=== PATIENT | female | born 1955 | race Caucasian/White ===

== ENCOUNTER 2022-07-05 13:08 | Inpatient (IN) | payer OTHER ==
[~2022-07-05] VITALS: Ht 160 cm; Wt 82.2 kg
[2022-07-05 13:39] LABS: Basophils # (auto) 0.1 10 ^3/uL (0-0.2); Basophils % (auto) 0.8 % (0.0-2.0); Eosinophils # (auto) 0.2 10 ^3/uL (0-0.8); Eosinophils % (auto) 2.3 % (0.0-7.0); Hematocrit 31.7 % (36.0-46.0); Hemoglobin 10.6 g/dL (12.2-16.2); Lymphocytes # (auto) 1.1 10 ^3/uL (0.4-5.4); Lymphocytes % (auto) 14.7 % (10.0-50.0); Mean Corpuscular Hemoglobin 31.6 pg (28.0-32.0); Mean Corpuscular Hgb Conc. 33.5 g/dL (32.0-36.0); Mean Corpuscular Volume 94.3 fL (80.0-100.0); Monocytes # (auto) 0.4 10 ^3/uL (0-1.3); Monocytes % (auto) 5.7 % (0.0-12.0); Neutrophils # (auto) 5.7 10 ^3/uL (1.6-8.6); Neutrophils % (auto) 76.5 % (37.0-80.0); Nucleated Red Blood Cells % 0.1 %; Red Blood Cells 3.36 10^6/uL (4.0-5.20); Red Cell Distribution Width 13.4 % (11.8-14.3); White Blood Cell 7.5 10^3/uL (4.4-10.8)
[2022-07-05 14:04] LABS: Albumin 3.7 g/dL (3.4-5.0); Calcium 8.5 mg/dL (8.5-10.1); Potassium 4.4 mmol/L (3.5-5.1)
[2022-07-05 14:08] LABS: Bilirubin, Total 0.6 mg/dL (0.2-1.0); Total Protein 6.7 g/dL (6.4-8.2)
[2022-07-05 14:09] LABS: BUN/Creatinine Ratio 6.9
[2022-07-05] MEDS ORDERED: FUROSEMIDE 40 MG/4 ML VIAL IV ONE (15:45)
[2022-07-05] MEDS ORDERED: ENOXAPARIN SOD 80 MG/0.8ML SYRINGE SC ONE (15:45)
[2022-07-05 16:50] LABS: Urine Bacteria NONE SEEN /hpf (None Seen); Urine Blood TRACE /uL (Negative); Urine Specific Gravity 1.009 (1.001-1.035); Urine WBC 3 /hpf (0 - 5)
[2022-07-05] MEDS ORDERED: ATOR40TA52 PO (17:09)
[2022-07-05] MEDS ORDERED: SEVE800T10 PO (17:09)
[2022-07-05] MEDS ORDERED: ATEN50TA PO (17:09)
[2022-07-05] MEDS ORDERED: CALC667C PO (17:09)
[2022-07-05] MEDS ORDERED: ALBUTEROL SULF 2.5 MG/0.5ML(0.5%) NEB SOLN NEB PRN (17:15)
[2022-07-05] MEDS ORDERED: DEXTROSE (50%) 50ML SYRG IV PRN (17:15)
[2022-07-05 17:27] LABS: Cholesterol 116 mg/dL (< 200); Triglycerides 230 mg/dL (< 150)
[2022-07-05 17:29] LABS: HDL Cholesterol 39 mg/dL (40-59); LDL Cholesterol 57 mg/dL (< 100)
[2022-07-05] MEDS: IPRATROPIUM BROM 0.5 MG/2.5ML INH SOL NEB SCH (18:47)
[2022-07-05] MEDS: ALBUTEROL SULF 2.5 MG/0.5ML(0.5%) NEB SOLN NEB SCH (18:47)
[2022-07-05] MEDS: ACCU-CHEK COMFORT CURVE STRIP VI SCH (22:08)
[2022-07-05] MEDS: hydrALAZINE HCL 20 MG/ML VL IV PRN (22:09)
[2022-07-05] MEDS: InsuLIN REG 1unit/0.01ml Soln (100units/ml) SC SCH (22:11)
[2022-07-05] MEDS: SODIUM CHLOR 0.9% PF (SALINE LOCK) 10ML VIAL/SYR IV SCH (22:11)
[2022-07-06] MEDS: ALBUTEROL SULF 2.5 MG/0.5ML(0.5%) NEB SOLN NEB SCH ×4 (00:16→18:38)
[2022-07-06] MEDS: IPRATROPIUM BROM 0.5 MG/2.5ML INH SOL NEB SCH ×4 (00:16→18:39)
[2022-07-06 01:39] VITALS: BP 198/90
[2022-07-06] MEDS: ACETAMINOPHEN 325 MG TAB PO PRN ×2 (02:52→18:49)
[2022-07-06 05:00] VITALS: BP 178/75
[2022-07-06] MEDS: SODIUM CHLOR 0.9% PF (SALINE LOCK) 10ML VIAL/SYR IV SCH ×3 (06:30→22:27)
[2022-07-06] MEDS: ACCU-CHEK COMFORT CURVE STRIP VI SCH ×4 (06:30→22:27)
[2022-07-06] MEDS: hydrALAZINE HCL 20 MG/ML VL IV PRN ×4 (06:34→18:49)
[2022-07-06] MEDS: InsuLIN REG 1unit/0.01ml Soln (100units/ml) SC SCH ×4 (06:35→22:38)
[2022-07-06 07:36] LABS: Basophils # (auto) 0.1 10 ^3/uL (0-0.2); Eosinophils # (auto) 0.2 10 ^3/uL (0-0.8); Eosinophils % (auto) 2.1 % (0.0-7.0); Hematocrit 32.5 % (36.0-46.0); Hemoglobin 10.6 g/dL (12.2-16.2); Lymphocytes # (auto) 1.6 10 ^3/uL (0.4-5.4); Lymphocytes % (auto) 16.9 % (10.0-50.0); Mean Corpuscular Hemoglobin 30.7 pg (28.0-32.0); Mean Corpuscular Hgb Conc. 32.5 g/dL (32.0-36.0); Mean Corpuscular Volume 94.4 fL (80.0-100.0); Monocytes # (auto) 0.5 10 ^3/uL (0-1.3); Monocytes % (auto) 5.1 % (0.0-12.0); Neutrophils % (auto) 74.9 % (37.0-80.0); Nucleated Red Blood Cells % 0.1 %; Red Blood Cells 3.45 10^6/uL (4.0-5.20); Red Cell Distribution Width 13.5 % (11.8-14.3); White Blood Cell 9.3 10^3/uL (4.4-10.8)
[2022-07-06 07:55] LABS: Albumin 3.6 g/dL (3.4-5.0); BUN/Creatinine Ratio 7.4; Calcium 8.6 mg/dL (8.5-10.1); Potassium 4.3 mmol/L (3.5-5.1)
[2022-07-06 08:14] LABS: Bilirubin, Total 0.4 mg/dL (0.2-1.0); Total Protein 7.1 g/dL (6.4-8.2)
[2022-07-06 09:09] VITALS: BP 185/85
[2022-07-06] MEDS ORDERED: ENOXAPARIN SOD 40 MG/0.4 ML SYRINGE SC SCH (10:00)
[2022-07-06] MEDS ORDERED: SODIUM CHL 0.9% 1000 ML BAG XX ONE (10:30)
[2022-07-06] MEDS: HEPARIN SODIUM (PORCINE) 5000 UNITS/ML 1ML VIAL SC SCH ×2 (10:42→22:28)
[2022-07-06 12:11] VITALS: BP 191/83
[2022-07-06 18:15] VITALS: BP 182/78
[2022-07-06] MEDS ORDERED: EPOETIN ALFA-EPBX 4,000 UNIT/ML VIAL SC ONE (21:00)
[2022-07-06 22:00] VITALS: BP 125/80
[2022-07-07] MEDS: ALBUTEROL SULF 2.5 MG/0.5ML(0.5%) NEB SOLN NEB SCH ×4 (00:22→19:40)
[2022-07-07] MEDS: IPRATROPIUM BROM 0.5 MG/2.5ML INH SOL NEB SCH ×4 (00:22→19:40)
[2022-07-07 05:00] VITALS: BP 170/77
[2022-07-07] MEDS: SODIUM CHLOR 0.9% PF (SALINE LOCK) 10ML VIAL/SYR IV SCH ×3 (06:00→22:19)
[2022-07-07] MEDS: hydrALAZINE HCL 20 MG/ML VL IV PRN ×2 (06:36→12:29)
[2022-07-07] MEDS: ACCU-CHEK COMFORT CURVE STRIP VI SCH ×4 (06:37→22:11)
[2022-07-07] MEDS: InsuLIN REG 1unit/0.01ml Soln (100units/ml) SC SCH ×4 (06:46→22:12)
[2022-07-07 09:00] VITALS: BP 176/76
[2022-07-07] MEDS: HEPARIN SODIUM (PORCINE) 5000 UNITS/ML 1ML VIAL SC SCH ×2 (10:00→22:19)
[2022-07-07] MEDS: ACETAMINOPHEN 325 MG TAB PO PRN ×2 (10:39→13:23)
[2022-07-07] MEDS ORDERED: ATENOLOL 50 MG TAB PO ONE (12:30)
[2022-07-07 13:00] VITALS: BP 181/93
[2022-07-07] MEDS: ONDANSETRON HCL 4 MG/2 ML VIAL IV PRN (13:12)
[2022-07-07 17:00] VITALS: BP 130/51
[2022-07-07 22:00] VITALS: BP 134/63
[2022-07-08] MEDS: IPRATROPIUM BROM 0.5 MG/2.5ML INH SOL NEB SCH ×4 (00:13→18:50)
[2022-07-08] MEDS: ALBUTEROL SULF 2.5 MG/0.5ML(0.5%) NEB SOLN NEB SCH ×4 (00:14→18:50)
[2022-07-08 05:00] VITALS: BP 140/57
[2022-07-08] MEDS: ACCU-CHEK COMFORT CURVE STRIP VI SCH ×4 (06:24→21:38)
[2022-07-08] MEDS: InsuLIN REG 1unit/0.01ml Soln (100units/ml) SC SCH ×4 (06:24→21:39)
[2022-07-08] MEDS: SODIUM CHLOR 0.9% PF (SALINE LOCK) 10ML VIAL/SYR IV SCH ×3 (06:28→21:39)
[2022-07-08 09:00] VITALS: BP 140/63
[2022-07-08] MEDS: ATENOLOL 50 MG TAB PO SCH (09:42)
[2022-07-08] MEDS: HEPARIN SODIUM (PORCINE) 5000 UNITS/ML 1ML VIAL SC SCH ×2 (09:43→21:38)
[2022-07-08 13:00] VITALS: BP 113/62
[2022-07-08] MEDS ORDERED: LACTULOSE 20Gm/30ML SOLN PO STA (16:56)
[2022-07-08 17:00] VITALS: BP 121/49
[2022-07-08] MEDS: ONDANSETRON HCL 4 MG/2 ML VIAL IV PRN ×2 (18:32→23:47)
[2022-07-08] MEDS: ACETAMINOPHEN 325 MG TAB PO PRN (19:30)
[2022-07-08 20:49] VITALS: BP 121/49
[2022-07-08] MEDS: hydrALAZINE HCL 20 MG/ML VL IV PRN (21:32)
[2022-07-08] MEDS: LACTULOSE 20Gm/30ML SOLN PO PRN (21:38)
[2022-07-08 22:00] VITALS: BP 164/56
[2022-07-09] MEDS: IPRATROPIUM BROM 0.5 MG/2.5ML INH SOL NEB SCH ×5 (00:10→23:53)
[2022-07-09] MEDS: ALBUTEROL SULF 2.5 MG/0.5ML(0.5%) NEB SOLN NEB SCH ×5 (00:10→23:53)
[2022-07-09] MEDS: ACETAMINOPHEN 325 MG TAB PO PRN (02:11)
[2022-07-09 05:00] VITALS: BP 137/74
[2022-07-09 05:41] LABS: Basophils # (auto) 0.1 10 ^3/uL (0-0.2); Basophils % (auto) 0.5 % (0.0-2.0); Eosinophils # (auto) 0 10 ^3/uL (0-0.8); Eosinophils % (auto) 0.1 % (0.0-7.0); Hematocrit 31.9 % (36.0-46.0); Lymphocytes # (auto) 0.5 10 ^3/uL (0.4-5.4); Lymphocytes % (auto) 3.4 % (10.0-50.0); Mean Corpuscular Hgb Conc. 31.4 g/dL (32.0-36.0); Mean Corpuscular Volume 95.5 fL (80.0-100.0); Monocytes % (auto) 6.2 % (0.0-12.0); Neutrophils # (auto) 14.3 10 ^3/uL (1.6-8.6); Neutrophils % (auto) 89.8 % (37.0-80.0); Red Blood Cells 3.34 10^6/uL (4.0-5.20); White Blood Cell 15.9 10^3/uL (4.4-10.8)
[2022-07-09 05:51] LABS: Albumin 3.4 g/dL (3.4-5.0); BUN/Creatinine Ratio 6.5; Potassium 4.4 mmol/L (3.5-5.1)
[2022-07-09 05:54] LABS: Bilirubin, Total 4.1 mg/dL (0.2-1.0); Total Protein 7.7 g/dL (6.4-8.2)
[2022-07-09] MEDS: SODIUM CHLOR 0.9% PF (SALINE LOCK) 10ML VIAL/SYR IV SCH ×3 (06:11→22:08)
[2022-07-09] MEDS: ACCU-CHEK COMFORT CURVE STRIP VI SCH ×4 (06:11→22:08)
[2022-07-09] MEDS: InsuLIN REG 1unit/0.01ml Soln (100units/ml) SC SCH ×4 (06:29→22:11)
[2022-07-09] MEDS ORDERED: SODIUM CHL 0.9% 1000 ML BAG XX ONE (07:00)
[2022-07-09 07:50] VITALS: BP 146/81
[2022-07-09] MEDS ORDERED: IOHEXOL 350 MG/ML 100ML IJ ONE (08:11)
[2022-07-09 09:00] VITALS: BP 146/81
[2022-07-09] MEDS: PANTOPRAZOLE 40 MG TAB PO SCH (10:43)
[2022-07-09] MEDS: HEPARIN SODIUM (PORCINE) 5000 UNITS/ML 1ML VIAL SC SCH ×2 (10:44→22:08)
[2022-07-09] MEDS: ATENOLOL 50 MG TAB PO SCH ×2 (10:49→14:47)
[2022-07-09 13:00] VITALS: BP 137/60
[2022-07-09] MEDS ORDERED: AZITHROMYCIN 500MG/ 250ML 250 ML IV ONE (13:30)
[2022-07-09] MEDS ORDERED: cefTRIAXone 1GM/50ML D5W 50 ML IV ONE (13:30)
[2022-07-09] MEDS ORDERED: DOCUSATE SOD 100 MG CAP PO ONE (13:30)
[2022-07-09 17:00] VITALS: BP 126/61
[2022-07-09 22:00] VITALS: BP 111/49
[2022-07-09] MEDS: DOCUSATE SOD 100 MG CAP PO SCH (22:08)
[2022-07-10] VITALS (7 sets, daily range): BP systolic 120–132; BP diastolic 53–69
[2022-07-10 05:32] LABS: Basophils # (auto) 0 10 ^3/uL (0-0.2); Basophils % (auto) 0.6 % (0.0-2.0); Eosinophils # (auto) 0.2 10 ^3/uL (0-0.8); Eosinophils % (auto) 2.8 % (0.0-7.0); Hematocrit 28.6 % (36.0-46.0); Hemoglobin 9.5 g/dL (12.2-16.2); Lymphocytes # (auto) 0.7 10 ^3/uL (0.4-5.4); Lymphocytes % (auto) 8.7 % (10.0-50.0); Mean Corpuscular Hemoglobin 31.5 pg (28.0-32.0); Mean Corpuscular Hgb Conc. 33.3 g/dL (32.0-36.0); Mean Corpuscular Volume 94.5 fL (80.0-100.0); Monocytes # (auto) 0.5 10 ^3/uL (0-1.3); Monocytes % (auto) 6.3 % (0.0-12.0); Neutrophils # (auto) 6.1 10 ^3/uL (1.6-8.6); Neutrophils % (auto) 81.6 % (37.0-80.0); Nucleated Red Blood Cells % 0.1 %; Red Blood Cells 3.03 10^6/uL (4.0-5.20); Red Cell Distribution Width 13.9 % (11.8-14.3); White Blood Cell 7.5 10^3/uL (4.4-10.8)
[2022-07-10] MEDS: IPRATROPIUM BROM 0.5 MG/2.5ML INH SOL NEB SCH ×4 (06:00→23:35)
[2022-07-10] MEDS: ALBUTEROL SULF 2.5 MG/0.5ML(0.5%) NEB SOLN NEB SCH ×4 (06:00→23:35)
[2022-07-10 06:05] LABS: Calcium 8.2 mg/dL (8.5-10.1)
[2022-07-10] MEDS: SODIUM CHLOR 0.9% PF (SALINE LOCK) 10ML VIAL/SYR IV SCH ×3 (06:15→22:36)
[2022-07-10] MEDS: ACCU-CHEK COMFORT CURVE STRIP VI SCH ×4 (06:15→22:41)
[2022-07-10] MEDS: InsuLIN REG 1unit/0.01ml Soln (100units/ml) SC SCH ×4 (06:15→22:49)
[2022-07-10 06:31] LABS: BUN/Creatinine Ratio 6.8; Potassium 4.2 mmol/L (3.5-5.1)
[2022-07-10] MEDS: cefTRIAXone 1GM/50ML D5W 50 ML IV SCH (08:37)
[2022-07-10] MEDS: PANTOPRAZOLE 40 MG TAB PO SCH (10:31)
[2022-07-10] MEDS: DOCUSATE SOD 100 MG CAP PO SCH ×2 (10:31→22:36)
[2022-07-10] MEDS: ATENOLOL 50 MG TAB PO SCH (10:32)
[2022-07-10] MEDS: AZITHROMYCIN 500MG/ 250ML 250 ML IV SCH (10:33)
[2022-07-10] MEDS: HEPARIN SODIUM (PORCINE) 5000 UNITS/ML 1ML VIAL SC SCH ×2 (10:37→22:36)
[2022-07-10] MEDS ORDERED: ALUM & MAG HYDROX-SIMETH LIQ(MAALOX) 30 ML PO PRN (11:15)
[2022-07-10] MEDS ORDERED: diphenhdrAMINE HCL 25 MG CAP PO PRN (11:15)
[2022-07-11 05:00] VITALS: BP 133/51
[2022-07-11] MEDS: IPRATROPIUM BROM 0.5 MG/2.5ML INH SOL NEB SCH ×2 (05:55→11:22)
[2022-07-11] MEDS: ALBUTEROL SULF 2.5 MG/0.5ML(0.5%) NEB SOLN NEB SCH ×2 (05:56→11:22)
[2022-07-11] MEDS: SODIUM CHLOR 0.9% PF (SALINE LOCK) 10ML VIAL/SYR IV SCH ×2 (06:24→14:23)
[2022-07-11] MEDS: ACCU-CHEK COMFORT CURVE STRIP VI SCH ×3 (06:24→16:27)
[2022-07-11] MEDS: InsuLIN REG 1unit/0.01ml Soln (100units/ml) SC SCH ×3 (06:26→17:45)
[2022-07-11 06:30] LABS: % Iron Saturation 49.8 % (15-50)
[2022-07-11 06:32] LABS: Hematocrit 29.4 % (36.0-46.0); Hemoglobin 9.5 g/dL (12.2-16.2)
[2022-07-11] MEDS ORDERED: SODIUM CHL 0.9% 1000 ML BAG XX ONE (07:00)
[2022-07-11 08:30] VITALS: BP 99/56
[2022-07-11 09:00] VITALS: BP 99/56
[2022-07-11] MEDS: PANTOPRAZOLE 40 MG TAB PO SCH (09:46)
[2022-07-11] MEDS: DOCUSATE SOD 100 MG CAP PO SCH (09:46)
[2022-07-11] MEDS: ATENOLOL 50 MG TAB PO SCH (09:47)
[2022-07-11] MEDS: cefTRIAXone 1GM/50ML D5W 50 ML IV SCH (09:48)
[2022-07-11] MEDS: HEPARIN SODIUM (PORCINE) 5000 UNITS/ML 1ML VIAL SC SCH (09:49)
[2022-07-11] MEDS ORDERED: PANT40TA2 PO (10:38)
[2022-07-11] MEDS ORDERED: DIPH25CA66 PO (10:38)
[2022-07-11] MEDS: AZITHROMYCIN 500MG/ 250ML 250 ML IV SCH (12:24)
[2022-07-11 13:00] VITALS: BP 105/51
[2022-07-11 14:00] VITALS: BP 119/58
[2022-07-11] MEDS: LACTULOSE 20Gm/30ML SOLN PO PRN (14:53)
[2022-07-11 16:35] VITALS: BP 151/72
== END 2022-07-11 17:55 | disposition home or self-care (01) | DRG 291 ==
LOC: ER 13:08 → OVERFLOW 17:05 → CENTRAL 07-06 02:04
PROVIDERS: ADMIT Nurse Practitioner Family; ATTEND Internal Medicine Geriatric Medicine
PROC: 5A1D70Z Performance of Urinary Filtration, Intermittent, Less than 6 Hours Per Day (ICD-10-PCS; principal; 2022-07-07)
PROC: 5A1D70Z Performance of Urinary Filtration, Intermittent, Less than 6 Hours Per Day (ICD-10-PCS; 2022-07-09)
PROC: 5A1D70Z Performance of Urinary Filtration, Intermittent, Less than 6 Hours Per Day (ICD-10-PCS; 2022-07-11)
DX: I13.2 Hypertensive heart and chronic kidney disease with heart failure and with stage 5 chronic kidney disease, or end stage renal disease (principal); I50.43 Acute on chronic combined systolic (congestive) and diastolic (congestive) heart failure; J96.01 Acute respiratory failure with hypoxia; N18.6 End stage renal disease; E87.1 Hypo-osmolality and hyponatremia; J91.8 Pleural effusion in other conditions classified elsewhere; Z20.822 Contact with and (suspected) exposure to COVID-19; D63.1 Anemia in chronic kidney disease; E11.22 Type 2 diabetes mellitus with diabetic chronic kidney disease; D72.829 Elevated white blood cell count, unspecified; E66.9 Obesity, unspecified; E78.5 Hyperlipidemia, unspecified; K59.00 Constipation, unspecified; M89.8X9 Other specified disorders of bone, unspecified site; Z68.31 Body mass index [BMI] 31.0-31.9, adult; Z83.3 Family history of diabetes mellitus; Z79.4 Long term (current) use of insulin; Z99.2 Dependence on renal dialysis; Z90.49 Acquired absence of other specified parts of digestive tract
CPT/HCPCS: 36415; 71045; 71275; 80048; 80053; 80061; 81001; 82728; 82962; 83036; 83540; 83550; 83880; 84443; 84484; 85014; 85018; 85025; 85379; 87081; 87426; 87804; 90935; 93005; 93306; 94640; 96372; 96374; 97163; G0378; J0696; J1642; J1815; J2405

== ENCOUNTER 2022-07-15 13:08 | Emergency (ER) | payer MEDICARE, OTHER ==
[~2022-07-15] VITALS: Ht 152.4 cm; Wt 75.9 kg
[~2022-07-15 13:08] MED LIST: ATEN50TA PO; ATOR40TA52 PO; CALC667C PO; DIPH25CA66 PO; PANT40TA2 PO; SEVE800T10 PO
[2022-07-15 15:20] VITALS: BP 137/73
[2022-07-15] MEDS ORDERED: FLEET ENEMA(ADULT) 135 ML PR ONE (15:45)
[2022-07-15] MEDS ORDERED: LACTULOSE 20Gm/30ML SOLN PO ONE (15:45)
[2022-07-15] MEDS ORDERED: LACT10SO70 PO (17:18)
== END 2022-07-15 18:11 | disposition home or self-care (01) ==
LOC: ER 13:08
DX: K56.41 Fecal impaction (principal); I12.9 Hypertensive chronic kidney disease with stage 1 through stage 4 chronic kidney disease, or unspecified chronic kidney disease; E11.22 Type 2 diabetes mellitus with diabetic chronic kidney disease; N18.9 Chronic kidney disease, unspecified; Z79.899 Other long term (current) drug therapy; Z79.84 Long term (current) use of oral hypoglycemic drugs
CPT/HCPCS: 74018

== ENCOUNTER 2023-07-22 23:10 | Inpatient (IN) | payer MEDICARE, OTHER ==
[~2023-07-22] VITALS: Ht 160 cm; Wt 78.0 kg
[~2023-07-22 23:10] MED LIST changes: +LACT10SO70 PO
[2023-07-22] MEDS ORDERED: FUROSEMIDE 40 MG/4 ML VIAL IV ONE (23:30)
[2023-07-22 23:45] VITALS: PULSE 89; RESP 17; O2SAT 100
[2023-07-22] MEDS ORDERED: ONDANSETRON HCL 4 MG/2 ML VIAL IV ONE (23:45)
[2023-07-23] VITALS (14 sets, daily range): BP systolic 112–186; BP diastolic 43–129; PULSE 70–113; RESP 18–29; TEMP 97.6; O2SAT 93–100
[2023-07-23 00:30] LABS: Basophils # (auto) 0.1 10 ^3/uL (0-0.2); Basophils % (auto) 0.6 % (0.0-2.0); Eosinophils # (auto) 0.2 10 ^3/uL (0-0.8); Eosinophils % (auto) 1.6 % (0.0-7.0); Hematocrit 34.2 % (36.0-46.0); Hemoglobin 10.6 g/dL (12.2-16.2); Lymphocytes # (auto) 2.6 10 ^3/uL (0.4-5.4); Lymphocytes % (auto) 20.4 % (10.0-50.0); Mean Corpuscular Hemoglobin 29.1 pg (28.0-32.0); Mean Corpuscular Hgb Conc. 31.2 g/dL (32.0-36.0); Mean Corpuscular Volume 93.3 fL (80.0-100.0); Monocytes # (auto) 0.5 10 ^3/uL (0-1.3); Monocytes % (auto) 4.2 % (0.0-12.0); Neutrophils # (auto) 9.2 10 ^3/uL (1.6-8.6); Neutrophils % (auto) 73.2 % (37.0-80.0); Red Blood Cells 3.66 10^6/uL (4.0-5.20); Red Cell Distribution Width 14.5 % (11.8-14.3); White Blood Cell 12.5 10^3/uL (4.4-10.8)
[2023-07-23 00:42] LABS: Alanine Aminotransferase 116 U/L (7-40); Albumin 4.9 g/dL (3.2-4.8); Alkaline Phosphatase 160 U/L (46-116); Anion Gap 13 (5-15); Aspartate Aminotransferase 111 U/L (13-40); BUN/Creatinine Ratio 8.4 (10.0-20.0); Blood Urea Nitrogen 71 mg/dL (9-23); Calcium 8.6 mg/dL (8.7-10.4); Carbon Dioxide 24 mmol/L (20-30); Chloride 104 mmol/L (98-107); Glucose 210 mg/dL (74-106); Magnesium 2.7 mg/dL (1.6-2.6); Potassium 4.1 mmol/L (3.5-5.1); Sodium 141 mmol/L (136-145)
[2023-07-23 00:43] LABS: Bilirubin, Total 0.2 mg/dL (0.2-1.0); Total Protein 7.9 g/dL (5.7-8.2)
[2023-07-23 01:33] LABS: COVID19 ANTIGEN SOFIA FIA NEGATIVE (NEGATIVE); Rapid Influenza A Negative (Negative); Rapid Influenza B Negative (Negative)
[2023-07-23 01:54] LABS: Base Excess -2.6 mmol/L (-2.0-2.0)
[2023-07-23] MEDS ORDERED: DEXTROSE (50%) 50ML SYRG IV PRN (05:45)
[2023-07-23] MEDS ORDERED: ENOXAPARIN SOD 100 MG/1 ML SYRINGE SC ONE (05:45)
[2023-07-23] MEDS ORDERED: ONDANSETRON HCL 4 MG/2 ML VIAL IV PRN (05:45)
[2023-07-23] MEDS ORDERED: MORPHINE SULFATE INJ 2 MG/ml SYRG IV PRN (05:45)
[2023-07-23] MEDS ORDERED: NITROGLYCERIN 0.4 MG SL TAB SL PRN (05:45)
[2023-07-23] MEDS: GABAPENTIN 100 MG CAP PO SCH ×3 (06:24→22:00)
[2023-07-23] MEDS: ACCU-CHEK COMFORT CURVE STRIP VI SCH ×4 (06:32→22:15)
[2023-07-23] MEDS: InsuLIN REG 1unit/0.01ml Soln (100units/ml) SC SCH ×4 (06:42→22:16)
[2023-07-23] MEDS: MIDAZOLAM DRIP 50 mg/50mL 50 ML IV SCH ×3 (07:30→14:25)
[2023-07-23] MEDS: SEVELAMER 800 MG TAB PO SCH ×3 (08:00→17:59)
[2023-07-23] MEDS: CALCIUM ACETATE 667 MG CAP PO SCH ×3 (08:00→17:59)
[2023-07-23] MEDS: PROPOFOL 100 ML IV SCH (09:00)
[2023-07-23 09:25] LABS: Base Excess -2.6 mmol/L (-2.0-2.0)
[2023-07-23 09:34] LABS: Prothrombin Time 10.9 sec (9.3-11.8)
[2023-07-23 09:35] LABS: INR 1.02 (0.9-1.15)
[2023-07-23] MEDS: NOREPINEPHRINE 8 MG/250ML KIT 250 ML IV SCH (09:45)
[2023-07-23] MEDS ORDERED: CARVEDILOL 3.125 MG TAB PO SCH (10:00)
[2023-07-23] MEDS ORDERED: FUROSEMIDE 40 MG TAB PO SCH ×3 (10:00→22:00)
[2023-07-23 12:42] LABS: Basophils # (auto) 0.1 10 ^3/uL (0-0.2); Basophils % (auto) 0.3 % (0.0-2.0); Eosinophils # (auto) 0.1 10 ^3/uL (0-0.8); Eosinophils % (auto) 0.2 % (0.0-7.0); Hemoglobin 9.9 g/dL (12.2-16.2); Lymphocytes # (auto) 0.9 10 ^3/uL (0.4-5.4); Lymphocytes % (auto) 3.7 % (10.0-50.0); Mean Corpuscular Volume 93.6 fL (80.0-100.0); Monocytes # (auto) 0.5 10 ^3/uL (0-1.3); Monocytes % (auto) 1.8 % (0.0-12.0); Neutrophils # (auto) 23.4 10 ^3/uL (1.6-8.6); Red Blood Cells 3.41 10^6/uL (4.0-5.20); Red Cell Distribution Width 14.9 % (11.8-14.3)
[2023-07-23 12:51] LABS: Alanine Aminotransferase 139 U/L (7-40); Albumin 4.1 g/dL (3.2-4.8); Alkaline Phosphatase 122 U/L (46-116); Anion Gap 12 (5-15); Aspartate Aminotransferase 110 U/L (13-40); BUN/Creatinine Ratio 9.4 (10.0-20.0); Calcium 9.3 mg/dL (8.7-10.4); Carbon Dioxide 25 mmol/L (20-30); Chloride 105 mmol/L (98-107); Glucose 245 mg/dL (74-106); Magnesium 2.7 mg/dL (1.6-2.6); Potassium 4.9 mmol/L (3.5-5.1); Sodium 142 mmol/L (136-145)
[2023-07-23 12:52] LABS: Bilirubin, Total 0.2 mg/dL (0.2-1.0); Total Protein 6.7 g/dL (5.7-8.2)
[2023-07-23 13:07] LABS: Blood Urea Nitrogen 82 mg/dL (9-23)
[2023-07-23] MEDS: FUROSEMIDE 40 MG/4 ML VIAL IV SCH (17:59)
[2023-07-23] MEDS ORDERED: ATORVASTATIN 20 MG TAB PO SCH (22:00)
[2023-07-23] MEDS ORDERED: CALCIUM CHLOR(10%) 100MG/ML 10ML SYRINGE IV ONE (22:38)
[2023-07-23] MEDS ORDERED: EPINEPHrine HCL 1 MG/10 ML SYRG IV ONE (22:40)
[2023-07-23 23:59] LABS: Urine Epithelial Cast None Seen /hpf (<5)
[2023-07-24] VITALS (13 sets, daily range): BP systolic 119–164; BP diastolic 50–81; PULSE 74–99; RESP 20–23; O2SAT 95–100
[2023-07-24 00:31] LABS: Urine Bacteria NONE SEEN /hpf (None Seen); Urine Blood 3+ /uL (Negative); Urine Clarity Clear (Clear); Urine Color Yellow (Yellow); Urine Protein, UAD 2+ (Negative); Urine Specific Gravity 1.014 (1.001-1.035); Urine Urobilinogen Normal (Negative); Urine WBC 1 /hpf (0 - 5)
[2023-07-24] MEDS: GABAPENTIN 100 MG CAP PO SCH ×3 (06:00→23:06)
[2023-07-24 06:52] LABS: Base Excess -1.9 mmol/L (-2.0-2.0)
[2023-07-24] MEDS ORDERED: SODIUM CHL 0.9% 1000 ML BAG XX ONE (07:00)
[2023-07-24] MEDS: InsuLIN REG 1unit/0.01ml Soln (100units/ml) SC SCH ×4 (07:00→23:06)
[2023-07-24] MEDS: ACCU-CHEK COMFORT CURVE STRIP VI SCH ×4 (07:06→22:31)
[2023-07-24] MEDS: FUROSEMIDE 40 MG/4 ML VIAL IV SCH ×2 (07:07→18:48)
[2023-07-24 07:11] LABS: Basophils # (auto) 0 10 ^3/uL (0-0.2); Basophils % (auto) 0.3 % (0.0-2.0); Eosinophils # (auto) 0 10 ^3/uL (0-0.8); Eosinophils % (auto) 0.3 % (0.0-7.0); Hematocrit 28.3 % (36.0-46.0); Hemoglobin 8.9 g/dL (12.2-16.2); Lymphocytes % (auto) 8.2 % (10.0-50.0); Mean Corpuscular Hemoglobin 29.1 pg (28.0-32.0); Mean Corpuscular Hgb Conc. 31.5 g/dL (32.0-36.0); Mean Corpuscular Volume 92.3 fL (80.0-100.0); Monocytes # (auto) 0.4 10 ^3/uL (0-1.3); Monocytes % (auto) 3.3 % (0.0-12.0); Neutrophils # (auto) 10.3 10 ^3/uL (1.6-8.6); Neutrophils % (auto) 87.9 % (37.0-80.0); Nucleated Red Blood Cells % 0.1 %; Red Blood Cells 3.06 10^6/uL (4.0-5.20); Red Cell Distribution Width 14.8 % (11.8-14.3); White Blood Cell 11.7 10^3/uL (4.4-10.8)
[2023-07-24 07:29] LABS: Alanine Aminotransferase 93 U/L (7-40); Alkaline Phosphatase 87 U/L (46-116); Anion Gap 14 (5-15); Aspartate Aminotransferase 58 U/L (13-40); BUN/Creatinine Ratio 10.1 (10.0-20.0); Carbon Dioxide 23 mmol/L (20-30); Chloride 103 mmol/L (98-107); Glucose 137 mg/dL (74-106); Sodium 140 mmol/L (136-145)
[2023-07-24 07:30] LABS: Bilirubin, Total 0.3 mg/dL (0.2-1.0); Total Protein 6.6 g/dL (5.7-8.2)
[2023-07-24] MEDS: PROPOFOL 100 ML IV SCH (07:30)
[2023-07-24] MEDS: NOREPINEPHRINE 8 MG/250ML KIT 250 ML IV SCH (07:30)
[2023-07-24 07:36] LABS: Blood Urea Nitrogen 97 mg/dL (9-23); Potassium 5.6 mmol/L (3.5-5.1)
[2023-07-24] MEDS: SEVELAMER 800 MG TAB PO SCH ×3 (07:41→18:00)
[2023-07-24] MEDS: CALCIUM ACETATE 667 MG CAP PO SCH ×3 (08:00→18:00)
[2023-07-24] MEDS: PANTOPRAZOLE 40 MG/10 ML VIAL INJ IV SCH (08:05)
[2023-07-24] MEDS: ASPirin 81 mg TAB PO SCH (08:05)
[2023-07-24] MEDS ORDERED: ENOXAPARIN SOD 40 MG/0.4 ML SYRINGE SC SCH (10:00)
[2023-07-24] MEDS ORDERED: ENOXAPARIN SOD 30 MG/0.3 ML SYRINGE SC SCH (10:00)
[2023-07-24] MEDS ORDERED: HEPARIN DRIP/D5W 100UNITS/ML 250 ML IV SCH (10:45)
[2023-07-24] MEDS ORDERED: ALBUMIN 25% 100 ML IV ONE ×2 (12:15)
[2023-07-24] MEDS ORDERED: ALBUMIN 25% 200 ML IV ONE (12:23)
[2023-07-24 13:01] LABS: INR 1.02 (0.9-1.15); Partial Thromboplastin Time 27.1 SEC (24.5-34.5); Prothrombin Time 10.9 sec (9.3-11.8)
[2023-07-24 19:36] LABS: INR 1.06 (0.9-1.15); Partial Thromboplastin Time 40.2 SEC (24.5-34.5); Prothrombin Time 11.3 sec (9.3-11.8)
[2023-07-24] MEDS ORDERED: EPOETIN ALFA-EPBX 4,000 UNIT/ML VIAL SC ONE (21:00)
[2023-07-24] MEDS: HEPARIN DRIP/D5W 100UNITS/ML 250 ML IV SCH (21:21)
[2023-07-24] MEDS: ACETAMINOPHEN 650 MG RECT SUPP PR PRN (23:58)
[2023-07-25] VITALS (74 sets, daily range): BP systolic 114–166; BP diastolic 43–91; PULSE 76–94; RESP 20; TEMP 99.7–101.3; O2SAT 96–100
[2023-07-25] MEDS: PROPOFOL 100 ML IV SCH ×2 (00:08→21:30)
[2023-07-25] MEDS: MIDAZOLAM DRIP 50 mg/50mL 50 ML IV SCH (00:09)
[2023-07-25 03:03] LABS: Basophils # (auto) 0.1 10 ^3/uL (0-0.2); Eosinophils # (auto) 0 10 ^3/uL (0-0.8); Eosinophils % (auto) 0.2 % (0.0-7.0); Hemoglobin 8.2 g/dL (12.2-16.2); Monocytes # (auto) 0.5 10 ^3/uL (0-1.3); Red Blood Cells 2.72 10^6/uL (4.0-5.20)
[2023-07-25 03:04] LABS: Basophils % (auto) 0.6 % (0.0-2.0); Lymphocytes % (auto) 9.6 % (10.0-50.0); Mean Corpuscular Hemoglobin 30.1 pg (28.0-32.0); Mean Corpuscular Hgb Conc. 32.8 g/dL (32.0-36.0); Mean Corpuscular Volume 91.8 fL (80.0-100.0); Neutrophils % (auto) 84.6 % (37.0-80.0); Red Cell Distribution Width 15.3 % (11.8-14.3); White Blood Cell 10.7 10^3/uL (4.4-10.8)
[2023-07-25 03:27] LABS: Alanine Aminotransferase 65 U/L (7-40); Albumin 4.2 g/dL (3.2-4.8); Alkaline Phosphatase 76 U/L (46-116); Anion Gap 10 (5-15); Aspartate Aminotransferase 46 U/L (13-40); BUN/Creatinine Ratio 8.4 (10.0-20.0); Calcium 8.8 mg/dL (8.7-10.4); Carbon Dioxide 29 mmol/L (20-30); Chloride 98 mmol/L (98-107); Glucose 180 mg/dL (74-106); Magnesium 2.3 mg/dL (1.6-2.6); Potassium 4.3 mmol/L (3.5-5.1); Sodium 137 mmol/L (136-145)
[2023-07-25 03:28] LABS: Bilirubin, Total 0.5 mg/dL (0.2-1.0); Total Protein 6.5 g/dL (5.7-8.2)
[2023-07-25 03:36] LABS: INR 1.1 (0.9-1.15); Partial Thromboplastin Time 54.2 SEC (24.5-34.5); Prothrombin Time 11.7 sec (9.3-11.8)
[2023-07-25 03:46] LABS: Blood Urea Nitrogen 59 mg/dL (9-23)
[2023-07-25] MEDS: FUROSEMIDE 40 MG/4 ML VIAL IV SCH ×2 (05:46→19:30)
[2023-07-25] MEDS: GABAPENTIN 100 MG CAP PO SCH ×3 (05:46→22:15)
[2023-07-25 06:40] LABS: Base Excess 4.1 mmol/L (-2.0-2.0)
[2023-07-25] MEDS: ACCU-CHEK COMFORT CURVE STRIP VI SCH ×4 (06:46→22:14)
[2023-07-25] MEDS: InsuLIN REG 1unit/0.01ml Soln (100units/ml) SC SCH ×4 (06:52→22:18)
[2023-07-25] MEDS: NOREPINEPHRINE 8 MG/250ML KIT 250 ML IV SCH (07:30)
[2023-07-25] MEDS: SEVELAMER 800 MG TAB PO SCH ×3 (08:00→18:00)
[2023-07-25] MEDS: CALCIUM ACETATE 667 MG CAP PO SCH ×3 (08:00→18:00)
[2023-07-25 09:23] LABS: INR 1.07 (0.9-1.15); Partial Thromboplastin Time 54.6 SEC (24.5-34.5); Prothrombin Time 11.2 sec (9.3-11.8)
[2023-07-25 09:42] LABS: Triglycerides 174 mg/dL (< 150)
[2023-07-25 09:43] LABS: LDL Cholesterol 47 mg/dL (< 100)
[2023-07-25 09:44] LABS: Cholesterol 105 mg/dL (< 200); HDL Cholesterol 32 mg/dL (40-59)
[2023-07-25] MEDS: ASPirin 81 mg TAB PO SCH (10:38)
[2023-07-25] MEDS: PANTOPRAZOLE 40 MG/10 ML VIAL INJ IV SCH (10:38)
[2023-07-25] MEDS: HEPARIN DRIP/D5W 100UNITS/ML 250 ML IV SCH ×2 (10:38→17:00)
[2023-07-25] MEDS: METOPROLOL TARTRATE 25 MG TAB PO SCH ×2 (10:39→22:16)
[2023-07-25] MEDS: ACETAMINOPHEN 650 MG RECT SUPP PR PRN (15:07)
[2023-07-25 16:32] LABS: INR 1.09 (0.9-1.15); Partial Thromboplastin Time 45.2 SEC (24.5-34.5); Prothrombin Time 11.4 sec (9.3-11.8)
[2023-07-25] MEDS ORDERED: IODIXANOL 320MG/ML 100ML BTL IV ONE (16:35)
[2023-07-25] MEDS ORDERED: LIDOCAINE 2%HCL (LOCAL ANESTH.) INJ 20ML MDV ONE (16:35)
[2023-07-25] MEDS ORDERED: SODIUM CHL 0.9% 50 ML ONE (17:14)
[2023-07-25] MEDS ORDERED: ANGIOMAX 250 MG VIAL IV ONE (17:14)
[2023-07-25 23:18] LABS: INR 1.08 (0.9-1.15); Partial Thromboplastin Time 44.1 SEC (24.5-34.5); Prothrombin Time 11.3 sec (9.3-11.8)
[2023-07-26] VITALS (93 sets, daily range): BP systolic 100–149; BP diastolic 48–74; PULSE 80–94; RESP 12–21; TEMP 99.4–100.8; O2SAT 96–100
[2023-07-26] MEDS: MIDAZOLAM DRIP 50 mg/50mL 50 ML IV SCH ×2 (02:02→18:31)
[2023-07-26 06:06] LABS: Base Excess -0.1 mmol/L (-2.0-2.0)
[2023-07-26] MEDS: FUROSEMIDE 40 MG/4 ML VIAL IV SCH ×2 (06:22→18:14)
[2023-07-26] MEDS: GABAPENTIN 100 MG CAP PO SCH ×3 (06:26→21:55)
[2023-07-26 06:43] LABS: Basophils # (auto) 0 10 ^3/uL (0-0.2); Basophils % (auto) 0.3 % (0.0-2.0); Eosinophils # (auto) 0 10 ^3/uL (0-0.8); Red Cell Distribution Width 15.2 % (11.8-14.3); White Blood Cell 14.3 10^3/uL (4.4-10.8)
[2023-07-26 06:46] LABS: Eosinophils % (auto) 0.2 % (0.0-7.0); Hematocrit 24.5 % (36.0-46.0); Hemoglobin 7.8 g/dL (12.2-16.2); Lymphocytes % (auto) 6.7 % (10.0-50.0); Mean Corpuscular Volume 90.6 fL (80.0-100.0); Monocytes # (auto) 0.6 10 ^3/uL (0-1.3); Monocytes % (auto) 4.5 % (0.0-12.0); Neutrophils # (auto) 12.6 10 ^3/uL (1.6-8.6); Neutrophils % (auto) 88.3 % (37.0-80.0)
[2023-07-26 06:49] LABS: INR 1.08 (0.9-1.15); Partial Thromboplastin Time 57.6 SEC (24.5-34.5); Prothrombin Time 11.3 sec (9.3-11.8)
[2023-07-26 06:55] LABS: Alanine Aminotransferase 51 U/L (7-40); Albumin 4.2 g/dL (3.2-4.8); Alkaline Phosphatase 108 U/L (46-116); Anion Gap 15 (5-15); Aspartate Aminotransferase 27 U/L (13-40); BUN/Creatinine Ratio 9.6 (10.0-20.0); Calcium 8.6 mg/dL (8.7-10.4); Carbon Dioxide 26 mmol/L (20-30); Chloride 95 mmol/L (98-107); Glucose 198 mg/dL (74-106); Magnesium 2.4 mg/dL (1.6-2.6); Potassium 4.4 mmol/L (3.5-5.1); Sodium 136 mmol/L (136-145)
[2023-07-26 06:56] LABS: Bilirubin, Total 0.5 mg/dL (0.2-1.0); Total Protein 6.8 g/dL (5.7-8.2)
[2023-07-26] MEDS ORDERED: SODIUM CHL 0.9% 1000 ML BAG XX ONE (07:00)
[2023-07-26] MEDS: HEPARIN DRIP/D5W 100UNITS/ML 250 ML IV SCH (07:23)
[2023-07-26] MEDS: NOREPINEPHRINE 8 MG/250ML KIT 250 ML IV SCH (07:30)
[2023-07-26 07:47] LABS: Blood Urea Nitrogen 82 mg/dL (9-23)
[2023-07-26] MEDS: SEVELAMER 800 MG TAB PO SCH ×3 (08:00→18:00)
[2023-07-26] MEDS: CALCIUM ACETATE 667 MG CAP PO SCH ×3 (08:00→18:00)
[2023-07-26] MEDS: ACCU-CHEK COMFORT CURVE STRIP VI SCH ×4 (09:08→21:44)
[2023-07-26] MEDS: InsuLIN REG 1unit/0.01ml Soln (100units/ml) SC SCH ×4 (09:09→21:54)
[2023-07-26] MEDS: PANTOPRAZOLE 40 MG/10 ML VIAL INJ IV SCH (09:10)
[2023-07-26] MEDS: ASPirin 81 mg TAB PO SCH (09:10)
[2023-07-26] MEDS: METOPROLOL TARTRATE 25 MG TAB PO SCH ×2 (09:11→21:55)
[2023-07-26 14:14] LABS: INR 1.09 (0.9-1.15); Partial Thromboplastin Time 41.2 SEC (24.5-34.5); Prothrombin Time 11.4 sec (9.3-11.8)
[2023-07-26] MEDS ORDERED: cefTRIAXone 1GM/50ML D5W 50 ML IV ONE (14:15)
[2023-07-26] MEDS: LACTULOSE 20Gm/30ML SOLN PO SCH (18:14)
[2023-07-26] MEDS ORDERED: EPOETIN ALFA-EPBX 10,000 UNIT/1ML VIAL SC ONE (21:00)
[2023-07-26] MEDS ORDERED: EPOETIN ALFA-EPBX 4,000 UNIT/ML VIAL SC ONE (21:00)
[2023-07-26] MEDS ORDERED: HEPARIN SODIUM (PORCINE) 5000 UNITS/ML 1ML VIAL ONE (21:38)
[2023-07-26] MEDS: HEPARIN SODIUM (PORCINE) 5000 UNITS/ML 1ML VIAL SC SCH (21:54)
[2023-07-26] MEDS: ACETAMINOPHEN 650 MG RECT SUPP PR PRN (21:55)
[2023-07-27] VITALS (108 sets, daily range): BP systolic 74–162; BP diastolic 40–80; PULSE 69–89; RESP 17–22; TEMP 98.2–99.9; O2SAT 89–100
[2023-07-27] MEDS: LACTULOSE 20Gm/30ML SOLN PO SCH ×4 (00:21→17:41)
[2023-07-27] MEDS: PROPOFOL 100 ML IV SCH ×5 (01:23→22:00)
[2023-07-27] MEDS: NOREPINEPHRINE 8 MG/250ML KIT 250 ML IV SCH (03:09)
[2023-07-27] MEDS: FUROSEMIDE 40 MG/4 ML VIAL IV SCH ×2 (05:34→17:41)
[2023-07-27] MEDS: GABAPENTIN 100 MG CAP PO SCH ×2 (05:34→16:19)
[2023-07-27] MEDS: ACCU-CHEK COMFORT CURVE STRIP VI SCH ×4 (05:34→22:00)
[2023-07-27] MEDS: MIDAZOLAM DRIP 50 mg/50mL 50 ML IV SCH (05:34)
[2023-07-27] MEDS: InsuLIN REG 1unit/0.01ml Soln (100units/ml) SC SCH ×3 (05:46→16:59)
[2023-07-27 06:28] LABS: Basophils # (auto) 0 10 ^3/uL (0-0.2); Basophils % (auto) 0.2 % (0.0-2.0); Eosinophils # (auto) 0 10 ^3/uL (0-0.8); Eosinophils % (auto) 0.2 % (0.0-7.0); Hematocrit 26.8 % (36.0-46.0); Hemoglobin 8.5 g/dL (12.2-16.2); Lymphocytes # (auto) 0.7 10 ^3/uL (0.4-5.4); Lymphocytes % (auto) 4.1 % (10.0-50.0); Mean Corpuscular Hemoglobin 29.3 pg (28.0-32.0); Mean Corpuscular Hgb Conc. 31.8 g/dL (32.0-36.0); Mean Corpuscular Volume 92.2 fL (80.0-100.0); Monocytes % (auto) 5.4 % (0.0-12.0); Neutrophils # (auto) 15.9 10 ^3/uL (1.6-8.6); Neutrophils % (auto) 90.1 % (37.0-80.0); Red Cell Distribution Width 15.6 % (11.8-14.3); White Blood Cell 17.7 10^3/uL (4.4-10.8)
[2023-07-27 06:43] LABS: Alanine Aminotransferase 68 U/L (7-40); Albumin 4.6 g/dL (3.2-4.8); Alkaline Phosphatase 185 U/L (46-116); Anion Gap 17 (5-15); Aspartate Aminotransferase 73 U/L (13-40); BUN/Creatinine Ratio 9.3 (10.0-20.0); Bilirubin, Total 0.6 mg/dL (0.2-1.0); Blood Urea Nitrogen 42 mg/dL (9-23); Calcium 9.4 mg/dL (8.7-10.4); Carbon Dioxide 26 mmol/L (20-30); Chloride 95 mmol/L (98-107); Glucose 200 mg/dL (74-106); Potassium 3.6 mmol/L (3.5-5.1); Sodium 138 mmol/L (136-145)
[2023-07-27 06:44] LABS: Total Protein 7.8 g/dL (5.7-8.2)
[2023-07-27 07:19] LABS: Base Excess -2.1 mmol/L (-2.0-2.0)
[2023-07-27] MEDS: CALCIUM ACETATE 667 MG CAP PO SCH ×3 (08:00→18:00)
[2023-07-27] MEDS: SEVELAMER 800 MG TAB PO SCH ×3 (08:00→18:00)
[2023-07-27] MEDS: cefTRIAXone 1GM/50ML D5W 50 ML IV SCH (08:31)
[2023-07-27] MEDS: PANTOPRAZOLE 40 MG/10 ML VIAL INJ IV SCH (09:49)
[2023-07-27] MEDS: METOPROLOL TARTRATE 25 MG TAB PO SCH ×2 (09:49→22:00)
[2023-07-27] MEDS: ASPirin 81 mg TAB PO SCH (09:51)
[2023-07-27] MEDS: HEPARIN SODIUM (PORCINE) 5000 UNITS/ML 1ML VIAL SC SCH (09:51)
[2023-07-27] MEDS ORDERED: metroNIDAZOLE 500MG/100ML 100 ML IV ONE (18:15)
[2023-07-27] MEDS: metroNIDAZOLE 500MG/100ML 100 ML IV SCH (18:42)
[2023-07-27 19:07] LABS: % Iron Saturation 25.1 % (15-50)
[2023-07-28] VITALS (95 sets, daily range): BP systolic 99–155; BP diastolic 50–78; PULSE 76–114; RESP 9–29; TEMP 99.1–99.9; O2SAT 96–100
[2023-07-28] MEDS: LACTULOSE 20Gm/30ML SOLN PO SCH ×4 (00:13→17:48)
[2023-07-28] MEDS: GABAPENTIN 100 MG CAP PO SCH ×4 (00:13→22:14)
[2023-07-28] MEDS: HEPARIN SODIUM (PORCINE) 5000 UNITS/ML 1ML VIAL SC SCH ×3 (00:14→22:13)
[2023-07-28] MEDS: InsuLIN REG 1unit/0.01ml Soln (100units/ml) SC SCH ×5 (00:14→22:14)
[2023-07-28] MEDS: PROPOFOL 100 ML IV SCH (04:33)
[2023-07-28] MEDS: metroNIDAZOLE 500MG/100ML 100 ML IV SCH ×3 (04:43→17:48)
[2023-07-28 06:13] LABS: Eosinophils # (auto) 0.2 10 ^3/uL (0-0.8); Hemoglobin 7.3 g/dL (12.2-16.2); Lymphocytes # (auto) 0.8 10 ^3/uL (0.4-5.4); Monocytes # (auto) 0.6 10 ^3/uL (0-1.3); Monocytes % (auto) 5.2 % (0.0-12.0); Neutrophils # (auto) 9.1 10 ^3/uL (1.6-8.6)
[2023-07-28 06:16] LABS: Basophils # (auto) 0 10 ^3/uL (0-0.2); Basophils % (auto) 0.4 % (0.0-2.0); Eosinophils % (auto) 2.3 % (0.0-7.0); Hematocrit 22.4 % (36.0-46.0); Lymphocytes % (auto) 7.7 % (10.0-50.0); Mean Corpuscular Hemoglobin 29.5 pg (28.0-32.0); Mean Corpuscular Hgb Conc. 32.6 g/dL (32.0-36.0); Mean Corpuscular Volume 90.6 fL (80.0-100.0); Neutrophils % (auto) 84.4 % (37.0-80.0); Red Blood Cells 2.48 10^6/uL (4.0-5.20); Red Cell Distribution Width 15.1 % (11.8-14.3); White Blood Cell 10.8 10^3/uL (4.4-10.8)
[2023-07-28 06:25] LABS: Anion Gap 22 (5-15); Carbon Dioxide 22 mmol/L (20-30); Chloride 93 mmol/L (98-107); Potassium 3.6 mmol/L (3.5-5.1); Sodium 137 mmol/L (136-145)
[2023-07-28 06:26] LABS: Calcium 9.1 mg/dL (8.7-10.4)
[2023-07-28 06:31] LABS: BUN/Creatinine Ratio 10.8 (10.0-20.0); Glucose 173 mg/dL (74-106)
[2023-07-28] MEDS: FUROSEMIDE 40 MG/4 ML VIAL IV SCH ×2 (06:46→17:49)
[2023-07-28] MEDS: ACCU-CHEK COMFORT CURVE STRIP VI SCH ×4 (06:47→22:15)
[2023-07-28 06:58] LABS: Blood Urea Nitrogen 72 mg/dL (9-23)
[2023-07-28] MEDS: MIDAZOLAM DRIP 50 mg/50mL 50 ML IV SCH (07:30)
[2023-07-28] MEDS: NOREPINEPHRINE 8 MG/250ML KIT 250 ML IV SCH (07:30)
[2023-07-28] MEDS: CALCIUM ACETATE 667 MG CAP PO SCH ×3 (07:47→16:50)
[2023-07-28] MEDS: SEVELAMER 800 MG TAB PO SCH ×3 (07:48→16:52)
[2023-07-28] MEDS: METOPROLOL TARTRATE 25 MG TAB PO SCH ×2 (07:49→22:14)
[2023-07-28] MEDS: PANTOPRAZOLE 40 MG/10 ML VIAL INJ IV SCH (07:59)
[2023-07-28] MEDS: ASPirin 81 mg TAB PO SCH (07:59)
[2023-07-28] MEDS: cefTRIAXone 1GM/50ML D5W 50 ML IV SCH (08:00)
[2023-07-28 09:34] LABS: Base Excess -0.8 mmol/L (-2.0-2.0)
[2023-07-28] MEDS: FERROUS SULFATE 300 MG/5 ML ORAL LIQ GT SCH (22:14)
[2023-07-29] VITALS (109 sets, daily range): BP systolic 95–172; BP diastolic 2–85; PULSE 66–117; RESP 14–29; TEMP 97.4–100; O2SAT 93–100
[2023-07-29] MEDS: metroNIDAZOLE 500MG/100ML 100 ML IV SCH ×3 (02:44→18:44)
[2023-07-29] MEDS: LACTULOSE 20Gm/30ML SOLN PO SCH ×4 (05:56→18:08)
[2023-07-29] MEDS: FUROSEMIDE 40 MG/4 ML VIAL IV SCH ×2 (06:00→18:19)
[2023-07-29] MEDS: GABAPENTIN 100 MG CAP PO SCH ×3 (06:00→21:54)
[2023-07-29] MEDS: ACCU-CHEK COMFORT CURVE STRIP VI SCH ×4 (06:00→22:16)
[2023-07-29] MEDS: InsuLIN REG 1unit/0.01ml Soln (100units/ml) SC SCH ×4 (06:08→22:15)
[2023-07-29 06:53] LABS: Base Excess -4.3 mmol/L (-2.0-2.0)
[2023-07-29] MEDS ORDERED: SODIUM CHL 0.9% 1000 ML BAG XX ONE (07:00)
[2023-07-29] MEDS: NOREPINEPHRINE 8 MG/250ML KIT 250 ML IV SCH (07:30)
[2023-07-29] MEDS: MIDAZOLAM DRIP 50 mg/50mL 50 ML IV SCH (07:30)
[2023-07-29] MEDS: PROPOFOL 100 ML IV SCH (07:30)
[2023-07-29] MEDS: CALCIUM ACETATE 667 MG CAP PO SCH ×3 (08:00→18:00)
[2023-07-29] MEDS: SEVELAMER 800 MG TAB PO SCH ×3 (08:00→18:00)
[2023-07-29] MEDS: HEPARIN SODIUM (PORCINE) 5000 UNITS/ML 1ML VIAL SC SCH ×2 (10:00→21:56)
[2023-07-29] MEDS: FERROUS SULFATE 300 MG/5 ML ORAL LIQ GT SCH ×2 (10:00→21:53)
[2023-07-29] MEDS: METOPROLOL TARTRATE 25 MG TAB PO SCH ×2 (10:00→21:54)
[2023-07-29 11:19] LABS: Folate (Folic Acid) > 24.00 ng/mL (>5.38)
[2023-07-29] MEDS ORDERED: ALBUMIN 25% 100 ML IV ONE ×4 (11:45→12:45)
[2023-07-29 12:34] LABS: INR 1.05 (0.9-1.15); Partial Thromboplastin Time 27.5 SEC (24.5-34.5)
[2023-07-29] MEDS: cefTRIAXone 1GM/50ML D5W 50 ML IV SCH (17:46)
[2023-07-29] MEDS: ASPirin 81 mg TAB PO SCH (17:51)
[2023-07-29] MEDS: PANTOPRAZOLE 40 MG/10 ML VIAL INJ IV SCH (17:51)
[2023-07-29] MEDS ORDERED: EPOETIN ALFA-EPBX 10,000 UNIT/1ML VIAL SC ONE (21:00)
[2023-07-30] VITALS (104 sets, daily range): BP systolic 75–170; BP diastolic 27–85; PULSE 84–106; RESP 13–25; TEMP 98.4–100.2; O2SAT 85–100
[2023-07-30] MEDS: LACTULOSE 20Gm/30ML SOLN PO SCH ×5 (00:05→23:51)
[2023-07-30] MEDS: metroNIDAZOLE 500MG/100ML 100 ML IV SCH ×3 (02:00→17:43)
[2023-07-30] MEDS: GABAPENTIN 100 MG CAP PO SCH ×3 (05:33→21:32)
[2023-07-30] MEDS: FUROSEMIDE 40 MG/4 ML VIAL IV SCH ×2 (05:33→17:43)
[2023-07-30 05:59] LABS: Hematocrit 21.3 % (36.0-46.0); Hemoglobin 7.1 g/dL (12.2-16.2); Mean Corpuscular Hemoglobin 30.3 pg (28.0-32.0); Mean Corpuscular Hgb Conc. 33.1 g/dL (32.0-36.0); Mean Corpuscular Volume 91.5 fL (80.0-100.0); Red Blood Cells 2.33 10^6/uL (4.0-5.20); Red Cell Distribution Width 14.9 % (11.8-14.3)
[2023-07-30 06:02] LABS: Basophils % (manual) 0 (0.0-2.0); Blast Cells 0; Promyelocytes % 0; Reactive Lymphocytes 0
[2023-07-30 06:15] LABS: Alanine Aminotransferase 41 U/L (7-40); Albumin 4.9 g/dL (3.2-4.8); Alkaline Phosphatase 153 U/L (46-116); Anion Gap 22 (5-15); Aspartate Aminotransferase 42 U/L (13-40); BUN/Creatinine Ratio 10.7 (10.0-20.0); Bilirubin, Total 0.4 mg/dL (0.2-1.0); Calcium 9.7 mg/dL (8.7-10.4); Carbon Dioxide 24 mmol/L (20-30); Chloride 94 mmol/L (98-107); Glucose 147 mg/dL (74-106); Magnesium 2.6 mg/dL (1.6-2.6); Potassium 3.5 mmol/L (3.5-5.1); Sodium 140 mmol/L (136-145); Total Protein 7.8 g/dL (5.7-8.2)
[2023-07-30 06:32] LABS: Blood Urea Nitrogen 53 mg/dL (9-23)
[2023-07-30] MEDS: InsuLIN REG 1unit/0.01ml Soln (100units/ml) SC SCH ×4 (06:34→21:44)
[2023-07-30] MEDS: ACCU-CHEK COMFORT CURVE STRIP VI SCH ×4 (06:34→22:00)
[2023-07-30] MEDS: NOREPINEPHRINE 8 MG/250ML KIT 250 ML IV SCH (07:30)
[2023-07-30] MEDS: MIDAZOLAM DRIP 50 mg/50mL 50 ML IV SCH (07:30)
[2023-07-30] MEDS: CALCIUM ACETATE 667 MG CAP PO SCH ×3 (08:00→17:55)
[2023-07-30] MEDS: SEVELAMER 800 MG TAB PO SCH ×3 (08:00→17:55)
[2023-07-30 08:10] LABS: Band Neutrophils % (manual) 6; Eosinophils % (manual) 3 (0-7); Lymphocytes % (manual) 8 (10.0-50.0); Metamyelocytes % 3; Monocytes % (manual) 6 (0-12); Myelocytes % 2; Platelet Estimate Adequate
[2023-07-30 08:34] LABS: Base Excess 0.7 mmol/L (-2.0-2.0)
[2023-07-30] MEDS: FERROUS SULFATE 300 MG/5 ML ORAL LIQ GT SCH ×2 (09:42→21:32)
[2023-07-30] MEDS: PANTOPRAZOLE 40 MG/10 ML VIAL INJ IV SCH (09:42)
[2023-07-30] MEDS: ASPirin 81 mg TAB PO SCH (09:43)
[2023-07-30] MEDS: cefTRIAXone 1GM/50ML D5W 50 ML IV SCH (09:43)
[2023-07-30] MEDS: METOPROLOL TARTRATE 25 MG TAB PO SCH ×2 (09:44→21:32)
[2023-07-30] MEDS: HEPARIN SODIUM (PORCINE) 5000 UNITS/ML 1ML VIAL SC SCH ×2 (09:50→21:34)
[2023-07-30] MEDS ORDERED: SODIUM CHL 0.9% 1000 ML BAG XX ONE (11:15)
[2023-07-30] MEDS ORDERED: ALBUMIN 25% 50 ML IV ONE (13:15)
[2023-07-30] MEDS ORDERED: ALBUMIN 25% 100 ML IV ONE (15:15)
[2023-07-30] MEDS: ACETAMINOPHEN 650 MG RECT SUPP PR PRN (20:57)
[2023-07-30] MEDS ORDERED: EPOETIN ALFA-EPBX 10,000 UNIT/1ML VIAL SC ONE (21:00)
[2023-07-31] VITALS (106 sets, daily range): BP systolic 69–174; BP diastolic 40–90; PULSE 75–101; RESP 10–26; TEMP 98.2–99.9; O2SAT 97–100
[2023-07-31] MEDS: metroNIDAZOLE 500MG/100ML 100 ML IV SCH ×3 (02:00→17:32)
[2023-07-31 04:03] LABS: Hematocrit 23.3 % (36.0-46.0)
[2023-07-31 04:06] LABS: Hemoglobin 7.5 g/dL (12.2-16.2); Mean Corpuscular Hemoglobin 29.8 pg (28.0-32.0); Mean Corpuscular Hgb Conc. 32.2 g/dL (32.0-36.0); Mean Corpuscular Volume 92.6 fL (80.0-100.0); Red Blood Cells 2.51 10^6/uL (4.0-5.20); Red Cell Distribution Width 14.8 % (11.8-14.3); White Blood Cell 8.9 10^3/uL (4.4-10.8)
[2023-07-31 04:13] LABS: Band Neutrophils % (manual) 0; Basophils % (manual) 0 (0.0-2.0); Blast Cells 0; Metamyelocytes % 0; Promyelocytes % 0; Reactive Lymphocytes 0
[2023-07-31 04:14] LABS: Chloride 97 mmol/L (98-107); Potassium 3.5 mmol/L (3.5-5.1); Sodium 143 mmol/L (136-145)
[2023-07-31 04:15] LABS: Anion Gap 21 (5-15); Carbon Dioxide 25 mmol/L (20-30)
[2023-07-31 04:16] LABS: Calcium 10.8 mg/dL (8.5-10.1)
[2023-07-31 04:20] LABS: Glucose 157 mg/dL (74-106)
[2023-07-31 04:21] LABS: BUN/Creatinine Ratio 10.5 (10.0-20.0); Blood Urea Nitrogen 51 mg/dL (9-23)
[2023-07-31] MEDS: GABAPENTIN 100 MG CAP PO SCH ×3 (05:45→21:38)
[2023-07-31] MEDS: FUROSEMIDE 40 MG/4 ML VIAL IV SCH ×2 (05:46→17:31)
[2023-07-31] MEDS: LACTULOSE 20Gm/30ML SOLN PO SCH ×3 (05:46→17:31)
[2023-07-31] MEDS: InsuLIN REG 1unit/0.01ml Soln (100units/ml) SC SCH ×4 (06:31→21:46)
[2023-07-31] MEDS: ACCU-CHEK COMFORT CURVE STRIP VI SCH ×4 (06:32→21:46)
[2023-07-31] MEDS: NOREPINEPHRINE 8 MG/250ML KIT 250 ML IV SCH (07:30)
[2023-07-31] MEDS: MIDAZOLAM DRIP 50 mg/50mL 50 ML IV SCH (07:30)
[2023-07-31 07:41] LABS: Eosinophils % (manual) 4 (0-7); Lymphocytes % (manual) 10 (10.0-50.0); Monocytes % (manual) 10 (0-12); Myelocytes % 1; Platelet Estimate Adequate
[2023-07-31] MEDS: CALCIUM ACETATE 667 MG CAP PO SCH ×3 (08:00→17:31)
[2023-07-31] MEDS: SEVELAMER 800 MG TAB PO SCH ×3 (08:00→17:31)
[2023-07-31 08:13] LABS: Base Excess -0.3 mmol/L (-2.0-2.0)
[2023-07-31] MEDS: METOPROLOL TARTRATE 25 MG TAB PO SCH ×2 (09:11→21:40)
[2023-07-31] MEDS: cefTRIAXone 1GM/50ML D5W 50 ML IV SCH (09:12)
[2023-07-31] MEDS: PANTOPRAZOLE 40 MG/10 ML VIAL INJ IV SCH (09:18)
[2023-07-31] MEDS: FERROUS SULFATE 300 MG/5 ML ORAL LIQ GT SCH ×2 (09:18→21:38)
[2023-07-31] MEDS: HEPARIN SODIUM (PORCINE) 5000 UNITS/ML 1ML VIAL SC SCH ×2 (09:19→21:39)
[2023-07-31] MEDS: ASPirin 81 mg TAB PO SCH (09:19)
[2023-07-31 12:01] LABS: Magnesium 2.7 mg/dL (1.6-2.6)
[2023-07-31] MEDS ORDERED: DexAMETHasone SOD PHOS 4 MG/1ML SDV INJ IV ONE (13:00)
[2023-08-01] VITALS (92 sets, daily range): BP systolic 71–167; BP diastolic 41–79; PULSE 74–110; RESP 10–25; TEMP 97.7–99; O2SAT 96–100
[2023-08-01] MEDS: ACETAMINOPHEN 650 MG RECT SUPP PR PRN (01:54)
[2023-08-01] MEDS: metroNIDAZOLE 500MG/100ML 100 ML IV SCH ×3 (01:56→17:56)
[2023-08-01] MEDS: FUROSEMIDE 40 MG/4 ML VIAL IV SCH ×2 (05:57→17:55)
[2023-08-01] MEDS: GABAPENTIN 100 MG CAP PO SCH ×3 (05:57→21:24)
[2023-08-01] MEDS: LACTULOSE 20Gm/30ML SOLN PO SCH ×5 (05:58→23:31)
[2023-08-01 06:40] LABS: Alanine Aminotransferase 38 U/L (7-40); Albumin 5.3 g/dL (3.2-4.8); Alkaline Phosphatase 146 U/L (46-116); Anion Gap 23 (5-15); Aspartate Aminotransferase 25 U/L (13-40); BUN/Creatinine Ratio 13.1 (10.0-20.0); Calcium 10.7 mg/dL (8.7-10.4); Carbon Dioxide 22 mmol/L (20-30); Chloride 99 mmol/L (98-107); Glucose 161 mg/dL (74-106); Magnesium 2.9 mg/dL (1.6-2.6); Potassium 3.8 mmol/L (3.5-5.1); Sodium 144 mmol/L (136-145)
[2023-08-01 06:41] LABS: Bilirubin, Total 0.3 mg/dL (0.2-1.0); Total Protein 8.5 g/dL (5.7-8.2)
[2023-08-01] MEDS: ACCU-CHEK COMFORT CURVE STRIP VI SCH ×4 (06:42→21:33)
[2023-08-01] MEDS: InsuLIN REG 1unit/0.01ml Soln (100units/ml) SC SCH ×4 (06:42→21:35)
[2023-08-01 06:47] LABS: Blood Urea Nitrogen 87 mg/dL (9-23)
[2023-08-01] MEDS ORDERED: SODIUM CHL 0.9% 1000 ML BAG XX ONE (07:00)
[2023-08-01 07:05] LABS: Hemoglobin 7.9 g/dL (12.2-16.2); Mean Corpuscular Volume 92.2 fL (80.0-100.0)
[2023-08-01 07:07] LABS: Mean Corpuscular Hemoglobin 29.3 pg (28.0-32.0); Mean Corpuscular Hgb Conc. 31.8 g/dL (32.0-36.0); Red Blood Cells 2.71 10^6/uL (4.0-5.20); Red Cell Distribution Width 15.2 % (11.8-14.3); White Blood Cell 10.7 10^3/uL (4.4-10.8)
[2023-08-01 07:10] LABS: Basophils % (manual) 0 (0.0-2.0); Blast Cells 0; Eosinophils % (manual) 0 (0-7); Metamyelocytes % 0; Myelocytes % 0; Promyelocytes % 0; Reactive Lymphocytes 0
[2023-08-01] MEDS: NOREPINEPHRINE 8 MG/250ML KIT 250 ML IV SCH ×2 (07:30→10:50)
[2023-08-01] MEDS: MIDAZOLAM DRIP 50 mg/50mL 50 ML IV SCH (07:30)
[2023-08-01 07:34] LABS: Band Neutrophils % (manual) 2; Lymphocytes % (manual) 4 (10.0-50.0); Monocytes % (manual) 8 (0-12); Platelet Estimate Adequate; RBC Morphology Normal
[2023-08-01 07:59] LABS: Base Excess -2.7 mmol/L (-2.0-2.0)
[2023-08-01] MEDS: SEVELAMER 800 MG TAB PO SCH ×3 (08:00→17:48)
[2023-08-01] MEDS: CALCIUM ACETATE 667 MG CAP PO SCH ×3 (08:00→17:48)
[2023-08-01] MEDS: METOPROLOL TARTRATE 25 MG TAB PO SCH ×2 (10:00→21:23)
[2023-08-01] MEDS: PANTOPRAZOLE 40 MG/10 ML VIAL INJ IV SCH (11:31)
[2023-08-01] MEDS: ASPirin 81 mg TAB PO SCH (11:31)
[2023-08-01] MEDS: FERROUS SULFATE 300 MG/5 ML ORAL LIQ GT SCH ×2 (11:31→21:22)
[2023-08-01] MEDS: cefTRIAXone 1GM/50ML D5W 50 ML IV SCH (11:32)
[2023-08-01] MEDS: HEPARIN SODIUM (PORCINE) 5000 UNITS/ML 1ML VIAL SC SCH ×2 (11:42→21:21)
[2023-08-01 12:53] LABS: Base Excess -3.1 mmol/L (-2.0-2.0)
[2023-08-01] MEDS ORDERED: EPINEPHrine HCL 0.5 ML NEB NEB ONE (15:15)
[2023-08-01] MEDS ORDERED: EPINEPHrine HCL 0.5 ML NEB ONE (15:22)
[2023-08-01] MEDS ORDERED: DexAMETHasone SOD PHOS 10MG/1ML VIAL INJ IV ONE (16:00)
[2023-08-01] MEDS: MORPHINE SULFATE INJ 2 MG/ml SYRG IV PRN (18:36)
[2023-08-01 18:58] LABS: Base Excess -4.4 mmol/L (-2.0-2.0)
[2023-08-01] MEDS: ALBUTEROL SULF 2.5 MG/0.5ML(0.5%) NEB SOLN NEB SCH ×2 (19:34→22:18)
[2023-08-01] MEDS: IPRATROPIUM BROM 0.5 MG/2.5ML INH SOL NEB SCH ×2 (19:35→22:18)
[2023-08-01] MEDS ORDERED: EPOETIN ALFA-EPBX 10,000 UNIT/1ML VIAL SC ONE (21:00)
[2023-08-02] VITALS (37 sets, daily range): BP systolic 95–185; BP diastolic 43–88; PULSE 78–106; RESP 10–20; TEMP 97.6–98.8; O2SAT 91–100
[2023-08-02] MEDS: IPRATROPIUM BROM 0.5 MG/2.5ML INH SOL NEB SCH ×6 (02:27→22:06)
[2023-08-02] MEDS: ALBUTEROL SULF 2.5 MG/0.5ML(0.5%) NEB SOLN NEB SCH ×6 (02:27→22:06)
[2023-08-02 05:21] LABS: Hemoglobin 7.7 g/dL (12.2-16.2); Mean Corpuscular Hemoglobin 29.7 pg (28.0-32.0); Mean Corpuscular Hgb Conc. 31.9 g/dL (32.0-36.0); Mean Corpuscular Volume 93.1 fL (80.0-100.0); Red Blood Cells 2.58 10^6/uL (4.0-5.20); White Blood Cell 12.4 10^3/uL (4.4-10.8)
[2023-08-02 05:27] LABS: Alanine Aminotransferase 35 U/L (7-40); Alkaline Phosphatase 148 U/L (46-116); Anion Gap 23 (5-15); BUN/Creatinine Ratio 11.2 (10.0-20.0); Carbon Dioxide 21 mmol/L (20-30); Chloride 96 mmol/L (98-107); Glucose 270 mg/dL (74-106); Magnesium 2.5 mg/dL (1.6-2.6); Sodium 140 mmol/L (136-145)
[2023-08-02 05:28] LABS: Aspartate Aminotransferase 21 U/L (13-40); Band Neutrophils % (manual) 0; Basophils % (manual) 0 (0.0-2.0); Bilirubin, Total 0.3 mg/dL (0.2-1.0); Blast Cells 0; Eosinophils % (manual) 0 (0-7); Metamyelocytes % 0; Promyelocytes % 0; Reactive Lymphocytes 0; Total Protein 8.2 g/dL (5.7-8.2)
[2023-08-02 05:33] LABS: Blood Urea Nitrogen 59 mg/dL (9-23)
[2023-08-02] MEDS: metroNIDAZOLE 500MG/100ML 100 ML IV SCH ×3 (05:48→18:13)
[2023-08-02] MEDS: FUROSEMIDE 40 MG/4 ML VIAL IV SCH ×2 (05:48→18:13)
[2023-08-02] MEDS: LACTULOSE 20Gm/30ML SOLN PO SCH ×3 (05:49→18:00)
[2023-08-02] MEDS: GABAPENTIN 100 MG CAP PO SCH ×3 (05:49→21:50)
[2023-08-02 06:19] LABS: Lymphocytes % (manual) 9 (10.0-50.0); Monocytes % (manual) 5 (0-12); Myelocytes % 2; Platelet Estimate Adequate
[2023-08-02] MEDS: ACCU-CHEK COMFORT CURVE STRIP VI SCH ×4 (06:33→21:50)
[2023-08-02] MEDS: InsuLIN REG 1unit/0.01ml Soln (100units/ml) SC SCH ×4 (06:34→21:57)
[2023-08-02] MEDS: MIDAZOLAM DRIP 50 mg/50mL 50 ML IV SCH (07:30)
[2023-08-02] MEDS: CALCIUM ACETATE 667 MG CAP PO SCH ×3 (08:00→18:00)
[2023-08-02] MEDS: SEVELAMER 800 MG TAB PO SCH ×3 (08:00→18:00)
[2023-08-02] MEDS: MORPHINE SULFATE INJ 2 MG/ml SYRG IV PRN (08:28)
[2023-08-02] MEDS ORDERED: MORPHINE SULFATE INJ 2 MG/ml SYRG IV PRN (09:00)
[2023-08-02] MEDS ORDERED: NITROGLYCERIN 0.4 MG SL TAB SL PRN (09:00)
[2023-08-02] MEDS: ASPirin 81 mg TAB PO SCH (09:29)
[2023-08-02] MEDS: FERROUS SULFATE 300 MG/5 ML ORAL LIQ GT SCH ×2 (09:29→21:49)
[2023-08-02] MEDS: METOPROLOL TARTRATE 25 MG TAB PO SCH ×2 (09:30→21:49)
[2023-08-02] MEDS: PANTOPRAZOLE 40 MG/10 ML VIAL INJ IV SCH (09:42)
[2023-08-02] MEDS: cefTRIAXone 1GM/50ML D5W 50 ML IV SCH (09:43)
[2023-08-02] MEDS: DexAMETHasone SOD PHOS 10MG/1ML VIAL INJ IV SCH (09:43)
[2023-08-02] MEDS: HEPARIN SODIUM (PORCINE) 5000 UNITS/ML 1ML VIAL SC SCH ×2 (09:46→21:48)
[2023-08-02] MEDS: ACETAMINOPHEN 650 MG RECT SUPP PR PRN (11:46)
[2023-08-03] VITALS (48 sets, daily range): BP systolic 79–182; BP diastolic 40–95; PULSE 63–113; RESP 9–24; TEMP 97.5–98.8; O2SAT 87–100
[2023-08-03] MEDS: IPRATROPIUM BROM 0.5 MG/2.5ML INH SOL NEB SCH ×6 (01:39→22:07)
[2023-08-03] MEDS: ALBUTEROL SULF 2.5 MG/0.5ML(0.5%) NEB SOLN NEB SCH ×6 (01:39→22:07)
[2023-08-03] MEDS: metroNIDAZOLE 500MG/100ML 100 ML IV SCH ×2 (01:56→10:31)
[2023-08-03] MEDS: LACTULOSE 20Gm/30ML SOLN PO SCH ×5 (05:49→23:21)
[2023-08-03] MEDS: GABAPENTIN 100 MG CAP PO SCH ×3 (05:49→21:54)
[2023-08-03] MEDS: FUROSEMIDE 40 MG/4 ML VIAL IV SCH ×2 (05:49→18:07)
[2023-08-03] MEDS: ACCU-CHEK COMFORT CURVE STRIP VI SCH ×4 (06:13→21:56)
[2023-08-03] MEDS: InsuLIN REG 1unit/0.01ml Soln (100units/ml) SC SCH ×4 (06:22→22:00)
[2023-08-03] MEDS ORDERED: SODIUM CHL 0.9% 1000 ML BAG XX ONE (07:00)
[2023-08-03] MEDS: NOREPINEPHRINE 8 MG/250ML KIT 250 ML IV SCH (07:30)
[2023-08-03] MEDS: MIDAZOLAM DRIP 50 mg/50mL 50 ML IV SCH (07:30)
[2023-08-03] MEDS: SEVELAMER 800 MG TAB PO SCH ×3 (08:00→18:00)
[2023-08-03] MEDS: CALCIUM ACETATE 667 MG CAP PO SCH ×3 (08:00→18:00)
[2023-08-03] MEDS: ASPirin 81 mg TAB PO SCH (10:00)
[2023-08-03] MEDS: METOPROLOL TARTRATE 25 MG TAB PO SCH ×2 (10:00→21:54)
[2023-08-03] MEDS: FERROUS SULFATE 300 MG/5 ML ORAL LIQ GT SCH ×2 (10:00→21:53)
[2023-08-03] MEDS: cefTRIAXone 1GM/50ML D5W 50 ML IV SCH (10:31)
[2023-08-03] MEDS: DexAMETHasone SOD PHOS 10MG/1ML VIAL INJ IV SCH (10:32)
[2023-08-03] MEDS: PANTOPRAZOLE 40 MG/10 ML VIAL INJ IV SCH (10:32)
[2023-08-03] MEDS: HEPARIN SODIUM (PORCINE) 5000 UNITS/ML 1ML VIAL SC SCH ×2 (10:32→21:56)
[2023-08-03] MEDS ORDERED: AZITHROMYCIN 500MG/ 250ML 250 ML IV ONE (12:00)
[2023-08-03] MEDS ORDERED: EPOETIN ALFA-EPBX 10,000 UNIT/1ML VIAL SC ONE (21:00)
[2023-08-04] VITALS (116 sets, daily range): BP systolic 75–150; BP diastolic 39–75; PULSE 78–105; RESP 10–22; TEMP 97.9–98.2; O2SAT 86–100
[2023-08-04] MEDS: IPRATROPIUM BROM 0.5 MG/2.5ML INH SOL NEB SCH ×6 (02:03→22:17)
[2023-08-04] MEDS: ALBUTEROL SULF 2.5 MG/0.5ML(0.5%) NEB SOLN NEB SCH ×6 (02:03→22:17)
[2023-08-04 04:24] LABS: Hemoglobin 9.2 g/dL (12.2-16.2); White Blood Cell 19.9 10^3/uL (4.4-10.8)
[2023-08-04 04:26] LABS: Hematocrit 28.9 % (36.0-46.0); Mean Corpuscular Hemoglobin 29.4 pg (28.0-32.0); Mean Corpuscular Hgb Conc. 31.9 g/dL (32.0-36.0); Mean Corpuscular Volume 91.9 fL (80.0-100.0); Red Blood Cells 3.14 10^6/uL (4.0-5.20); Red Cell Distribution Width 15.2 % (11.8-14.3)
[2023-08-04 04:36] LABS: Band Neutrophils % (manual) 0; Basophils % (manual) 0 (0.0-2.0); Blast Cells 0; Eosinophils % (manual) 0 (0-7); Promyelocytes % 0; Reactive Lymphocytes 0
[2023-08-04 04:44] LABS: Alanine Aminotransferase 27 U/L (7-40); Albumin 5.2 g/dL (3.2-4.8); Alkaline Phosphatase 151 U/L (46-116); Anion Gap 22 (5-15); Aspartate Aminotransferase 16 U/L (13-40); BUN/Creatinine Ratio 11.9 (10.0-20.0); Carbon Dioxide 21 mmol/L (20-30); Chloride 95 mmol/L (98-107); Glucose 242 mg/dL (74-106); Magnesium 2.5 mg/dL (1.6-2.6); Sodium 138 mmol/L (136-145)
[2023-08-04 04:45] LABS: Bilirubin, Total 0.3 mg/dL (0.2-1.0); Total Protein 8.8 g/dL (5.7-8.2)
[2023-08-04 04:58] LABS: Lymphocytes % (manual) 12 (10.0-50.0); Metamyelocytes % 1; Monocytes % (manual) 5 (0-12); Myelocytes % 10; Platelet Estimate Increased
[2023-08-04 05:09] LABS: Blood Urea Nitrogen 70 mg/dL (9-23)
[2023-08-04] MEDS: LACTULOSE 20Gm/30ML SOLN PO SCH ×3 (05:59→10:37)
[2023-08-04] MEDS: GABAPENTIN 100 MG CAP PO SCH ×3 (05:59→22:06)
[2023-08-04] MEDS: FUROSEMIDE 40 MG/4 ML VIAL IV SCH ×2 (06:00→17:11)
[2023-08-04] MEDS: InsuLIN REG 1unit/0.01ml Soln (100units/ml) SC SCH ×5 (06:02→22:08)
[2023-08-04] MEDS: ACCU-CHEK COMFORT CURVE STRIP VI SCH ×5 (06:03→22:07)
[2023-08-04] MEDS: SEVELAMER 800 MG TAB PO SCH ×3 (07:02→10:37)
[2023-08-04] MEDS: FERROUS SULFATE 300 MG/5 ML ORAL LIQ GT SCH ×2 (07:02→22:05)
[2023-08-04] MEDS: CALCIUM ACETATE 667 MG CAP PO SCH ×3 (07:02→10:37)
[2023-08-04] MEDS: ASPirin 81 mg TAB PO SCH (07:03)
[2023-08-04] MEDS: METOPROLOL TARTRATE 25 MG TAB PO SCH ×2 (07:08→22:00)
[2023-08-04] MEDS: NOREPINEPHRINE 8 MG/250ML KIT 250 ML IV SCH ×2 (07:30→14:30)
[2023-08-04] MEDS: PANTOPRAZOLE 40 MG/10 ML VIAL INJ IV SCH (07:32)
[2023-08-04] MEDS: DexAMETHasone SOD PHOS 10MG/1ML VIAL INJ IV SCH (07:34)
[2023-08-04] MEDS: cefTRIAXone 1GM/50ML D5W 50 ML IV SCH (07:34)
[2023-08-04] MEDS: HEPARIN SODIUM (PORCINE) 5000 UNITS/ML 1ML VIAL SC SCH ×2 (07:34→22:06)
[2023-08-04] MEDS ORDERED: AZITHROMYCIN 500MG/ 250ML 250 ML IV SCH (10:00)
[2023-08-04] MEDS ORDERED: NOREPINEPHRINE 8 MG/250ML KIT 250 ML IV SCH (14:30)
[2023-08-04] MEDS ORDERED: INSULIN LANTUS (GLARGINE) 1 /0.01ml (100units/ml) SC ONE (16:45)
[2023-08-04] MEDS ORDERED: DEXTROSE (50%) 50ML SYRG IV PRN (16:45)
[2023-08-05] VITALS (58 sets, daily range): BP systolic 81–146; BP diastolic 36–71; PULSE 71–95; RESP 8–19; TEMP 97.5–98.2; O2SAT 93–100
[2023-08-05] MEDS: ALBUTEROL SULF 2.5 MG/0.5ML(0.5%) NEB SOLN NEB SCH ×6 (02:14→22:25)
[2023-08-05] MEDS: IPRATROPIUM BROM 0.5 MG/2.5ML INH SOL NEB SCH ×6 (02:14→22:25)
[2023-08-05] MEDS: FUROSEMIDE 40 MG/4 ML VIAL IV SCH ×2 (06:09→18:07)
[2023-08-05] MEDS: GABAPENTIN 100 MG CAP PO SCH ×3 (06:09→22:18)
[2023-08-05] MEDS: LACTULOSE 20Gm/30ML SOLN PO SCH ×4 (06:09→18:08)
[2023-08-05] MEDS: ACCU-CHEK COMFORT CURVE STRIP VI SCH ×4 (06:09→22:17)
[2023-08-05] MEDS: InsuLIN REG 1unit/0.01ml Soln (100units/ml) SC SCH ×4 (06:11→22:19)
[2023-08-05 06:13] LABS: Hematocrit 27.8 % (36.0-46.0); Hemoglobin 8.8 g/dL (12.2-16.2); Mean Corpuscular Hemoglobin 29.2 pg (28.0-32.0); Mean Corpuscular Hgb Conc. 31.7 g/dL (32.0-36.0); Mean Corpuscular Volume 92.1 fL (80.0-100.0); Red Blood Cells 3.01 10^6/uL (4.0-5.20); Red Cell Distribution Width 15.6 % (11.8-14.3); White Blood Cell 15.7 10^3/uL (4.4-10.8)
[2023-08-05 06:23] LABS: Basophils % (manual) 0 (0.0-2.0); Blast Cells 0; Chloride 93 mmol/L (98-107); Eosinophils % (manual) 0 (0-7); Metamyelocytes % 0; Myelocytes % 0; Potassium 4.5 mmol/L (3.5-5.1); Promyelocytes % 0; Reactive Lymphocytes 0; Sodium 136 mmol/L (136-145)
[2023-08-05 06:24] LABS: Anion Gap 20 (5-15); Carbon Dioxide 23 mmol/L (20-30)
[2023-08-05 06:25] LABS: Calcium 9.6 mg/dL (8.7-10.4)
[2023-08-05 06:29] LABS: Glucose 317 mg/dL (74-106)
[2023-08-05 06:37] LABS: Blood Urea Nitrogen 106 mg/dL (9-23)
[2023-08-05 07:55] LABS: Band Neutrophils % (manual) 1; Lymphocytes % (manual) 11 (10.0-50.0); Monocytes % (manual) 8 (0-12)
[2023-08-05 07:56] LABS: Anisocytosis Slight; Hypochromia Slight; Platelet Estimate Adequate; Polychromasia Slight
[2023-08-05] MEDS: SEVELAMER 800 MG TAB PO SCH ×3 (08:00→18:00)
[2023-08-05] MEDS: CALCIUM ACETATE 667 MG CAP PO SCH ×3 (08:00→18:06)
[2023-08-05] MEDS: cefTRIAXone 1GM/50ML D5W 50 ML IV SCH (09:00)
[2023-08-05] MEDS ORDERED: HEPARIN SODIUM (PORCINE) 5000 UNITS/ML 1ML VIAL ONE ×2 (10:44→10:45)
[2023-08-05] MEDS: PANTOPRAZOLE 40 MG/10 ML VIAL INJ IV SCH (10:55)
[2023-08-05] MEDS: FERROUS SULFATE 300 MG/5 ML ORAL LIQ GT SCH ×2 (10:55→22:27)
[2023-08-05] MEDS: ASPirin 81 mg TAB PO SCH (10:56)
[2023-08-05] MEDS: HEPARIN SODIUM (PORCINE) 5000 UNITS/ML 1ML VIAL SC SCH ×2 (10:57→22:27)
[2023-08-05] MEDS: METOPROLOL TARTRATE 25 MG TAB PO SCH ×2 (10:58→22:00)
[2023-08-05] MEDS ORDERED: EPINEPHrine HCL 0.5 ML NEB ONE (11:11)
[2023-08-05] MEDS ORDERED: EPINEPHrine HCL 0.5 ML NEB NEB ONE (11:15)
[2023-08-05] MEDS: NOREPINEPHRINE 8 MG/250ML KIT 250 ML IV SCH (14:19)
[2023-08-06] VITALS (54 sets, daily range): BP systolic 86–151; BP diastolic 46–71; PULSE 81–105; RESP 9–20; TEMP 97.7–99.1; O2SAT 93–100
[2023-08-06] MEDS: IPRATROPIUM BROM 0.5 MG/2.5ML INH SOL NEB SCH ×6 (02:22→22:09)
[2023-08-06] MEDS: ALBUTEROL SULF 2.5 MG/0.5ML(0.5%) NEB SOLN NEB SCH ×6 (02:22→22:08)
[2023-08-06 05:12] LABS: Basophils # (auto) 0.1 10 ^3/uL (0-0.2); Basophils % (auto) 0.4 % (0.0-2.0); Eosinophils # (auto) 0.1 10 ^3/uL (0-0.8); Eosinophils % (auto) 0.6 % (0.0-7.0); Hematocrit 28.3 % (36.0-46.0); Hemoglobin 8.8 g/dL (12.2-16.2); Lymphocytes # (auto) 1.5 10 ^3/uL (0.4-5.4); Lymphocytes % (auto) 9.3 % (10.0-50.0); Mean Corpuscular Hgb Conc. 31.1 g/dL (32.0-36.0); Mean Corpuscular Volume 93.2 fL (80.0-100.0); Monocytes # (auto) 0.6 10 ^3/uL (0-1.3); Monocytes % (auto) 3.8 % (0.0-12.0); Neutrophils # (auto) 13.6 10 ^3/uL (1.6-8.6); Neutrophils % (auto) 85.9 % (37.0-80.0); Nucleated Red Blood Cells % 0.1 %; Red Blood Cells 3.04 10^6/uL (4.0-5.20); Red Cell Distribution Width 15.7 % (11.8-14.3); White Blood Cell 15.8 10^3/uL (4.4-10.8)
[2023-08-06 05:28] LABS: Anion Gap 22 (5-15); Carbon Dioxide 22 mmol/L (20-30); Chloride 94 mmol/L (98-107); Potassium 4.9 mmol/L (3.5-5.1); Sodium 138 mmol/L (136-145)
[2023-08-06 05:29] LABS: Calcium 9.1 mg/dL (8.5-10.1)
[2023-08-06 05:34] LABS: BUN/Creatinine Ratio 12.8 (10.0-20.0); Glucose 281 mg/dL (74-106)
[2023-08-06 05:38] LABS: Blood Urea Nitrogen 118 mg/dL (9-23)
[2023-08-06] MEDS: GABAPENTIN 100 MG CAP PO SCH ×3 (06:00→21:18)
[2023-08-06] MEDS: ACCU-CHEK COMFORT CURVE STRIP VI SCH ×4 (06:57→21:41)
[2023-08-06] MEDS: FUROSEMIDE 40 MG/4 ML VIAL IV SCH ×2 (06:57→17:46)
[2023-08-06] MEDS ORDERED: SODIUM CHL 0.9% 1000 ML BAG XX ONE (07:00)
[2023-08-06] MEDS: InsuLIN REG 1unit/0.01ml Soln (100units/ml) SC SCH ×4 (07:00→22:09)
[2023-08-06] MEDS: SEVELAMER 800 MG TAB PO SCH ×3 (08:00→17:56)
[2023-08-06] MEDS: CALCIUM ACETATE 667 MG CAP PO SCH ×3 (08:29→17:39)
[2023-08-06] MEDS: METOPROLOL TARTRATE 25 MG TAB PO SCH ×2 (10:00→21:18)
[2023-08-06] MEDS ORDERED: HEPARIN SODIUM (PORCINE) 5000 UNITS/ML 1ML VIAL ONE (11:21)
[2023-08-06] MEDS: NOREPINEPHRINE 8 MG/250ML KIT 250 ML IV SCH (11:50)
[2023-08-06] MEDS: PANTOPRAZOLE 40 MG/10 ML VIAL INJ IV SCH (11:55)
[2023-08-06] MEDS: HEPARIN SODIUM (PORCINE) 5000 UNITS/ML 1ML VIAL SC SCH ×2 (11:56→21:19)
[2023-08-06] MEDS: ASPirin 81 mg TAB PO SCH (11:57)
[2023-08-06] MEDS: LACTULOSE 20Gm/30ML SOLN PO SCH ×3 (12:00→18:00)
[2023-08-06] MEDS: FERROUS SULFATE 300 MG/5 ML ORAL LIQ GT SCH ×2 (12:02→21:18)
[2023-08-07] VITALS (42 sets, daily range): BP systolic 84–128; BP diastolic 41–68; PULSE 86–105; RESP 9–19; TEMP 98.2–98.6; O2SAT 94–100
[2023-08-07] MEDS: ALBUTEROL SULF 2.5 MG/0.5ML(0.5%) NEB SOLN NEB SCH ×7 (02:19→23:35)
[2023-08-07] MEDS: IPRATROPIUM BROM 0.5 MG/2.5ML INH SOL NEB SCH ×6 (02:20→23:35)
[2023-08-07] MEDS: LACTULOSE 20Gm/30ML SOLN PO SCH ×5 (05:57→23:51)
[2023-08-07] MEDS: FUROSEMIDE 40 MG/4 ML VIAL IV SCH ×2 (05:57→16:28)
[2023-08-07] MEDS: GABAPENTIN 100 MG CAP PO SCH ×3 (05:57→21:52)
[2023-08-07] MEDS: ACCU-CHEK COMFORT CURVE STRIP VI SCH ×4 (05:58→21:54)
[2023-08-07] MEDS: InsuLIN REG 1unit/0.01ml Soln (100units/ml) SC SCH ×4 (05:59→22:04)
[2023-08-07] MEDS: METOPROLOL TARTRATE 25 MG TAB PO SCH ×2 (07:54→21:53)
[2023-08-07] MEDS: CALCIUM ACETATE 667 MG CAP PO SCH ×3 (08:51→16:27)
[2023-08-07] MEDS: SEVELAMER 800 MG TAB PO SCH ×3 (08:51→16:28)
[2023-08-07] MEDS: ASPirin 81 mg TAB PO SCH (08:52)
[2023-08-07] MEDS: PANTOPRAZOLE 40 MG/10 ML VIAL INJ IV SCH (08:52)
[2023-08-07] MEDS: FERROUS SULFATE 300 MG/5 ML ORAL LIQ GT SCH ×2 (08:53→21:54)
[2023-08-07] MEDS: MORPHINE SULFATE INJ 2 MG/ml SYRG IV PRN (08:59)
[2023-08-07] MEDS: HEPARIN SODIUM (PORCINE) 5000 UNITS/ML 1ML VIAL SC SCH ×2 (09:14→21:53)
[2023-08-07 12:37] LABS: Alanine Aminotransferase 15 U/L (7-40); Albumin 4.1 g/dL (3.2-4.8); Alkaline Phosphatase 114 U/L (46-116); Anion Gap 15 (5-15); Aspartate Aminotransferase 16 U/L (13-40); BUN/Creatinine Ratio 9.6 (10.0-20.0); Bilirubin, Total 0.3 mg/dL (0.2-1.0); Carbon Dioxide 23 mmol/L (20-30); Chloride 94 mmol/L (98-107); Potassium 4.5 mmol/L (3.5-5.1)
[2023-08-07 12:38] LABS: Total Protein 6.8 g/dL (5.7-8.2)
[2023-08-07 12:40] LABS: Blood Urea Nitrogen 71 mg/dL (9-23); Sodium 132 mmol/L (136-145)
[2023-08-07 12:42] LABS: Glucose 448 mg/dL (74-106)
[2023-08-07] MEDS: NOREPINEPHRINE 8 MG/250ML KIT 250 ML IV SCH (14:30)
[2023-08-07] MEDS: NYSTATIN (MOUTH-THROAT) 500,000 UNITS/5 ML SUSP MT SCH ×2 (14:38→20:17)
[2023-08-07] MEDS: ATORVASTATIN 20 MG TAB PO SCH (21:53)
[2023-08-08] VITALS (38 sets, daily range): BP systolic 84–138; BP diastolic 39–62; PULSE 84–119; RESP 8–20; TEMP 98.1–101; O2SAT 90–100
[2023-08-08] MEDS: NYSTATIN (MOUTH-THROAT) 500,000 UNITS/5 ML SUSP MT SCH ×4 (01:56→21:26)
[2023-08-08] MEDS: IPRATROPIUM BROM 0.5 MG/2.5ML INH SOL NEB SCH ×6 (03:24→22:04)
[2023-08-08] MEDS: ALBUTEROL SULF 2.5 MG/0.5ML(0.5%) NEB SOLN NEB SCH ×6 (03:24→22:04)
[2023-08-08 05:00] LABS: Hematocrit 26.4 % (36.0-46.0); Hemoglobin 8.6 g/dL (12.2-16.2)
[2023-08-08] MEDS: FUROSEMIDE 40 MG/4 ML VIAL IV SCH (06:00)
[2023-08-08] MEDS: ACCU-CHEK COMFORT CURVE STRIP VI SCH ×4 (06:35→22:00)
[2023-08-08] MEDS: LACTULOSE 20Gm/30ML SOLN PO SCH ×4 (06:38→23:18)
[2023-08-08] MEDS: GABAPENTIN 100 MG CAP PO SCH ×3 (06:38→21:28)
[2023-08-08] MEDS: InsuLIN REG 1unit/0.01ml Soln (100units/ml) SC SCH ×4 (06:42→21:37)
[2023-08-08] MEDS ORDERED: SODIUM CHL 0.9% 1000 ML BAG XX ONE (07:00)
[2023-08-08] MEDS: CALCIUM ACETATE 667 MG CAP PO SCH ×3 (08:52→17:42)
[2023-08-08] MEDS: SEVELAMER 800 MG TAB PO SCH ×3 (08:52→17:42)
[2023-08-08] MEDS: METOPROLOL TARTRATE 25 MG TAB PO SCH ×2 (10:00→21:29)
[2023-08-08] MEDS: FERROUS SULFATE 300 MG/5 ML ORAL LIQ GT SCH ×2 (10:04→21:27)
[2023-08-08] MEDS: PANTOPRAZOLE 40 MG/10 ML VIAL INJ IV SCH (10:04)
[2023-08-08] MEDS: ASPirin 81 mg TAB PO SCH (10:04)
[2023-08-08] MEDS: HEPARIN SODIUM (PORCINE) 5000 UNITS/ML 1ML VIAL SC SCH ×2 (10:26→21:38)
[2023-08-08] MEDS ORDERED: DIGOXIN 0.125 MG TAB PO ONE (13:30)
[2023-08-08] MEDS ORDERED: FLUDROCORTISONE ACETATE 0.1 MG TAB PO ONE (13:45)
[2023-08-08] MEDS ORDERED: INSULIN LANTUS (GLARGINE) 1 /0.01ml (100units/ml) SC ONE (13:45)
[2023-08-08] MEDS: NOREPINEPHRINE 8 MG/250ML KIT 250 ML IV SCH (14:30)
[2023-08-08] MEDS: ACETAMINOPHEN 650 MG RECT SUPP PR PRN (16:56)
[2023-08-08 20:03] LABS: Lactic Acid w/Reflex 2.8 mmol/L (0.4-2.0)
[2023-08-08] MEDS ORDERED: EPOETIN ALFA-EPBX 10,000 UNIT/1ML VIAL SC ONE (21:00)
[2023-08-08] MEDS ORDERED: cefTRIAXone 1GM/50ML D5W 50 ML IV ONE (21:15)
[2023-08-08] MEDS ORDERED: VANCOMYCIN PER PHARMACY 0 MG IV SCH (21:15)
[2023-08-08] MEDS ORDERED: VANCOMYCIN 1GM/200ML 200 ML IV ONE (21:15)
[2023-08-08] MEDS: ATORVASTATIN 20 MG TAB PO SCH (21:28)
[2023-08-08] MEDS: INSULIN LANTUS (GLARGINE) 1 /0.01ml (100units/ml) SC SCH (21:38)
[2023-08-09] VITALS (30 sets, daily range): BP systolic 96–136; BP diastolic 37–63; PULSE 82–100; RESP 9–20; TEMP 97.9–98.9; O2SAT 94–100
[2023-08-09] MEDS: IPRATROPIUM BROM 0.5 MG/2.5ML INH SOL NEB SCH ×6 (02:06→21:07)
[2023-08-09] MEDS: ALBUTEROL SULF 2.5 MG/0.5ML(0.5%) NEB SOLN NEB SCH ×6 (02:06→21:07)
[2023-08-09] MEDS: NYSTATIN (MOUTH-THROAT) 500,000 UNITS/5 ML SUSP MT SCH ×4 (03:16→21:54)
[2023-08-09] MEDS: GABAPENTIN 100 MG CAP PO SCH ×3 (06:11→21:55)
[2023-08-09] MEDS: LACTULOSE 20Gm/30ML SOLN PO SCH ×3 (06:11→18:24)
[2023-08-09] MEDS: ACCU-CHEK COMFORT CURVE STRIP VI SCH ×4 (06:14→22:11)
[2023-08-09] MEDS: INSULIN LANTUS (GLARGINE) 1 /0.01ml (100units/ml) SC SCH ×2 (06:15→22:19)
[2023-08-09] MEDS: InsuLIN REG 1unit/0.01ml Soln (100units/ml) SC SCH ×4 (06:16→22:23)
[2023-08-09 06:59] LABS: Basophils # (auto) 0 10 ^3/uL (0-0.2); Monocytes # (auto) 0.5 10 ^3/uL (0-1.3); Red Cell Distribution Width 16.2 % (11.8-14.3)
[2023-08-09 07:03] LABS: Basophils % (auto) 0.5 % (0.0-2.0); Eosinophils # (auto) 0.3 10 ^3/uL (0-0.8); Eosinophils % (auto) 2.7 % (0.0-7.0); Mean Corpuscular Hemoglobin 29.7 pg (28.0-32.0); Mean Corpuscular Hgb Conc. 31.9 g/dL (32.0-36.0); Mean Corpuscular Volume 93.1 fL (80.0-100.0); Monocytes % (auto) 5.6 % (0.0-12.0); Neutrophils # (auto) 7.9 10 ^3/uL (1.6-8.6); Neutrophils % (auto) 81.2 % (37.0-80.0); Nucleated Red Blood Cells % 0.1 %; Red Blood Cells 2.68 10^6/uL (4.0-5.20); White Blood Cell 9.8 10^3/uL (4.4-10.8)
[2023-08-09 07:10] LABS: Alanine Aminotransferase 18 U/L (7-40); Albumin 3.6 g/dL (3.2-4.8); Alkaline Phosphatase 118 U/L (46-116); Anion Gap 10 (5-15); Aspartate Aminotransferase 20 U/L (13-40); BUN/Creatinine Ratio 8.3 (10.0-20.0); Calcium 8.7 mg/dL (8.7-10.4); Carbon Dioxide 25 mmol/L (20-30); Chloride 98 mmol/L (98-107); Glucose 225 mg/dL (74-106); Magnesium 2.1 mg/dL (1.6-2.6); Potassium 4.5 mmol/L (3.5-5.1); Sodium 133 mmol/L (136-145)
[2023-08-09 07:11] LABS: Bilirubin, Total 0.3 mg/dL (0.2-1.0); Total Protein 6.1 g/dL (5.7-8.2)
[2023-08-09 07:14] LABS: Blood Urea Nitrogen 43 mg/dL (9-23)
[2023-08-09] MEDS: SEVELAMER 800 MG TAB PO SCH ×3 (09:29→18:24)
[2023-08-09] MEDS: CALCIUM ACETATE 667 MG CAP PO SCH ×3 (09:29→18:24)
[2023-08-09] MEDS: DIGOXIN 0.125 MG TAB PO SCH (09:29)
[2023-08-09] MEDS: ASPirin 81 mg TAB PO SCH (09:29)
[2023-08-09] MEDS: PANTOPRAZOLE 40 MG/10 ML VIAL INJ IV SCH (09:29)
[2023-08-09] MEDS: cefTRIAXone 1GM/50ML D5W 50 ML IV SCH (09:30)
[2023-08-09] MEDS: FLUDROCORTISONE ACETATE 0.1 MG TAB PO SCH (09:30)
[2023-08-09] MEDS: METOPROLOL TARTRATE 25 MG TAB PO SCH ×2 (09:30→21:57)
[2023-08-09] MEDS: FERROUS SULFATE 300 MG/5 ML ORAL LIQ GT SCH ×2 (09:31→21:54)
[2023-08-09] MEDS: HEPARIN SODIUM (PORCINE) 5000 UNITS/ML 1ML VIAL SC SCH ×2 (09:49→21:56)
[2023-08-09] MEDS ORDERED: VANCOMYCIN 500 MG in D5W 5% 100 ML IV ONE (16:00)
[2023-08-09] MEDS: ATORVASTATIN 20 MG TAB PO SCH (21:55)
[2023-08-10] VITALS (19 sets, daily range): BP systolic 117–135; BP diastolic 54–74; PULSE 81–107; RESP 9–20; TEMP 98.1–98.6; O2SAT 95–100
[2023-08-10] MEDS: LACTULOSE 20Gm/30ML SOLN PO SCH ×4 (00:39→17:01)
[2023-08-10] MEDS: NYSTATIN (MOUTH-THROAT) 500,000 UNITS/5 ML SUSP MT SCH ×4 (00:39→19:45)
[2023-08-10] MEDS: ALBUTEROL SULF 2.5 MG/0.5ML(0.5%) NEB SOLN NEB SCH ×6 (01:12→21:51)
[2023-08-10] MEDS: IPRATROPIUM BROM 0.5 MG/2.5ML INH SOL NEB SCH ×6 (01:12→21:51)
[2023-08-10 05:35] LABS: Basophils # (auto) 0 10 ^3/uL (0-0.2); Basophils % (auto) 0.4 % (0.0-2.0); Eosinophils # (auto) 0.2 10 ^3/uL (0-0.8); Hemoglobin 7.7 g/dL (12.2-16.2); Lymphocytes # (auto) 0.8 10 ^3/uL (0.4-5.4); Monocytes # (auto) 0.5 10 ^3/uL (0-1.3); Neutrophils % (auto) 82.6 % (37.0-80.0); Red Cell Distribution Width 16.1 % (11.8-14.3)
[2023-08-10 05:42] LABS: Eosinophils % (auto) 2.1 % (0.0-7.0); Hematocrit 23.5 % (36.0-46.0); Lymphocytes % (auto) 9.5 % (10.0-50.0); Mean Corpuscular Hemoglobin 30.7 pg (28.0-32.0); Mean Corpuscular Hgb Conc. 32.8 g/dL (32.0-36.0); Mean Corpuscular Volume 93.5 fL (80.0-100.0); Monocytes % (auto) 5.4 % (0.0-12.0); Red Blood Cells 2.52 10^6/uL (4.0-5.20); White Blood Cell 8.5 10^3/uL (4.4-10.8)
[2023-08-10 05:46] LABS: Anion Gap 11 (5-15); Carbon Dioxide 24 mmol/L (20-30); Chloride 97 mmol/L (98-107); Sodium 132 mmol/L (136-145)
[2023-08-10 05:47] LABS: Calcium 8.5 mg/dL (8.7-10.4)
[2023-08-10 05:52] LABS: BUN/Creatinine Ratio 8.3 (10.0-20.0); Blood Urea Nitrogen 52 mg/dL (9-23); Glucose 179 mg/dL (74-106)
[2023-08-10] MEDS: GABAPENTIN 100 MG CAP PO SCH ×3 (06:00→21:58)
[2023-08-10] MEDS: ACCU-CHEK COMFORT CURVE STRIP VI SCH ×4 (06:06→23:48)
[2023-08-10] MEDS: INSULIN LANTUS (GLARGINE) 1 /0.01ml (100units/ml) SC SCH ×2 (06:09→22:00)
[2023-08-10] MEDS: InsuLIN REG 1unit/0.01ml Soln (100units/ml) SC SCH ×4 (06:09→22:00)
[2023-08-10] MEDS ORDERED: SODIUM CHL 0.9% 1000 ML BAG XX ONE (07:00)
[2023-08-10] MEDS: FLUDROCORTISONE ACETATE 0.1 MG TAB PO SCH (10:01)
[2023-08-10] MEDS: CALCIUM ACETATE 667 MG CAP PO SCH ×3 (10:01→17:01)
[2023-08-10] MEDS: SEVELAMER 800 MG TAB PO SCH ×3 (10:01→17:00)
[2023-08-10] MEDS: FERROUS SULFATE 300 MG/5 ML ORAL LIQ GT SCH ×2 (10:01→21:48)
[2023-08-10] MEDS: PANTOPRAZOLE 40 MG/10 ML VIAL INJ IV SCH (10:02)
[2023-08-10] MEDS: ASPirin 81 mg TAB PO SCH (10:02)
[2023-08-10] MEDS: DIGOXIN 0.125 MG TAB PO SCH (10:02)
[2023-08-10] MEDS: cefTRIAXone 1GM/50ML D5W 50 ML IV SCH (10:03)
[2023-08-10] MEDS: METOPROLOL TARTRATE 25 MG TAB PO SCH ×2 (10:06→21:54)
[2023-08-10] MEDS: HEPARIN SODIUM (PORCINE) 5000 UNITS/ML 1ML VIAL SC SCH ×2 (10:09→22:07)
[2023-08-10] MEDS: ATORVASTATIN 20 MG TAB PO SCH (21:48)
[2023-08-11] VITALS (19 sets, daily range): BP systolic 107–121; BP diastolic 42–65; PULSE 95–111; RESP 16–21; TEMP 98–99.4; O2SAT 93–100
[2023-08-11] MEDS: LACTULOSE 20Gm/30ML SOLN PO SCH ×4 (01:02→17:45)
[2023-08-11] MEDS: ALBUTEROL SULF 2.5 MG/0.5ML(0.5%) NEB SOLN NEB SCH ×6 (02:18→23:03)
[2023-08-11] MEDS: IPRATROPIUM BROM 0.5 MG/2.5ML INH SOL NEB SCH ×6 (02:18→23:03)
[2023-08-11] MEDS: GABAPENTIN 100 MG CAP PO SCH ×3 (05:59→21:56)
[2023-08-11] MEDS: InsuLIN REG 1unit/0.01ml Soln (100units/ml) SC SCH ×4 (06:14→22:19)
[2023-08-11] MEDS: INSULIN LANTUS (GLARGINE) 1 /0.01ml (100units/ml) SC SCH ×2 (06:15→22:18)
[2023-08-11] MEDS: ACCU-CHEK COMFORT CURVE STRIP VI SCH ×4 (06:19→22:20)
[2023-08-11] MEDS: SEVELAMER 800 MG TAB PO SCH ×3 (08:24→17:40)
[2023-08-11] MEDS: CALCIUM ACETATE 667 MG CAP PO SCH ×3 (08:24→17:40)
[2023-08-11] MEDS: cefTRIAXone 1GM/50ML D5W 50 ML IV SCH (09:03)
[2023-08-11] MEDS: FERROUS SULFATE 300 MG/5 ML ORAL LIQ GT SCH ×2 (09:20→21:56)
[2023-08-11] MEDS: FLUDROCORTISONE ACETATE 0.1 MG TAB PO SCH (09:34)
[2023-08-11] MEDS: DIGOXIN 0.125 MG TAB PO SCH (09:34)
[2023-08-11] MEDS: ASPirin 81 mg TAB PO SCH (09:35)
[2023-08-11] MEDS: METOPROLOL TARTRATE 25 MG TAB PO SCH ×2 (09:36→22:20)
[2023-08-11] MEDS: HEPARIN SODIUM (PORCINE) 5000 UNITS/ML 1ML VIAL SC SCH ×2 (09:40→22:01)
[2023-08-11] MEDS: PANTOPRAZOLE 40 MG/10 ML VIAL INJ IV SCH (14:13)
[2023-08-11] MEDS ORDERED: VANCOMYCIN 500 MG in D5W 5% 100 ML IV ONE (16:00)
[2023-08-11] MEDS: ATORVASTATIN 20 MG TAB PO SCH (21:56)
[2023-08-12] VITALS (18 sets, daily range): BP systolic 113–157; BP diastolic 49–72; PULSE 71–103; RESP 16–20; TEMP 97.9–99.5; O2SAT 92–100
[2023-08-12] MEDS: LACTULOSE 20Gm/30ML SOLN PO SCH ×3 (00:51→11:30)
[2023-08-12] MEDS: IPRATROPIUM BROM 0.5 MG/2.5ML INH SOL NEB SCH ×6 (03:09→22:08)
[2023-08-12] MEDS: ALBUTEROL SULF 2.5 MG/0.5ML(0.5%) NEB SOLN NEB SCH ×6 (03:09→22:08)
[2023-08-12] MEDS: GABAPENTIN 100 MG CAP PO SCH ×3 (05:50→21:44)
[2023-08-12] MEDS: InsuLIN REG 1unit/0.01ml Soln (100units/ml) SC SCH ×4 (06:17→22:14)
[2023-08-12] MEDS: INSULIN LANTUS (GLARGINE) 1 /0.01ml (100units/ml) SC SCH ×2 (06:18→22:14)
[2023-08-12] MEDS: CALCIUM ACETATE 667 MG CAP PO SCH ×3 (08:18→17:28)
[2023-08-12] MEDS: SEVELAMER 800 MG TAB PO SCH ×3 (08:18→17:28)
[2023-08-12] MEDS: FLUDROCORTISONE ACETATE 0.1 MG TAB PO SCH (10:16)
[2023-08-12] MEDS: ASPirin 81 mg TAB PO SCH (10:17)
[2023-08-12] MEDS: DIGOXIN 0.125 MG TAB PO SCH (10:18)
[2023-08-12] MEDS: METOPROLOL TARTRATE 25 MG TAB PO SCH ×2 (10:18→22:16)
[2023-08-12] MEDS: PANTOPRAZOLE 40 MG/10 ML VIAL INJ IV SCH (10:22)
[2023-08-12] MEDS: FERROUS SULFATE 300 MG/5 ML ORAL LIQ GT SCH ×2 (10:22→21:43)
[2023-08-12] MEDS: cefTRIAXone 1GM/50ML D5W 50 ML IV SCH (10:23)
[2023-08-12] MEDS: HEPARIN SODIUM (PORCINE) 5000 UNITS/ML 1ML VIAL SC SCH ×2 (10:58→21:46)
[2023-08-12] MEDS: guaiFENesin-DM 100/10mg/5ml SYR PO PRN ×3 (11:30→21:57)
[2023-08-12] MEDS: ACCU-CHEK COMFORT CURVE STRIP VI SCH ×3 (11:31→22:00)
[2023-08-12] MEDS: ATORVASTATIN 20 MG TAB PO SCH (21:44)
[2023-08-13] VITALS (18 sets, daily range): BP systolic 98–150; BP diastolic 48–67; PULSE 88–111; RESP 16–20; TEMP 97.8–98.4; O2SAT 93–100
[2023-08-13] MEDS: LACTULOSE 20Gm/30ML SOLN PO SCH ×4 (00:26→18:05)
[2023-08-13] MEDS: IPRATROPIUM BROM 0.5 MG/2.5ML INH SOL NEB SCH ×6 (02:10→22:07)
[2023-08-13] MEDS: ALBUTEROL SULF 2.5 MG/0.5ML(0.5%) NEB SOLN NEB SCH ×6 (02:10→22:07)
[2023-08-13] MEDS: ACCU-CHEK COMFORT CURVE STRIP VI SCH ×4 (05:34→22:00)
[2023-08-13] MEDS: GABAPENTIN 100 MG CAP PO SCH ×3 (05:35→21:52)
[2023-08-13] MEDS: InsuLIN REG 1unit/0.01ml Soln (100units/ml) SC SCH ×4 (06:22→22:08)
[2023-08-13] MEDS: INSULIN LANTUS (GLARGINE) 1 /0.01ml (100units/ml) SC SCH ×2 (06:22→22:08)
[2023-08-13 06:49] LABS: Basophils # (auto) 0.1 10 ^3/uL (0-0.2); Eosinophils # (auto) 0.1 10 ^3/uL (0-0.8); Lymphocytes # (auto) 0.5 10 ^3/uL (0.4-5.4); Monocytes # (auto) 0.3 10 ^3/uL (0-1.3)
[2023-08-13 06:52] LABS: Anion Gap 8 (5-15); Carbon Dioxide 27 mmol/L (20-30); Chloride 95 mmol/L (98-107); Eosinophils % (auto) 2.6 % (0.0-7.0); Hematocrit 20.2 % (36.0-46.0); Lymphocytes % (auto) 10.2 % (10.0-50.0); Mean Corpuscular Hemoglobin 30.1 pg (28.0-32.0); Mean Corpuscular Hgb Conc. 33.1 g/dL (32.0-36.0); Mean Corpuscular Volume 90.9 fL (80.0-100.0); Monocytes % (auto) 6.1 % (0.0-12.0); Neutrophils % (auto) 80.1 % (37.0-80.0); Potassium 4.9 mmol/L (3.5-5.1); Red Blood Cells 2.22 10^6/uL (4.0-5.20); Red Cell Distribution Width 15.6 % (11.8-14.3); Sodium 130 mmol/L (136-145)
[2023-08-13 06:53] LABS: Calcium 8.5 mg/dL (8.5-10.1)
[2023-08-13 06:58] LABS: Blood Urea Nitrogen 42 mg/dL (9-23); Glucose 188 mg/dL (74-106)
[2023-08-13] MEDS ORDERED: SODIUM CHL 0.9% 1000 ML BAG XX ONE (07:00)
[2023-08-13 07:20] LABS: Hemoglobin 6.7 g/dL (12.2-16.2)
[2023-08-13] MEDS: SEVELAMER 800 MG TAB PO SCH ×3 (08:00→18:05)
[2023-08-13] MEDS: CALCIUM ACETATE 667 MG CAP PO SCH ×3 (08:00→18:05)
[2023-08-13] MEDS: PANTOPRAZOLE 40 MG/10 ML VIAL INJ IV SCH (09:43)
[2023-08-13] MEDS: FLUDROCORTISONE ACETATE 0.1 MG TAB PO SCH (09:43)
[2023-08-13] MEDS: ASPirin 81 mg TAB PO SCH (09:43)
[2023-08-13] MEDS: HEPARIN SODIUM (PORCINE) 5000 UNITS/ML 1ML VIAL SC SCH ×2 (09:44→22:00)
[2023-08-13] MEDS: FERROUS SULFATE 300 MG/5 ML ORAL LIQ GT SCH ×2 (09:50→21:52)
[2023-08-13] MEDS: cefTRIAXone 1GM/50ML D5W 50 ML IV SCH (09:50)
[2023-08-13] MEDS: METOPROLOL TARTRATE 25 MG TAB PO SCH ×2 (10:00→22:00)
[2023-08-13] MEDS: DIGOXIN 0.125 MG TAB PO SCH (10:00)
[2023-08-13] MEDS: HYDROcodone-ACET 5/325MG TAB PO PRN (10:54)
[2023-08-13] MEDS ORDERED: EPOETIN ALFA-EPBX 10,000 UNIT/1ML VIAL SC ONE (21:00)
[2023-08-13] MEDS: ATORVASTATIN 20 MG TAB PO SCH (21:52)
[2023-08-14] VITALS (16 sets, daily range): BP systolic 125–145; BP diastolic 54–69; PULSE 90–102; RESP 16–20; TEMP 98–98.7; O2SAT 92–100
[2023-08-14] MEDS: IPRATROPIUM BROM 0.5 MG/2.5ML INH SOL NEB SCH ×6 (02:00→22:35)
[2023-08-14] MEDS: ALBUTEROL SULF 2.5 MG/0.5ML(0.5%) NEB SOLN NEB SCH ×6 (02:00→22:35)
[2023-08-14] MEDS: GABAPENTIN 100 MG CAP PO SCH ×3 (05:32→22:37)
[2023-08-14] MEDS: LACTULOSE 20Gm/30ML SOLN PO SCH ×4 (05:33→18:00)
[2023-08-14] MEDS: InsuLIN REG 1unit/0.01ml Soln (100units/ml) SC SCH ×4 (06:16→22:51)
[2023-08-14] MEDS: INSULIN LANTUS (GLARGINE) 1 /0.01ml (100units/ml) SC SCH ×2 (06:16→22:52)
[2023-08-14] MEDS: ACCU-CHEK COMFORT CURVE STRIP VI SCH ×4 (06:17→22:44)
[2023-08-14 06:18] LABS: Basophils # (auto) 0.1 10 ^3/uL (0-0.2); Eosinophils # (auto) 0.1 10 ^3/uL (0-0.8); Eosinophils % (auto) 2.8 % (0.0-7.0); Lymphocytes # (auto) 0.5 10 ^3/uL (0.4-5.4)
[2023-08-14 06:21] LABS: Basophils % (auto) 1.4 % (0.0-2.0); Hematocrit 21.4 % (36.0-46.0); Lymphocytes % (auto) 10.8 % (10.0-50.0); Mean Corpuscular Hemoglobin 29.1 pg (28.0-32.0); Mean Corpuscular Volume 90.9 fL (80.0-100.0); Monocytes # (auto) 0.4 10 ^3/uL (0-1.3); Monocytes % (auto) 8.9 % (0.0-12.0); Neutrophils # (auto) 3.7 10 ^3/uL (1.6-8.6); Neutrophils % (auto) 76.1 % (37.0-80.0); Red Blood Cells 2.36 10^6/uL (4.0-5.20); Red Cell Distribution Width 15.8 % (11.8-14.3); White Blood Cell 4.9 10^3/uL (4.4-10.8)
[2023-08-14 06:28] LABS: Vancomycin,Random 15.4 ug/mL (10-20)
[2023-08-14 06:39] LABS: Hemoglobin 6.9 g/dL (12.2-16.2)
[2023-08-14] MEDS: CALCIUM ACETATE 667 MG CAP PO SCH ×3 (09:42→18:44)
[2023-08-14] MEDS: SEVELAMER 800 MG TAB PO SCH ×3 (09:42→18:44)
[2023-08-14] MEDS: PANTOPRAZOLE 40 MG/10 ML VIAL INJ IV SCH (09:51)
[2023-08-14] MEDS: FLUDROCORTISONE ACETATE 0.1 MG TAB PO SCH (09:53)
[2023-08-14] MEDS: cefTRIAXone 1GM/50ML D5W 50 ML IV SCH (09:53)
[2023-08-14] MEDS: ASPirin 81 mg TAB PO SCH (09:53)
[2023-08-14] MEDS: DIGOXIN 0.125 MG TAB PO SCH (09:54)
[2023-08-14] MEDS: METOPROLOL TARTRATE 25 MG TAB PO SCH ×2 (09:56→22:40)
[2023-08-14] MEDS: HEPARIN SODIUM (PORCINE) 5000 UNITS/ML 1ML VIAL SC SCH (09:59)
[2023-08-14] MEDS: FERROUS SULFATE 300 MG/5 ML ORAL LIQ PO SCH ×2 (11:29→22:40)
[2023-08-14] MEDS: HYDROcodone-ACET 5/325MG TAB PO PRN (11:57)
[2023-08-14] MEDS ORDERED: VANCOMYCIN 500 MG in D5W 5% 100 ML IV ONE (16:00)
[2023-08-14] MEDS: ATORVASTATIN 20 MG TAB PO SCH (22:35)
[2023-08-15] VITALS (19 sets, daily range): BP systolic 103–157; BP diastolic 45–63; PULSE 83–108; RESP 14–19; TEMP 97.9–98.6; O2SAT 94–100
[2023-08-15] MEDS: ALBUTEROL SULF 2.5 MG/0.5ML(0.5%) NEB SOLN NEB SCH ×6 (02:24→22:11)
[2023-08-15] MEDS: IPRATROPIUM BROM 0.5 MG/2.5ML INH SOL NEB SCH ×6 (02:25→22:11)
[2023-08-15] MEDS: guaiFENesin-DM 100/10mg/5ml SYR PO PRN (02:40)
[2023-08-15] MEDS: HYDROcodone-ACET 5/325MG TAB PO PRN ×3 (03:15→21:38)
[2023-08-15 05:30] LABS: Hematocrit 18.8 % (36.0-46.0)
[2023-08-15 05:37] LABS: Hemoglobin 6.2 g/dL (12.2-16.2)
[2023-08-15] MEDS: LACTULOSE 20Gm/30ML SOLN PO SCH ×3 (06:00→12:00)
[2023-08-15] MEDS: GABAPENTIN 100 MG CAP PO SCH ×3 (06:00→21:37)
[2023-08-15] MEDS: ACCU-CHEK COMFORT CURVE STRIP VI SCH ×4 (06:42→21:40)
[2023-08-15] MEDS: InsuLIN REG 1unit/0.01ml Soln (100units/ml) SC SCH ×4 (06:49→21:43)
[2023-08-15] MEDS: INSULIN LANTUS (GLARGINE) 1 /0.01ml (100units/ml) SC SCH ×2 (06:50→21:43)
[2023-08-15] MEDS ORDERED: SODIUM CHL 0.9% 1000 ML BAG XX ONE (07:00)
[2023-08-15] MEDS: SEVELAMER 800 MG TAB PO SCH ×3 (08:37→17:45)
[2023-08-15] MEDS: cefTRIAXone 1GM/50ML D5W 50 ML IV SCH (08:37)
[2023-08-15] MEDS: CALCIUM ACETATE 667 MG CAP PO SCH ×3 (08:37→17:45)
[2023-08-15] MEDS: PANTOPRAZOLE 40 MG/10 ML VIAL INJ IV SCH (10:21)
[2023-08-15] MEDS: FERROUS SULFATE 300 MG/5 ML ORAL LIQ PO SCH ×2 (10:26→21:39)
[2023-08-15] MEDS: ASPirin 81 mg TAB PO SCH (10:26)
[2023-08-15] MEDS: FLUDROCORTISONE ACETATE 0.1 MG TAB PO SCH (10:26)
[2023-08-15] MEDS: METOPROLOL TARTRATE 25 MG TAB PO SCH ×2 (10:27→21:36)
[2023-08-15] MEDS: DIGOXIN 0.125 MG TAB PO SCH (10:27)
[2023-08-15] MEDS ORDERED: LACTULOSE 20Gm/30ML SOLN PO PRN (14:00)
[2023-08-15] MEDS ORDERED: VANCOMYCIN 1GM/200ML 200 ML IV ONE (16:00)
[2023-08-15] MEDS ORDERED: EPOETIN ALFA-EPBX 10,000 UNIT/1ML VIAL SC ONE ×2 (16:00→21:00)
[2023-08-15] MEDS: SUCRALFATE 1 GM/10 ML ORAL SUSP PO SCH (17:46)
[2023-08-15] MEDS: ATORVASTATIN 20 MG TAB PO SCH (21:35)
[2023-08-15] MEDS: RANOLAZINE ER 500 MG TAB PO SCH (21:38)
[2023-08-16] VITALS (18 sets, daily range): BP systolic 105–142; BP diastolic 37–65; PULSE 59–104; RESP 16–20; TEMP 97.9–98.9; O2SAT 91–100
[2023-08-16] MEDS: guaiFENesin-DM 100/10mg/5ml SYR PO PRN (00:23)
[2023-08-16] MEDS: IPRATROPIUM BROM 0.5 MG/2.5ML INH SOL NEB SCH ×6 (02:03→21:46)
[2023-08-16] MEDS: ALBUTEROL SULF 2.5 MG/0.5ML(0.5%) NEB SOLN NEB SCH ×6 (02:03→21:46)
[2023-08-16 05:58] LABS: Eosinophils # (auto) 0.1 10 ^3/uL (0-0.8); Lymphocytes # (auto) 0.5 10 ^3/uL (0.4-5.4); Monocytes # (auto) 0.4 10 ^3/uL (0-1.3)
[2023-08-16 06:00] LABS: Basophils # (auto) 0 10 ^3/uL (0-0.2); Basophils % (auto) 0.8 % (0.0-2.0); Eosinophils % (auto) 2.5 % (0.0-7.0); Lymphocytes % (auto) 8.5 % (10.0-50.0); Mean Corpuscular Hemoglobin 30.2 pg (28.0-32.0); Mean Corpuscular Hgb Conc. 33.1 g/dL (32.0-36.0); Mean Corpuscular Volume 91.1 fL (80.0-100.0); Monocytes % (auto) 7.2 % (0.0-12.0); Neutrophils # (auto) 4.6 10 ^3/uL (1.6-8.6); Red Cell Distribution Width 15.8 % (11.8-14.3); White Blood Cell 5.7 10^3/uL (4.4-10.8)
[2023-08-16 06:03] LABS: Anion Gap 8 (5-15); Carbon Dioxide 29 mmol/L (20-30); Chloride 99 mmol/L (98-107); Potassium 3.9 mmol/L (3.5-5.1)
[2023-08-16 06:04] LABS: Calcium 8.9 mg/dL (8.5-10.1)
[2023-08-16 06:09] LABS: BUN/Creatinine Ratio 3.9 (10.0-20.0); Blood Urea Nitrogen 17 mg/dL (9-23); Glucose 132 mg/dL (74-106); Hemoglobin 6.6 g/dL (12.2-16.2)
[2023-08-16 06:17] LABS: % Iron Saturation 14.3 % (15-50)
[2023-08-16 06:19] LABS: Sodium 136 mmol/L (136-145)
[2023-08-16] MEDS: SUCRALFATE 1 GM/10 ML ORAL SUSP PO SCH ×2 (06:26→17:40)
[2023-08-16] MEDS: ACCU-CHEK COMFORT CURVE STRIP VI SCH ×4 (06:26→23:09)
[2023-08-16] MEDS: GABAPENTIN 100 MG CAP PO SCH ×3 (06:26→23:08)
[2023-08-16] MEDS: INSULIN LANTUS (GLARGINE) 1 /0.01ml (100units/ml) SC SCH ×2 (06:30→23:20)
[2023-08-16] MEDS: InsuLIN REG 1unit/0.01ml Soln (100units/ml) SC SCH ×4 (06:31→23:17)
[2023-08-16] MEDS: PANTOPRAZOLE 40 MG/10 ML VIAL INJ IV SCH (08:57)
[2023-08-16] MEDS: cefTRIAXone 1GM/50ML D5W 50 ML IV SCH (08:57)
[2023-08-16] MEDS: RANOLAZINE ER 500 MG TAB PO SCH ×2 (08:57→23:08)
[2023-08-16] MEDS: SEVELAMER 800 MG TAB PO SCH ×3 (08:57→17:40)
[2023-08-16] MEDS: FERROUS SULFATE 300 MG/5 ML ORAL LIQ PO SCH (08:57)
[2023-08-16] MEDS: CALCIUM ACETATE 667 MG CAP PO SCH ×3 (08:58→17:40)
[2023-08-16] MEDS: FLUDROCORTISONE ACETATE 0.1 MG TAB PO SCH (08:58)
[2023-08-16] MEDS: ASCORBIC ACID 500 MG TAB PO SCH (08:58)
[2023-08-16] MEDS: DIGOXIN 0.125 MG TAB PO SCH (08:58)
[2023-08-16] MEDS: METOPROLOL TARTRATE 25 MG TAB PO SCH ×2 (08:59→23:09)
[2023-08-16] MEDS ORDERED: IRON SUCROSE COMPLEX 100 ML IV SCH (13:00)
[2023-08-16] MEDS ORDERED: EPOETIN ALFA-EPBX 4,000 UNIT/ML VIAL SC ONE (14:45)
[2023-08-16] MEDS: ACETAMINOPHEN 325 MG TAB PO PRN (23:03)
[2023-08-16] MEDS: ATORVASTATIN 20 MG TAB PO SCH (23:08)
[2023-08-17] VITALS (36 sets, daily range): BP systolic 104–139; BP diastolic 49–78; PULSE 75–117; RESP 12–26; TEMP 97.3–98.9; O2SAT 86–100
[2023-08-17] MEDS: HYDROcodone-ACET 5/325MG TAB PO PRN (00:41)
[2023-08-17] MEDS: IPRATROPIUM BROM 0.5 MG/2.5ML INH SOL NEB SCH ×6 (02:04→22:14)
[2023-08-17] MEDS: ALBUTEROL SULF 2.5 MG/0.5ML(0.5%) NEB SOLN NEB SCH ×6 (02:04→22:14)
[2023-08-17] MEDS: ACCU-CHEK COMFORT CURVE STRIP VI SCH ×4 (06:30→22:01)
[2023-08-17] MEDS: INSULIN LANTUS (GLARGINE) 1 /0.01ml (100units/ml) SC SCH ×2 (06:31→22:02)
[2023-08-17] MEDS: InsuLIN REG 1unit/0.01ml Soln (100units/ml) SC SCH ×4 (06:31→22:02)
[2023-08-17 06:34] LABS: % Iron Saturation 27.5 % (15-50)
[2023-08-17] MEDS: GABAPENTIN 100 MG CAP PO SCH ×3 (06:37→21:47)
[2023-08-17] MEDS: SUCRALFATE 1 GM/10 ML ORAL SUSP PO SCH ×2 (06:37→17:00)
[2023-08-17] MEDS ORDERED: SODIUM CHL 0.9% 1000 ML BAG XX ONE (07:00)
[2023-08-17] MEDS: CALCIUM ACETATE 667 MG CAP PO SCH ×3 (08:58→18:00)
[2023-08-17] MEDS: PANTOPRAZOLE 40 MG/10 ML VIAL INJ IV SCH (08:58)
[2023-08-17] MEDS: RANOLAZINE ER 500 MG TAB PO SCH ×2 (08:59→21:47)
[2023-08-17] MEDS: SEVELAMER 800 MG TAB PO SCH ×3 (08:59→18:00)
[2023-08-17] MEDS: ASCORBIC ACID 500 MG TAB PO SCH (08:59)
[2023-08-17] MEDS: FOLIC ACID 1 MG TAB PO SCH (08:59)
[2023-08-17] MEDS: FLUDROCORTISONE ACETATE 0.1 MG TAB PO SCH (08:59)
[2023-08-17] MEDS: cefTRIAXone 1GM/50ML D5W 50 ML IV SCH (08:59)
[2023-08-17] MEDS: METOPROLOL TARTRATE 25 MG TAB PO SCH ×2 (09:00→21:47)
[2023-08-17] MEDS: DIGOXIN 0.125 MG TAB PO SCH (09:01)
[2023-08-17] MEDS: IRON SUCROSE COMPLEX 100 ML IV SCH (12:24)
[2023-08-17] MEDS ORDERED: POLYETHYLENE GLYCOL 17 GM PWDR PO PRN (15:30)
[2023-08-17] MEDS ORDERED: DOCUSATE SOD 100 MG CAP PO PRN (15:30)
[2023-08-17] MEDS ORDERED: HEPARIN SODIUM (PORCINE) 5000 UNITS/ML 1ML VIAL IV ONE ×2 (18:45→20:15)
[2023-08-17 18:49] LABS: Eosinophils # (auto) 0.1 10 ^3/uL (0-0.8); Lymphocytes # (auto) 0.5 10 ^3/uL (0.4-5.4); Monocytes # (auto) 0.4 10 ^3/uL (0-1.3)
[2023-08-17 18:50] LABS: Basophils # (auto) 0.1 10 ^3/uL (0-0.2); Basophils % (auto) 1.1 % (0.0-2.0); Hematocrit 19.1 % (36.0-46.0); Lymphocytes % (auto) 8.9 % (10.0-50.0); Mean Corpuscular Hemoglobin 29.4 pg (28.0-32.0); Mean Corpuscular Hgb Conc. 31.8 g/dL (32.0-36.0); Mean Corpuscular Volume 92.5 fL (80.0-100.0); Monocytes % (auto) 6.5 % (0.0-12.0); Neutrophils # (auto) 4.5 10 ^3/uL (1.6-8.6); Neutrophils % (auto) 81.5 % (37.0-80.0); Nucleated Red Blood Cells % 0.2 %; Red Blood Cells 2.07 10^6/uL (4.0-5.20); Red Cell Distribution Width 16.1 % (11.8-14.3); White Blood Cell 5.6 10^3/uL (4.4-10.8)
[2023-08-17 18:57] LABS: Hemoglobin 6.1 g/dL (12.2-16.2)
[2023-08-17 19:05] LABS: Alanine Aminotransferase 34 U/L (7-40); Albumin 3.3 g/dL (3.2-4.8); Alkaline Phosphatase 169 U/L (46-116); Anion Gap 8 (5-15); Aspartate Aminotransferase 30 U/L (13-40); BUN/Creatinine Ratio 4.6 (10.0-20.0); Bilirubin, Total 0.2 mg/dL (0.2-1.0); Blood Urea Nitrogen 25 mg/dL (9-23); Calcium 8.7 mg/dL (8.5-10.1); Carbon Dioxide 26 mmol/L (20-30); Chloride 97 mmol/L (98-107); Glucose 182 mg/dL (74-106); Potassium 4.1 mmol/L (3.5-5.1); Sodium 131 mmol/L (136-145); Total Protein 5.4 g/dL (5.7-8.2)
[2023-08-17 19:07] LABS: Platelet Estimate Adequate
[2023-08-17 19:08] LABS: Macrocytosis Slight
[2023-08-17] MEDS: HEPARIN DRIP/D5W 100UNITS/ML 250 ML IV SCH (19:15)
[2023-08-17] MEDS ORDERED: NITROGLYCERIN 50MG/250ML 250 ML IV ONE (19:16)
[2023-08-17] MEDS ORDERED: HEPARIN DRIP/D5W 100UNITS/ML 250 ML IV ONE (19:17)
[2023-08-17] MEDS ORDERED: CATHFLO ACTIVASE (ALTEPLASE) 2 MG VIAL IV ONE (19:30)
[2023-08-17] MEDS: NITROGLYCERIN 50MG/250ML 250 ML IV SCH (19:47)
[2023-08-17] MEDS ORDERED: CATHFLO ACTIVASE (ALTEPLASE) 2 MG VIAL ONE ×2 (19:52→20:05)
[2023-08-17] MEDS ORDERED: HEPARIN DRIP/D5W 100UNITS/ML 250 ML IV SCH (20:00)
[2023-08-17 20:13] LABS: Basophils # (auto) 0 10 ^3/uL (0-0.2); Basophils % (auto) 0.5 % (0.0-2.0); Eosinophils # (auto) 0.1 10 ^3/uL (0-0.8); Eosinophils % (auto) 1.2 % (0.0-7.0); Hemoglobin 7.1 g/dL (12.2-16.2); Lymphocytes # (auto) 0.4 10 ^3/uL (0.4-5.4); Lymphocytes % (auto) 4.4 % (10.0-50.0); Mean Corpuscular Hemoglobin 29.4 pg (28.0-32.0); Mean Corpuscular Hgb Conc. 32.2 g/dL (32.0-36.0); Mean Corpuscular Volume 91.3 fL (80.0-100.0); Monocytes # (auto) 0.3 10 ^3/uL (0-1.3); Monocytes % (auto) 4.2 % (0.0-12.0); Neutrophils # (auto) 7.5 10 ^3/uL (1.6-8.6); Neutrophils % (auto) 89.7 % (37.0-80.0); Red Blood Cells 2.41 10^6/uL (4.0-5.20); Red Cell Distribution Width 16.4 % (11.8-14.3); White Blood Cell 8.3 10^3/uL (4.4-10.8)
[2023-08-17 20:29] LABS: Partial Thromboplastin Time 29.7 SEC (24.5-34.5); Prothrombin Time 10.5 sec (9.3-11.8)
[2023-08-17] MEDS ORDERED: HEPARIN SODIUM (PORCINE) 5000 UNITS/ML 1ML VIAL ONE (20:53)
[2023-08-17] MEDS ORDERED: EPOETIN ALFA-EPBX 10,000 UNIT/1ML VIAL SC ONE (21:00)
[2023-08-17 21:02] LABS: Alanine Aminotransferase 28 U/L (7-40); Albumin 3.7 g/dL (3.2-4.8); Alkaline Phosphatase 190 U/L (46-116); Anion Gap 9 (5-15); Aspartate Aminotransferase 32 U/L (13-40); BUN/Creatinine Ratio 5.5 (10.0-20.0); Bilirubin, Total 0.2 mg/dL (0.2-1.0); Blood Urea Nitrogen 33 mg/dL (9-23); Calcium 8.5 mg/dL (8.7-10.4); Carbon Dioxide 25 mmol/L (20-30); Chloride 94 mmol/L (98-107); Glucose 232 mg/dL (74-106); Potassium 4.6 mmol/L (3.5-5.1); Sodium 128 mmol/L (136-145); Total Protein 6.2 g/dL (5.7-8.2)
[2023-08-17] MEDS: ATORVASTATIN 20 MG TAB PO SCH (21:47)
[2023-08-18] VITALS (89 sets, daily range): BP systolic 100–145; BP diastolic 35–63; PULSE 80–102; RESP 11–100; TEMP 97.9–99.2; O2SAT 18–100
[2023-08-18] MEDS ORDERED: SODIUM CHL 0.9% 1000 ML BAG XX ONE (00:15)
[2023-08-18] MEDS ORDERED: BUMETANIDE 2.5mg/10ml (0.25 mg/ml) INJ IV ONE (00:15)
[2023-08-18] MEDS: HEPARIN DRIP/D5W 100UNITS/ML 250 ML IV SCH ×3 (02:00→20:58)
[2023-08-18] MEDS: ALBUTEROL SULF 2.5 MG/0.5ML(0.5%) NEB SOLN NEB SCH ×6 (02:03→22:35)
[2023-08-18] MEDS: IPRATROPIUM BROM 0.5 MG/2.5ML INH SOL NEB SCH ×6 (02:03→22:35)
[2023-08-18 02:27] LABS: INR 1.01 (0.9-1.15); Partial Thromboplastin Time 46.7 SEC (24.5-34.5); Prothrombin Time 10.6 sec (9.3-11.8)
[2023-08-18] MEDS ORDERED: HEPARIN DRIP/D5W 100UNITS/ML 250 ML IV SCH (04:45)
[2023-08-18] MEDS: GABAPENTIN 100 MG CAP PO SCH ×3 (06:00→21:45)
[2023-08-18] MEDS: ACCU-CHEK COMFORT CURVE STRIP VI SCH ×4 (06:03→21:56)
[2023-08-18] MEDS: InsuLIN REG 1unit/0.01ml Soln (100units/ml) SC SCH ×4 (06:03→21:52)
[2023-08-18] MEDS: INSULIN LANTUS (GLARGINE) 1 /0.01ml (100units/ml) SC SCH ×2 (06:03→21:56)
[2023-08-18] MEDS: SUCRALFATE 1 GM/10 ML ORAL SUSP PO SCH ×2 (06:06→17:35)
[2023-08-18 06:52] LABS: Eosinophils # (auto) 0.1 10 ^3/uL (0-0.8); Lymphocytes # (auto) 0.6 10 ^3/uL (0.4-5.4); Mean Corpuscular Volume 91.3 fL (80.0-100.0); Monocytes # (auto) 0.4 10 ^3/uL (0-1.3)
[2023-08-18 06:53] LABS: Basophils # (auto) 0 10 ^3/uL (0-0.2); Basophils % (auto) 0.7 % (0.0-2.0); Eosinophils % (auto) 2.1 % (0.0-7.0); Hematocrit 20.3 % (36.0-46.0); Lymphocytes % (auto) 9.3 % (10.0-50.0); Mean Corpuscular Hemoglobin 29.9 pg (28.0-32.0); Mean Corpuscular Hgb Conc. 32.7 g/dL (32.0-36.0); Monocytes % (auto) 5.9 % (0.0-12.0); Nucleated Red Blood Cells % 0.1 %; Red Blood Cells 2.22 10^6/uL (4.0-5.20); Red Cell Distribution Width 16.7 % (11.8-14.3)
[2023-08-18 07:06] LABS: INR 1.02 (0.9-1.15); Partial Thromboplastin Time 64.3 SEC (24.5-34.5); Prothrombin Time 10.7 sec (9.3-11.8)
[2023-08-18 07:16] LABS: Hemoglobin 6.6 g/dL (12.2-16.2)
[2023-08-18] MEDS: ALBUMIN 25% 50 ML IV PRN ×2 (07:25→08:52)
[2023-08-18 07:46] LABS: Alanine Aminotransferase 28 U/L (7-40); Albumin 3.4 g/dL (3.2-4.8); Alkaline Phosphatase 172 U/L (46-116); Anion Gap 11 (5-15); Aspartate Aminotransferase 28 U/L (13-40); BUN/Creatinine Ratio 5.9 (10.0-20.0); Bilirubin, Total 0.3 mg/dL (0.2-1.0); Blood Urea Nitrogen 39 mg/dL (9-23); Calcium 8.5 mg/dL (8.5-10.1); Carbon Dioxide 24 mmol/L (20-30); Chloride 95 mmol/L (98-107); Glucose 122 mg/dL (74-106); Potassium 4.4 mmol/L (3.5-5.1); Sodium 130 mmol/L (136-145)
[2023-08-18 07:47] LABS: Total Protein 5.3 g/dL (5.7-8.2)
[2023-08-18] MEDS: CALCIUM ACETATE 667 MG CAP PO SCH ×3 (08:00→17:36)
[2023-08-18] MEDS: SEVELAMER 800 MG TAB PO SCH ×3 (08:00→17:36)
[2023-08-18 11:04] LABS: Base Excess 3.6 mmol/L (-2.0-2.0)
[2023-08-18] MEDS: IRON SUCROSE COMPLEX 100 ML IV SCH (11:30)
[2023-08-18] MEDS: cefTRIAXone 1GM/50ML D5W 50 ML IV SCH (11:30)
[2023-08-18] MEDS: PANTOPRAZOLE 40 MG/10 ML VIAL INJ IV SCH (11:31)
[2023-08-18] MEDS: FLUDROCORTISONE ACETATE 0.1 MG TAB PO SCH (11:31)
[2023-08-18] MEDS: FOLIC ACID 1 MG TAB PO SCH (11:31)
[2023-08-18] MEDS: ASCORBIC ACID 500 MG TAB PO SCH (11:31)
[2023-08-18] MEDS: DIGOXIN 0.125 MG TAB PO SCH (11:31)
[2023-08-18] MEDS: RANOLAZINE ER 500 MG TAB PO SCH ×2 (11:32→21:45)
[2023-08-18] MEDS: METOPROLOL TARTRATE 25 MG TAB PO SCH ×2 (11:32→21:57)
[2023-08-18 13:18] LABS: INR 1.04 (0.9-1.15); Prothrombin Time 10.9 sec (9.3-11.8)
[2023-08-18 13:21] LABS: Partial Thromboplastin Time 94.8 SEC (24.5-34.5)
[2023-08-18] MEDS: NITROGLYCERIN 50MG/250ML 250 ML IV SCH (17:36)
[2023-08-18] MEDS ORDERED: EPOETIN ALFA-EPBX 10,000 UNIT/1ML VIAL SC ONE (21:00)
[2023-08-18] MEDS: ATORVASTATIN 20 MG TAB PO SCH (21:45)
[2023-08-19] VITALS (74 sets, daily range): BP systolic 91–153; BP diastolic 34–69; PULSE 62–113; RESP 11–26; TEMP 98.1–98.4; O2SAT 90–100
[2023-08-19] MEDS: IPRATROPIUM BROM 0.5 MG/2.5ML INH SOL NEB SCH ×6 (02:07→22:19)
[2023-08-19] MEDS: ALBUTEROL SULF 2.5 MG/0.5ML(0.5%) NEB SOLN NEB SCH ×6 (02:07→22:19)
[2023-08-19 04:43] LABS: Eosinophils # (auto) 0.1 10 ^3/uL (0-0.8); Lymphocytes # (auto) 0.4 10 ^3/uL (0.4-5.4); Mean Corpuscular Volume 91.1 fL (80.0-100.0); Neutrophils # (auto) 3.2 10 ^3/uL (1.6-8.6); Nucleated Red Blood Cells % 0.2 %; White Blood Cell 4.1 10^3/uL (4.4-10.8)
[2023-08-19 04:45] LABS: Basophils # (auto) 0 10 ^3/uL (0-0.2); Basophils % (auto) 0.7 % (0.0-2.0); Eosinophils % (auto) 2.6 % (0.0-7.0); Hematocrit 17.9 % (36.0-46.0); Lymphocytes % (auto) 9.7 % (10.0-50.0); Mean Corpuscular Hemoglobin 28.6 pg (28.0-32.0); Mean Corpuscular Hgb Conc. 31.4 g/dL (32.0-36.0); Monocytes # (auto) 0.4 10 ^3/uL (0-1.3); Monocytes % (auto) 8.8 % (0.0-12.0); Neutrophils % (auto) 78.2 % (37.0-80.0); Red Blood Cells 1.97 10^6/uL (4.0-5.20); Red Cell Distribution Width 16.8 % (11.8-14.3)
[2023-08-19 04:48] LABS: INR 1.06 (0.9-1.15); Partial Thromboplastin Time 55.1 SEC (24.5-34.5); Prothrombin Time 11.1 sec (9.3-11.8)
[2023-08-19 04:49] LABS: Hemoglobin 5.6 g/dL (12.2-16.2)
[2023-08-19 04:52] LABS: Vancomycin,Random 19.3 ug/mL (10-20)
[2023-08-19 04:57] LABS: Digoxin (Lanoxin) 2.59 ng/mL (0.8-2)
[2023-08-19 05:15] LABS: Chloride 99 mmol/L (98-107); Potassium 4.1 mmol/L (3.5-5.1)
[2023-08-19 05:16] LABS: Anion Gap 7 (5-15); Carbon Dioxide 29 mmol/L (20-30)
[2023-08-19 05:17] LABS: Calcium 8.5 mg/dL (8.7-10.4)
[2023-08-19 05:21] LABS: BUN/Creatinine Ratio 4.5 (10.0-20.0); Blood Urea Nitrogen 20 mg/dL (9-23); Glucose 199 mg/dL (74-106)
[2023-08-19 05:22] LABS: Sodium 135 mmol/L (136-145)
[2023-08-19] MEDS: GABAPENTIN 100 MG CAP PO SCH ×3 (05:30→21:38)
[2023-08-19] MEDS: InsuLIN REG 1unit/0.01ml Soln (100units/ml) SC SCH ×4 (06:36→21:44)
[2023-08-19] MEDS: SUCRALFATE 1 GM/10 ML ORAL SUSP PO SCH ×2 (06:37→16:31)
[2023-08-19] MEDS: INSULIN LANTUS (GLARGINE) 1 /0.01ml (100units/ml) SC SCH ×2 (06:37→21:43)
[2023-08-19] MEDS: ACCU-CHEK COMFORT CURVE STRIP VI SCH ×4 (06:37→21:38)
[2023-08-19] MEDS ORDERED: SODIUM CHL 0.9% 1000 ML BAG XX ONE (07:00)
[2023-08-19] MEDS ORDERED: VERAPAMIL 2.5MG/ML INJ 2ML VIAL IV ONE (07:26)
[2023-08-19] MEDS ORDERED: HEPARIN SODIUM (PORCINE) 5000 UNITS/ML 1ML VIAL ONE (07:26)
[2023-08-19] MEDS ORDERED: ANGIOMAX 250 MG VIAL IV ONE (07:26)
[2023-08-19] MEDS ORDERED: SODIUM CHL 0.9% 50 ML ONE (07:27)
[2023-08-19] MEDS ORDERED: IODIXANOL 320MG/ML 100ML BTL IV ONE ×2 (07:27→07:52)
[2023-08-19] MEDS ORDERED: MIDAZOLAM HCL 2MG/2ML 2ml VIAL (1mg/ml) ONE (07:27)
[2023-08-19] MEDS ORDERED: LIDOCAINE 2%HCL (LOCAL ANESTH.) INJ 20ML MDV ONE (07:27)
[2023-08-19] MEDS ORDERED: fentaNYL CITRATE 100 MCG/2 ML VL ONE (07:27)
[2023-08-19] MEDS: SEVELAMER 800 MG TAB PO SCH ×3 (07:40→17:36)
[2023-08-19] MEDS: CALCIUM ACETATE 667 MG CAP PO SCH ×3 (07:40→17:36)
[2023-08-19] MEDS ORDERED: ASPirin 325 MG TAB ONE (07:49)
[2023-08-19] MEDS ORDERED: CLOPIDOGREL 300 MG TAB ONE (07:49)
[2023-08-19] MEDS: cefTRIAXone 1GM/50ML D5W 50 ML IV SCH (09:24)
[2023-08-19] MEDS: RANOLAZINE ER 500 MG TAB PO SCH ×2 (09:24→21:38)
[2023-08-19] MEDS: PANTOPRAZOLE 40 MG/10 ML VIAL INJ IV SCH (09:24)
[2023-08-19] MEDS: FOLIC ACID 1 MG TAB PO SCH (09:25)
[2023-08-19] MEDS: FLUDROCORTISONE ACETATE 0.1 MG TAB PO SCH (09:25)
[2023-08-19] MEDS: METOPROLOL TARTRATE 25 MG TAB PO SCH ×2 (09:27→21:38)
[2023-08-19] MEDS: ASCORBIC ACID 500 MG TAB PO SCH (09:27)
[2023-08-19] MEDS ORDERED: ALBUMIN 25% 100 ML IV ONE ×2 (14:30)
[2023-08-19] MEDS ORDERED: VANCOMYCIN 1GM/200ML 200 ML IV ONE ×2 (17:00→18:00)
[2023-08-19] MEDS: guaiFENesin-DM 100/10mg/5ml SYR PO PRN ×2 (17:36→20:33)
[2023-08-19] MEDS ORDERED: EPOETIN ALFA-EPBX 10,000 UNIT/1ML VIAL SC ONE (21:00)
[2023-08-19] MEDS: ATORVASTATIN 20 MG TAB PO SCH (21:38)
[2023-08-19] MEDS: ACETAMINOPHEN 325 MG TAB PO PRN (21:44)
[2023-08-20] VITALS (36 sets, daily range): BP systolic 106–161; BP diastolic 37–74; PULSE 78–94; RESP 11–18; TEMP 98.2–98.6; O2SAT 92–100
[2023-08-20] MEDS: ALBUTEROL SULF 2.5 MG/0.5ML(0.5%) NEB SOLN NEB SCH ×6 (02:17→22:43)
[2023-08-20] MEDS: IPRATROPIUM BROM 0.5 MG/2.5ML INH SOL NEB SCH ×6 (02:17→22:44)
[2023-08-20 04:17] LABS: Basophils # (auto) 0 10 ^3/uL (0-0.2); Monocytes # (auto) 0.3 10 ^3/uL (0-1.3); Neutrophils # (auto) 2.7 10 ^3/uL (1.6-8.6)
[2023-08-20 04:19] LABS: Basophils % (auto) 0.7 % (0.0-2.0); Eosinophils # (auto) 0.1 10 ^3/uL (0-0.8); Eosinophils % (auto) 3.4 % (0.0-7.0); Hematocrit 18.9 % (36.0-46.0); Lymphocytes # (auto) 0.4 10 ^3/uL (0.4-5.4); Lymphocytes % (auto) 10.3 % (10.0-50.0); Mean Corpuscular Hemoglobin 28.6 pg (28.0-32.0); Mean Corpuscular Volume 92.3 fL (80.0-100.0); Monocytes % (auto) 9.2 % (0.0-12.0); Neutrophils % (auto) 76.4 % (37.0-80.0); Nucleated Red Blood Cells % 0.7 %; Red Blood Cells 2.05 10^6/uL (4.0-5.20); Red Cell Distribution Width 17.2 % (11.8-14.3); White Blood Cell 3.6 10^3/uL (4.4-10.8)
[2023-08-20 04:29] LABS: Hemoglobin 5.9 g/dL (12.2-16.2)
[2023-08-20 04:43] LABS: Alanine Aminotransferase 19 U/L (7-40); Albumin 4.2 g/dL (3.2-4.8); Alkaline Phosphatase 206 U/L (46-116); Anion Gap 6 (5-15); Aspartate Aminotransferase 22 U/L (13-40); BUN/Creatinine Ratio 3.7 (10.0-20.0); Bilirubin, Total 0.4 mg/dL (0.2-1.0); Blood Urea Nitrogen 12 mg/dL (9-23); Calcium 9.4 mg/dL (8.5-10.1); Carbon Dioxide 30 mmol/L (20-30); Chloride 102 mmol/L (98-107); Glucose 152 mg/dL (74-106); Potassium 4.1 mmol/L (3.5-5.1); Sodium 138 mmol/L (136-145); Total Protein 6.5 g/dL (5.7-8.2)
[2023-08-20] MEDS: GABAPENTIN 100 MG CAP PO SCH ×3 (06:00→21:57)
[2023-08-20] MEDS: InsuLIN REG 1unit/0.01ml Soln (100units/ml) SC SCH ×4 (06:51→22:09)
[2023-08-20] MEDS: INSULIN LANTUS (GLARGINE) 1 /0.01ml (100units/ml) SC SCH ×2 (06:52→22:08)
[2023-08-20] MEDS: ACCU-CHEK COMFORT CURVE STRIP VI SCH ×4 (07:00→22:08)
[2023-08-20] MEDS: SUCRALFATE 1 GM/10 ML ORAL SUSP PO SCH ×2 (07:35→16:33)
[2023-08-20] MEDS: CALCIUM ACETATE 667 MG CAP PO SCH ×3 (07:36→17:37)
[2023-08-20] MEDS: SEVELAMER 800 MG TAB PO SCH ×3 (07:36→17:37)
[2023-08-20] MEDS: cefTRIAXone 1GM/50ML D5W 50 ML IV SCH (09:21)
[2023-08-20] MEDS: PANTOPRAZOLE 40 MG/10 ML VIAL INJ IV SCH (09:27)
[2023-08-20] MEDS: FOLIC ACID 1 MG TAB PO SCH (09:28)
[2023-08-20] MEDS: RANOLAZINE ER 500 MG TAB PO SCH ×2 (09:28→21:56)
[2023-08-20] MEDS: ASCORBIC ACID 500 MG TAB PO SCH (09:28)
[2023-08-20] MEDS: ASPirin 81 mg TAB PO SCH (09:28)
[2023-08-20] MEDS: CLOPIDOGREL BISULFATE 75 MG TAB PO SCH (09:28)
[2023-08-20] MEDS: METOPROLOL TARTRATE 25 MG TAB PO SCH ×2 (09:29→21:57)
[2023-08-20] MEDS: FLUDROCORTISONE ACETATE 0.1 MG TAB PO SCH (09:29)
[2023-08-20] MEDS: guaiFENesin-DM 100/10mg/5ml SYR PO PRN ×4 (09:44→20:16)
[2023-08-20] MEDS ORDERED: IRON SUCROSE COMPLEX 100 ML IV SCH (12:45)
[2023-08-20] MEDS: SODIUM FERR GLUC 62.5MG/5ML 125 MG in SODIUM CHL 0.9% 100 ML IV SCH (13:38)
[2023-08-20] MEDS: ATORVASTATIN 20 MG TAB PO SCH (21:56)
[2023-08-21] VITALS (22 sets, daily range): BP systolic 110–152; BP diastolic 45–61; PULSE 76–89; RESP 12–20; TEMP 97.8–98.4; O2SAT 92–100
[2023-08-21] MEDS: IPRATROPIUM BROM 0.5 MG/2.5ML INH SOL NEB SCH ×6 (02:13→22:23)
[2023-08-21] MEDS: ALBUTEROL SULF 2.5 MG/0.5ML(0.5%) NEB SOLN NEB SCH ×6 (02:13→22:23)
[2023-08-21] MEDS ORDERED: INSUINJ37 SC (03:18)
[2023-08-21] MEDS ORDERED: OMEP-386 PO (03:18)
[2023-08-21] MEDS ORDERED: CARI-277 PO (03:18)
[2023-08-21] MEDS ORDERED: GAB100C PO (03:18)
[2023-08-21] MEDS ORDERED: POTA10TA51 PO (03:18)
[2023-08-21] MEDS: guaiFENesin-DM 100/10mg/5ml SYR PO PRN ×4 (04:13→23:53)
[2023-08-21] MEDS: ACETAMINOPHEN 325 MG TAB PO PRN (04:53)
[2023-08-21 05:20] LABS: Mean Corpuscular Hemoglobin 29.8 pg (28.0-32.0)
[2023-08-21 05:23] LABS: Hematocrit 19.4 % (36.0-46.0); Mean Corpuscular Hgb Conc. 32.3 g/dL (32.0-36.0); Mean Corpuscular Volume 92.2 fL (80.0-100.0); Red Cell Distribution Width 17.1 % (11.8-14.3)
[2023-08-21 05:33] LABS: Anion Gap 8 (5-15); Carbon Dioxide 28 mmol/L (20-30); Chloride 98 mmol/L (98-107); Sodium 134 mmol/L (136-145)
[2023-08-21 05:34] LABS: Calcium 8.9 mg/dL (8.7-10.4)
[2023-08-21 05:38] LABS: Hemoglobin 6.2 g/dL (12.2-16.2)
[2023-08-21 05:39] LABS: BUN/Creatinine Ratio 3.9 (10.0-20.0); Band Neutrophils % (manual) 0; Basophils % (manual) 0 (0.0-2.0); Blast Cells 0; Blood Urea Nitrogen 18 mg/dL (9-23); Glucose 202 mg/dL (74-106); Metamyelocytes % 0; Myelocytes % 0; Promyelocytes % 0; Reactive Lymphocytes 0
[2023-08-21] MEDS: ACCU-CHEK COMFORT CURVE STRIP VI SCH ×4 (06:33→22:18)
[2023-08-21 06:35] LABS: Digoxin (Lanoxin) 2.04 ng/mL (0.8-2)
[2023-08-21] MEDS: INSULIN LANTUS (GLARGINE) 1 /0.01ml (100units/ml) SC SCH ×2 (06:40→22:27)
[2023-08-21] MEDS: InsuLIN REG 1unit/0.01ml Soln (100units/ml) SC SCH ×4 (06:41→22:27)
[2023-08-21] MEDS: SUCRALFATE 1 GM/10 ML ORAL SUSP PO SCH ×2 (06:42→16:59)
[2023-08-21] MEDS: GABAPENTIN 100 MG CAP PO SCH ×3 (06:45→22:17)
[2023-08-21] MEDS ORDERED: SODIUM CHL 0.9% 1000 ML BAG XX ONE (07:00)
[2023-08-21 07:17] LABS: Eosinophils % (manual) 2 (0-7); Lymphocytes % (manual) 17 (10.0-50.0); Monocytes % (manual) 9 (0-12); Platelet Estimate Adequate
[2023-08-21 07:19] LABS: Hypochromia Slight
[2023-08-21 07:20] LABS: Stomatocytes Few
[2023-08-21] MEDS: CALCIUM ACETATE 667 MG CAP PO SCH ×3 (07:58→17:47)
[2023-08-21] MEDS: SEVELAMER 800 MG TAB PO SCH ×3 (07:58→17:47)
[2023-08-21] MEDS: cefTRIAXone 1GM/50ML D5W 50 ML IV SCH ×2 (09:00→09:17)
[2023-08-21] MEDS: PANTOPRAZOLE 40 MG/10 ML VIAL INJ IV SCH (09:17)
[2023-08-21] MEDS: METOPROLOL TARTRATE 25 MG TAB PO SCH ×4 (09:28→22:18)
[2023-08-21] MEDS: CLOPIDOGREL BISULFATE 75 MG TAB PO SCH ×2 (09:28→14:54)
[2023-08-21] MEDS: ASCORBIC ACID 500 MG TAB PO SCH ×2 (09:28→14:55)
[2023-08-21] MEDS: FOLIC ACID 1 MG TAB PO SCH ×2 (09:28→14:54)
[2023-08-21] MEDS: ASPirin 81 mg TAB PO SCH ×2 (09:28→14:54)
[2023-08-21] MEDS: FLUDROCORTISONE ACETATE 0.1 MG TAB PO SCH (09:28)
[2023-08-21] MEDS: RANOLAZINE ER 500 MG TAB PO SCH ×3 (09:28→22:18)
[2023-08-21] MEDS ORDERED: LACTULOSE 20Gm/30ML SOLN PO ONE (09:30)
[2023-08-21] MEDS: DOCUSATE SOD 100 MG CAP PO SCH ×2 (10:00→22:18)
[2023-08-21] MEDS ORDERED: DIGOXIN 0.125 MG TAB PO SCH (10:00)
[2023-08-21] MEDS ORDERED: hydrALAZINE HCL 20 MG/ML VL IV PRN (10:15)
[2023-08-21] MEDS ORDERED: MEROPENEM 500MG IVPB 50 ML IV ONE (13:45)
[2023-08-21] MEDS: SODIUM FERR GLUC 62.5MG/5ML 125 MG in SODIUM CHL 0.9% 100 ML IV SCH (14:50)
[2023-08-21] MEDS: LACTULOSE 20Gm/30ML SOLN PO PRN (15:12)
[2023-08-21] MEDS: ATORVASTATIN 20 MG TAB PO SCH (22:17)
[2023-08-22] VITALS (19 sets, daily range): BP systolic 132–153; BP diastolic 43–55; PULSE 80–92; RESP 15–21; TEMP 97.9–98.3; O2SAT 93–100
[2023-08-22] MEDS: ALBUTEROL SULF 2.5 MG/0.5ML(0.5%) NEB SOLN NEB SCH ×6 (02:20→23:08)
[2023-08-22] MEDS: IPRATROPIUM BROM 0.5 MG/2.5ML INH SOL NEB SCH ×6 (02:20→23:08)
[2023-08-22 05:40] LABS: Chloride 97 mmol/L (98-107); Potassium 3.7 mmol/L (3.5-5.1); Sodium 134 mmol/L (136-145)
[2023-08-22 05:41] LABS: Anion Gap 8 (5-15); Calcium 8.9 mg/dL (8.7-10.4); Carbon Dioxide 29 mmol/L (20-30)
[2023-08-22 05:43] LABS: Hematocrit 20.8 % (36.0-46.0); Mean Corpuscular Hemoglobin 29.6 pg (28.0-32.0); Mean Corpuscular Hgb Conc. 32.3 g/dL (32.0-36.0); Mean Corpuscular Volume 91.5 fL (80.0-100.0); Red Blood Cells 2.27 10^6/uL (4.0-5.20); White Blood Cell 4.2 10^3/uL (4.4-10.8)
[2023-08-22 05:46] LABS: BUN/Creatinine Ratio 3.2 (10.0-20.0); Blood Urea Nitrogen 11 mg/dL (9-23); Glucose 161 mg/dL (74-106)
[2023-08-22 06:02] LABS: Hemoglobin 6.7 g/dL (12.2-16.2)
[2023-08-22 06:03] LABS: Band Neutrophils % (manual) 0; Basophils % (manual) 0 (0.0-2.0); Blast Cells 0; Metamyelocytes % 0; Myelocytes % 0; Promyelocytes % 0; Reactive Lymphocytes 0
[2023-08-22] MEDS: SUCRALFATE 1 GM/10 ML ORAL SUSP PO SCH ×2 (06:29→16:52)
[2023-08-22] MEDS: GABAPENTIN 100 MG CAP PO SCH ×3 (06:29→21:17)
[2023-08-22] MEDS: ACCU-CHEK COMFORT CURVE STRIP VI SCH ×4 (06:34→21:44)
[2023-08-22] MEDS: InsuLIN REG 1unit/0.01ml Soln (100units/ml) SC SCH ×4 (06:35→21:54)
[2023-08-22] MEDS: INSULIN LANTUS (GLARGINE) 1 /0.01ml (100units/ml) SC SCH ×2 (06:35→21:53)
[2023-08-22 07:52] LABS: Eosinophils % (manual) 5 (0-7); Lymphocytes % (manual) 17 (10.0-50.0); Monocytes % (manual) 5 (0-12)
[2023-08-22 07:53] LABS: Stomatocytes Moderate
[2023-08-22 07:54] LABS: Platelet Estimate Adequate
[2023-08-22] MEDS: PANTOPRAZOLE 40 MG/10 ML VIAL INJ IV SCH (09:03)
[2023-08-22] MEDS: SEVELAMER 800 MG TAB PO SCH (09:03)
[2023-08-22] MEDS: FOLIC ACID 1 MG TAB PO SCH (09:04)
[2023-08-22] MEDS: RANOLAZINE ER 500 MG TAB PO SCH ×2 (09:04→21:36)
[2023-08-22] MEDS: ASPirin 81 mg TAB PO SCH (09:04)
[2023-08-22] MEDS: METOPROLOL TARTRATE 25 MG TAB PO SCH ×2 (09:05→21:19)
[2023-08-22] MEDS: CLOPIDOGREL BISULFATE 75 MG TAB PO SCH (09:05)
[2023-08-22] MEDS: ASCORBIC ACID 500 MG TAB PO SCH (09:05)
[2023-08-22] MEDS: DOCUSATE SOD 100 MG CAP PO SCH ×2 (09:06→21:17)
[2023-08-22] MEDS: CALCIUM ACETATE 667 MG CAP PO SCH ×3 (09:06→17:52)
[2023-08-22] MEDS: MEROPENEM 500MG IVPB 50 ML IV SCH (10:24)
[2023-08-22] MEDS: guaiFENesin-DM 100/10mg/5ml SYR PO PRN ×3 (11:50→21:20)
[2023-08-22] MEDS: SODIUM FERR GLUC 62.5MG/5ML 125 MG in SODIUM CHL 0.9% 100 ML IV SCH (14:02)
[2023-08-22] MEDS: ATORVASTATIN 20 MG TAB PO SCH (21:17)
[2023-08-22] MEDS: HYDROcodone-ACET 5/325MG TAB PO PRN (22:59)
[2023-08-23] VITALS (21 sets, daily range): BP systolic 105–164; BP diastolic 52–61; PULSE 71–87; RESP 16–20; TEMP 96.6–98.5; O2SAT 67–100
[2023-08-23] MEDS: ALBUTEROL SULF 2.5 MG/0.5ML(0.5%) NEB SOLN NEB SCH ×6 (02:36→21:36)
[2023-08-23] MEDS: IPRATROPIUM BROM 0.5 MG/2.5ML INH SOL NEB SCH ×6 (02:36→21:36)
[2023-08-23] MEDS: LACTULOSE 20Gm/30ML SOLN PO PRN (06:33)
[2023-08-23] MEDS: ACCU-CHEK COMFORT CURVE STRIP VI SCH ×4 (06:33→22:00)
[2023-08-23] MEDS: SUCRALFATE 1 GM/10 ML ORAL SUSP PO SCH ×2 (06:33→18:19)
[2023-08-23] MEDS: GABAPENTIN 100 MG CAP PO SCH ×3 (06:33→22:28)
[2023-08-23 06:37] LABS: White Blood Cell 4.8 10^3/uL (4.4-10.8)
[2023-08-23 06:38] LABS: Hematocrit 21.2 % (36.0-46.0); Mean Corpuscular Hemoglobin 28.7 pg (28.0-32.0); Mean Corpuscular Hgb Conc. 31.8 g/dL (32.0-36.0); Mean Corpuscular Volume 90.5 fL (80.0-100.0); Red Blood Cells 2.35 10^6/uL (4.0-5.20); Red Cell Distribution Width 17.3 % (11.8-14.3)
[2023-08-23] MEDS: InsuLIN REG 1unit/0.01ml Soln (100units/ml) SC SCH ×4 (06:44→22:29)
[2023-08-23] MEDS: INSULIN LANTUS (GLARGINE) 1 /0.01ml (100units/ml) SC SCH ×2 (06:45→22:30)
[2023-08-23 07:16] LABS: Hemoglobin 6.7 g/dL (12.2-16.2)
[2023-08-23 07:17] LABS: Band Neutrophils % (manual) 0; Basophils % (manual) 0 (0.0-2.0); Blast Cells 0; Metamyelocytes % 0; Myelocytes % 0; Promyelocytes % 0; Reactive Lymphocytes 0
[2023-08-23 09:08] LABS: Eosinophils % (manual) 5 (0-7); Lymphocytes % (manual) 15 (10.0-50.0); Monocytes % (manual) 9 (0-12); Platelet Estimate Adequate
[2023-08-23] MEDS: PANTOPRAZOLE 40 MG/10 ML VIAL INJ IV SCH (10:25)
[2023-08-23] MEDS: RANOLAZINE ER 500 MG TAB PO SCH ×2 (10:25→22:30)
[2023-08-23] MEDS: DOCUSATE SOD 100 MG CAP PO SCH ×2 (10:25→22:28)
[2023-08-23] MEDS: CLOPIDOGREL BISULFATE 75 MG TAB PO SCH (10:25)
[2023-08-23] MEDS: ASCORBIC ACID 500 MG TAB PO SCH (10:26)
[2023-08-23] MEDS: ASPirin 81 mg TAB PO SCH (10:26)
[2023-08-23] MEDS: CALCIUM ACETATE 667 MG CAP PO SCH ×3 (10:26→18:22)
[2023-08-23] MEDS: FOLIC ACID 1 MG TAB PO SCH (10:26)
[2023-08-23] MEDS: METOPROLOL TARTRATE 25 MG TAB PO SCH ×2 (10:27→22:28)
[2023-08-23] MEDS: MEROPENEM 500MG IVPB 50 ML IV SCH (11:45)
[2023-08-23] MEDS ORDERED: IRON SUCROSE COMPLEX 100 ML IV ONE ×2 (12:15→14:15)
[2023-08-23] MEDS: ATORVASTATIN 20 MG TAB PO SCH (22:28)
[2023-08-24] VITALS (10 sets, daily range): BP systolic 114–145; BP diastolic 32–59; PULSE 63–90; RESP 18–20; TEMP 98.5–98.6; O2SAT 93–100
[2023-08-24] MEDS: HYDROcodone-ACET 5/325MG TAB PO PRN ×2 (01:22→10:23)
[2023-08-24] MEDS: ALBUTEROL SULF 2.5 MG/0.5ML(0.5%) NEB SOLN NEB SCH ×3 (02:13→10:37)
[2023-08-24] MEDS: IPRATROPIUM BROM 0.5 MG/2.5ML INH SOL NEB SCH ×3 (02:13→10:36)
[2023-08-24] MEDS: InsuLIN REG 1unit/0.01ml Soln (100units/ml) SC SCH ×2 (05:50→11:30)
[2023-08-24] MEDS: INSULIN LANTUS (GLARGINE) 1 /0.01ml (100units/ml) SC SCH (05:50)
[2023-08-24] MEDS: ACCU-CHEK COMFORT CURVE STRIP VI SCH ×2 (05:50→11:30)
[2023-08-24] MEDS: SUCRALFATE 1 GM/10 ML ORAL SUSP PO SCH (05:51)
[2023-08-24] MEDS ORDERED: SODIUM CHL 0.9% 1000 ML BAG XX ONE (07:00)
[2023-08-24] MEDS: CALCIUM ACETATE 667 MG CAP PO SCH ×2 (10:23→12:40)
[2023-08-24] MEDS: RANOLAZINE ER 500 MG TAB PO SCH (10:23)
[2023-08-24] MEDS: MEROPENEM 500MG IVPB 50 ML IV SCH (10:23)
[2023-08-24] MEDS: CLOPIDOGREL BISULFATE 75 MG TAB PO SCH (10:23)
[2023-08-24] MEDS: ASPirin 81 mg TAB PO SCH (10:23)
[2023-08-24] MEDS: ASCORBIC ACID 500 MG TAB PO SCH (10:23)
[2023-08-24] MEDS: DOCUSATE SOD 100 MG CAP PO SCH (10:24)
[2023-08-24] MEDS: METOPROLOL TARTRATE 25 MG TAB PO SCH (10:24)
[2023-08-24] MEDS: FOLIC ACID 1 MG TAB PO SCH (10:24)
[2023-08-24] MEDS ORDERED: IRON SUCROSE COMPLEX 100 ML IV SCH (12:00)
[2023-08-24] MEDS: PANTOPRAZOLE 40 MG/10 ML VIAL INJ IV SCH (12:40)
[2023-08-24] MEDS ORDERED: EPOETIN ALFA-EPBX 10,000 UNIT/1ML VIAL SC ONE (21:00)
== END 2023-08-24 14:54 | DRG 853 ==
LOC: ER 23:10 → TELE 07-23 05:36 → ICU CENTRL 07-26 09:16 → DOU IN ICU 08-02 14:40 → TELE-WESTW 08-09 12:12 → ICU WEST 08-17 19:16 → TELE-WESTW 08-21 02:35
PROVIDERS: ADMIT Nurse Practitioner; ATTEND Internal Medicine Geriatric Medicine
PROC: 06HY33Z Insertion of Infusion Device into Lower Vein, Percutaneous Approach (ICD-10-PCS; principal; 2023-07-23)
PROC: 5A1955Z Respiratory Ventilation, Greater than 96 Consecutive Hours (ICD-10-PCS; 2023-07-23)
PROC: 0BH17EZ Insertion of Endotracheal Airway into Trachea, Via Natural or Artificial Opening (ICD-10-PCS; 2023-07-23)
PROC: B54BZZA Ultrasonography of Right Lower Extremity Veins, Guidance (ICD-10-PCS; 2023-07-23)
PROC: 5A12012 Performance of Cardiac Output, Single, Manual (ICD-10-PCS; 2023-07-23)
PROC: 5A09357 Assistance with Respiratory Ventilation, Less than 24 Consecutive Hours, Continuous Positive Airway Pressure (ICD-10-PCS; 2023-07-23)
PROC: 5A1D70Z Performance of Urinary Filtration, Intermittent, Less than 6 Hours Per Day (ICD-10-PCS; 2023-07-24)
PROC: 4A023N7 Measurement of Cardiac Sampling and Pressure, Left Heart, Percutaneous Approach (ICD-10-PCS; 2023-07-25)
PROC: B211YZZ Fluoroscopy of Multiple Coronary Arteries using Other Contrast (ICD-10-PCS; 2023-07-25)
PROC: B41FYZZ Fluoroscopy of Right Lower Extremity Arteries using Other Contrast (ICD-10-PCS; 2023-07-25)
PROC: 0D9670Z Drainage of Stomach with Drainage Device, Via Natural or Artificial Opening (ICD-10-PCS; 2023-07-26)
PROC: 5A1D70Z Performance of Urinary Filtration, Intermittent, Less than 6 Hours Per Day (ICD-10-PCS; 2023-07-27)
PROC: 02HV33Z Insertion of Infusion Device into Superior Vena Cava, Percutaneous Approach (ICD-10-PCS; 2023-07-29)
PROC: B548ZZA Ultrasonography of Superior Vena Cava, Guidance (ICD-10-PCS; 2023-07-29)
PROC: 3E0336Z Introduction of Nutritional Substance into Peripheral Vein, Percutaneous Approach (ICD-10-PCS; 2023-07-29)
PROC: 5A1D70Z Performance of Urinary Filtration, Intermittent, Less than 6 Hours Per Day (ICD-10-PCS; 2023-07-30)
PROC: 5A1D70Z Performance of Urinary Filtration, Intermittent, Less than 6 Hours Per Day (ICD-10-PCS; 2023-08-01)
PROC: 5A09357 Assistance with Respiratory Ventilation, Less than 24 Consecutive Hours, Continuous Positive Airway Pressure (ICD-10-PCS; 2023-08-01)
PROC: 5A09357 Assistance with Respiratory Ventilation, Less than 24 Consecutive Hours, Continuous Positive Airway Pressure (ICD-10-PCS; 2023-08-02)
PROC: 5A1D70Z Performance of Urinary Filtration, Intermittent, Less than 6 Hours Per Day (ICD-10-PCS; 2023-08-03)
PROC: 5A1D70Z Performance of Urinary Filtration, Intermittent, Less than 6 Hours Per Day (ICD-10-PCS; 2023-08-06)
PROC: 5A1D70Z Performance of Urinary Filtration, Intermittent, Less than 6 Hours Per Day (ICD-10-PCS; 2023-08-08)
PROC: 5A1D70Z Performance of Urinary Filtration, Intermittent, Less than 6 Hours Per Day (ICD-10-PCS; 2023-08-10)
PROC: 5A1D70Z Performance of Urinary Filtration, Intermittent, Less than 6 Hours Per Day (ICD-10-PCS; 2023-08-13)
PROC: 5A1D70Z Performance of Urinary Filtration, Intermittent, Less than 6 Hours Per Day (ICD-10-PCS; 2023-08-15)
PROC: 5A09357 Assistance with Respiratory Ventilation, Less than 24 Consecutive Hours, Continuous Positive Airway Pressure (ICD-10-PCS; 2023-08-17)
PROC: 5A1D70Z Performance of Urinary Filtration, Intermittent, Less than 6 Hours Per Day (ICD-10-PCS; 2023-08-18)
PROC: 027034Z Dilation of Coronary Artery, One Artery with Drug-eluting Intraluminal Device, Percutaneous Approach (ICD-10-PCS; 2023-08-19)
PROC: 5A1D70Z Performance of Urinary Filtration, Intermittent, Less than 6 Hours Per Day (ICD-10-PCS; 2023-08-19)
PROC: 5A1D70Z Performance of Urinary Filtration, Intermittent, Less than 6 Hours Per Day (ICD-10-PCS; 2023-08-21)
DX: A41.9 Sepsis, unspecified organism (principal); I21.4 Non-ST elevation (NSTEMI) myocardial infarction; I50.33 Acute on chronic diastolic (congestive) heart failure; I46.9 Cardiac arrest, cause unspecified; J96.01 Acute respiratory failure with hypoxia; J96.02 Acute respiratory failure with hypercapnia; N18.6 End stage renal disease; R57.0 Cardiogenic shock; J81.0 Acute pulmonary edema; J15.5 Pneumonia due to Escherichia coli; J98.11 Atelectasis; I13.2 Hypertensive heart and chronic kidney disease with heart failure and with stage 5 chronic kidney disease, or end stage renal disease; J90 Pleural effusion, not elsewhere classified; Z16.12 Extended spectrum beta lactamase (ESBL) resistance; D63.1 Anemia in chronic kidney disease; Z20.822 Contact with and (suspected) exposure to COVID-19; E87.5 Hyperkalemia; E78.5 Hyperlipidemia, unspecified; I25.10 Atherosclerotic heart disease of native coronary artery without angina pectoris; E11.22 Type 2 diabetes mellitus with diabetic chronic kidney disease; E66.9 Obesity, unspecified; E11.65 Type 2 diabetes mellitus with hyperglycemia; K59.00 Constipation, unspecified; R74.01 Elevation of levels of liver transaminase levels; D50.9 Iron deficiency anemia, unspecified; T38.0X5A Adverse effect of glucocorticoids and synthetic analogues, initial encounter; I95.1 Orthostatic hypotension; Z99.2 Dependence on renal dialysis; Z79.82 Long term (current) use of aspirin; Z79.02 Long term (current) use of antithrombotics/antiplatelets; Z79.4 Long term (current) use of insulin; Z83.3 Family history of diabetes mellitus; Z68.30 Body mass index [BMI] 30.0-30.9, adult
CPT/HCPCS: 31500; 36415; 36600; 70450; 71045; 74018; 75710; 76604; 80048; 80053; 80061; 80162; 80202; 81001; 82533; 82565; 82607; 82728; 82746; 82805; 82962; 83036; 83540; 83550; 83605; 83735; 83880; 84443; 84484; 85007; 85014; 85018; 85025; 85027; 85610; 85730; 87040; 87070; 87077; 87081; 87086; 87186; 87205; 87340; 87426; 87804; 90935; 92610; 92941; 92950; 93005; 93306; 93458; 93970; 94002; 94003; 94640; 94660; 96374; 96375; 97110; 97116; 97163; 97530; 99152; 99291; C1874; C9113; G0378; J1100; J1642; J1756; J1815; J2185; J2250; J2405; J2704; J3490; J7060; P9047; Q9967

== ENCOUNTER 2023-08-27 04:26 | Inpatient (IN) | payer MEDICARE, OTHER ==
[~2023-08-27] VITALS: Ht 157.5 cm; Wt 79.8 kg
[2023-08-27] VITALS (55 sets, daily range): BP systolic 71–144; BP diastolic 32–69; PULSE 70–110; RESP 14–28; TEMP 98.2–99.1; O2SAT 88–100
[~2023-08-27 04:26] MED LIST changes: +CARI-277 PO; +GAB100C PO; +INSUINJ37 SC; +OMEP-386 PO; +POTA10TA51 PO
[2023-08-27 07:23] LABS: Basophils # (auto) 0 10 ^3/uL (0-0.2); Eosinophils # (auto) 0.1 10 ^3/uL (0-0.8); Monocytes # (auto) 0.6 10 ^3/uL (0-1.3)
[2023-08-27 07:26] LABS: Basophils % (auto) 0.2 % (0.0-2.0); Eosinophils % (auto) 1.4 % (0.0-7.0); Hematocrit 21.1 % (36.0-46.0); Lymphocytes # (auto) 0.9 10 ^3/uL (0.4-5.4); Mean Corpuscular Hemoglobin 29.9 pg (28.0-32.0); Mean Corpuscular Hgb Conc. 32.8 g/dL (32.0-36.0); Mean Corpuscular Volume 91.1 fL (80.0-100.0); Monocytes % (auto) 6.3 % (0.0-12.0); Neutrophils # (auto) 7.4 10 ^3/uL (1.6-8.6); Neutrophils % (auto) 82.1 % (37.0-80.0); Red Blood Cells 2.32 10^6/uL (4.0-5.20)
[2023-08-27 07:42] LABS: Hemoglobin 6.9 g/dL (12.2-16.2)
[2023-08-27 07:49] LABS: Alkaline Phosphatase 174 U/L (46-116); Anion Gap 8 (5-15); Aspartate Aminotransferase 17 U/L (13-40); BUN/Creatinine Ratio 5.3 (10.0-20.0); Blood Urea Nitrogen 37 mg/dL (9-23); Carbon Dioxide 25 mmol/L (20-30); Chloride 98 mmol/L (98-107); Glucose 153 mg/dL (74-106); Sodium 131 mmol/L (136-145)
[2023-08-27 07:50] LABS: Bilirubin, Total 0.3 mg/dL (0.2-1.0); Total Protein 6.4 g/dL (5.7-8.2)
[2023-08-27 08:07] LABS: Alanine Aminotransferase < 9 U/L (7-40)
[2023-08-27 08:12] LABS: Potassium 5.6 mmol/L (3.5-5.1)
[2023-08-27] MEDS: MIDAZOLAM DRIP 50 mg/50mL 50 ML IV SCH (08:30)
[2023-08-27] MEDS: ROCURONIUM 10MG/ML 10ML VIAL IV ONE ×2 (08:32→08:47)
[2023-08-27] MEDS: ETOMIDATE (2MG/ML) 20ML VIAL IV ONE ×2 (08:32→08:47)
[2023-08-27] MEDS ORDERED: CLOP75TA70 PO (08:43)
[2023-08-27] MEDS: MIDAZOLAM DRIP 50 mg/50mL 50 ML IV ONE (08:47)
[2023-08-27 09:50] LABS: Base Excess -7.1 mmol/L (-2.0-2.0)
[2023-08-27] MEDS: AZITHROMYCIN 500MG/ 250ML 250 ML IV ONE (10:07)
[2023-08-27] MEDS: PIPERACILLIN-TAZOB 3.375GM 100 ML IV ONE (10:09)
[2023-08-27] MEDS ORDERED: ACETAMINOPHEN 650 MG RECT SUPP PR PRN (11:30)
[2023-08-27] MEDS ORDERED: ONDANSETRON HCL 4 MG/2 ML VIAL IV PRN (11:30)
[2023-08-27] MEDS: levETIRAcetam 1000 mg/100ml 100 ML IV ONE (11:48)
[2023-08-27 11:49] LABS: Urine Bacteria FEW /hpf (None Seen); Urine Blood 2+ /uL (Negative); Urine Budding Yeast MODERATE /hpf (None Seen); Urine Clarity HAZY (Clear); Urine Color Yellow (Yellow); Urine Protein, UAD 2+ (Negative); Urine Specific Gravity 1.017 (1.001-1.035); Urine Urobilinogen Normal (Negative); Urine WBC 205 /hpf (0 - 5); Urine pH 6.5 (5.0-8.0)
[2023-08-27 11:50] LABS: Hematocrit 23.4 % (36.0-46.0); Hemoglobin 7.3 g/dL (12.2-16.2)
[2023-08-27 12:08] LABS: INR 1.05 (0.9-1.15)
[2023-08-27] MEDS: FUROSEMIDE 40 MG/4 ML VIAL IV ONE (13:37)
[2023-08-27] MEDS: NOREPINEPHRINE 8 MG/250ML KIT 250 ML IV ONE (13:39)
[2023-08-27] MEDS: NOREPINEPHRINE 8 MG/250ML KIT 250 ML IV SCH (13:45)
[2023-08-27 14:51] LABS: Base Excess 0.9 mmol/L (-2.0-2.0)
[2023-08-27] MEDS: CLOPIDOGREL BISULFATE 75 MG TAB PO ONE (15:20)
[2023-08-27] MEDS: ASPirin 81 mg TAB PO ONE (15:20)
[2023-08-27] MEDS: PROPOFOL 100 ML IV SCH (15:21)
[2023-08-27] MEDS: SODIUM CHL 0.9% 1000 ML BAG XX ONE (15:45)
[2023-08-27] MEDS ORDERED: FUROSEMIDE 40 MG/4 ML VIAL IV SCH (18:00)
[2023-08-27] MEDS: FUROSEMIDE 100 MG/10ML VIAL IV SCH (18:15)
[2023-08-27] MEDS: SODIUM ZIRCONIUM CYCL 10 GM PAK PO ONE (19:07)
[2023-08-27] MEDS ORDERED: DEXTROSE (50%) 50ML SYRG IV PRN (20:45)
[2023-08-27] MEDS ORDERED: LORazepam 2MG/ML-1ML VIAL IV PRN (21:15)
[2023-08-27] MEDS: EPOETIN ALFA-EPBX 10,000 UNIT/1ML VIAL SC ONE (21:17)
[2023-08-27] MEDS: PIPERACILLIN-TAZOB 3.375GM 100 ML IV SCH (21:23)
[2023-08-27] MEDS ORDERED: levETIRAcetam 1000 mg/100ml 100 ML IV SCH (22:00)
[2023-08-27] MEDS: InsuLIN REG 1unit/0.01ml Soln (100units/ml) SC SCH (23:29)
[2023-08-27] MEDS: ACCU-CHEK COMFORT CURVE STRIP VI SCH (23:29)
[2023-08-28] VITALS (109 sets, daily range): BP systolic 94–163; BP diastolic 45–66; PULSE 70–90; RESP 16–25; TEMP 97.8–98.4; O2SAT 96–100
[2023-08-28 04:45] LABS: Basophils # (auto) 0 10 ^3/uL (0-0.2); Basophils % (auto) 0.5 % (0.0-2.0); Eosinophils # (auto) 0.2 10 ^3/uL (0-0.8); Eosinophils % (auto) 1.8 % (0.0-7.0); Hematocrit 20.7 % (36.0-46.0); Lymphocytes % (auto) 11.7 % (10.0-50.0); Mean Corpuscular Hemoglobin 29.8 pg (28.0-32.0); Mean Corpuscular Hgb Conc. 32.9 g/dL (32.0-36.0); Mean Corpuscular Volume 90.5 fL (80.0-100.0); Monocytes # (auto) 0.6 10 ^3/uL (0-1.3); Neutrophils # (auto) 6.8 10 ^3/uL (1.6-8.6); Nucleated Red Blood Cells % 0.1 %; Red Blood Cells 2.29 10^6/uL (4.0-5.20); White Blood Cell 8.7 10^3/uL (4.4-10.8)
[2023-08-28 04:46] LABS: Hemoglobin 6.8 g/dL (12.2-16.2)
[2023-08-28 05:04] LABS: Albumin 3.5 g/dL (3.2-4.8); Alkaline Phosphatase 144 U/L (46-116); Anion Gap 10 (5-15); Aspartate Aminotransferase 16 U/L (13-40); BUN/Creatinine Ratio 5.2 (10.0-20.0); Blood Urea Nitrogen 40 mg/dL (9-23); Calcium 8.2 mg/dL (8.7-10.4); Carbon Dioxide 23 mmol/L (20-30); Chloride 96 mmol/L (98-107); Glucose 137 mg/dL (74-106); Magnesium 1.9 mg/dL (1.6-2.6); Potassium 5.5 mmol/L (3.5-5.1); Sodium 129 mmol/L (136-145)
[2023-08-28 05:05] LABS: Bilirubin, Total 0.2 mg/dL (0.2-1.0); Total Protein 5.9 g/dL (5.7-8.2)
[2023-08-28 05:16] LABS: Platelet Estimate Adequate
[2023-08-28 05:33] LABS: Alanine Aminotransferase < 9 U/L (7-40)
[2023-08-28] MEDS ORDERED: ALBUMIN 25% 100 ML IV PRN (06:00)
[2023-08-28] MEDS: SODIUM CHL 0.9% 1000 ML BAG XX ONE (06:29)
[2023-08-28] MEDS: ENOXAPARIN SOD 40 MG/0.4 ML SYRINGE SC SCH (09:56)
[2023-08-28] MEDS: PANTOPRAZOLE 40 MG/10 ML VIAL INJ IV SCH (09:56)
[2023-08-28] MEDS: ASPirin 81 mg TAB PO SCH (09:57)
[2023-08-28] MEDS: CLOPIDOGREL BISULFATE 75 MG TAB PO SCH (09:57)
[2023-08-28 10:14] LABS: Base Excess 2.7 mmol/L (-2.0-2.0)
[2023-08-28] MEDS: ERTAPENEM SOD INJ 0.5 GM in SODIUM CHL 0.9% 50 ML IV SCH (10:55)
[2023-08-28] MEDS: NOREPINEPHRINE 8 MG/250ML KIT 250 ML IV SCH (11:45)
[2023-08-28] MEDS: EPOETIN ALFA-EPBX 10,000 UNIT/1ML VIAL SC ONE (17:01)
[2023-08-29] VITALS (110 sets, daily range): BP systolic 88–160; BP diastolic 44–67; PULSE 57–92; RESP 13–24; TEMP 97.5–99.4; O2SAT 97–100
[2023-08-29 04:16] LABS: Basophils # (auto) 0 10 ^3/uL (0-0.2); Lymphocytes # (auto) 0.8 10 ^3/uL (0.4-5.4)
[2023-08-29 04:18] LABS: Basophils % (auto) 0.5 % (0.0-2.0); Eosinophils # (auto) 0.2 10 ^3/uL (0-0.8); Eosinophils % (auto) 2.4 % (0.0-7.0); Hematocrit 20.6 % (36.0-46.0); Lymphocytes % (auto) 13.3 % (10.0-50.0); Mean Corpuscular Hemoglobin 29.8 pg (28.0-32.0); Mean Corpuscular Hgb Conc. 32.8 g/dL (32.0-36.0); Mean Corpuscular Volume 90.8 fL (80.0-100.0); Monocytes # (auto) 0.5 10 ^3/uL (0-1.3); Monocytes % (auto) 8.5 % (0.0-12.0); Neutrophils # (auto) 4.7 10 ^3/uL (1.6-8.6); Neutrophils % (auto) 75.3 % (37.0-80.0); Nucleated Red Blood Cells % 0.2 %; Red Blood Cells 2.27 10^6/uL (4.0-5.20); Red Cell Distribution Width 17.7 % (11.8-14.3); White Blood Cell 6.3 10^3/uL (4.4-10.8)
[2023-08-29 04:25] LABS: Hemoglobin 6.8 g/dL (12.2-16.2)
[2023-08-29 04:26] LABS: Albumin 3.4 g/dL (3.2-4.8); Alkaline Phosphatase 137 U/L (46-116); Anion Gap 12 (5-15); Aspartate Aminotransferase 11 U/L (13-40); BUN/Creatinine Ratio 4.7 (10.0-20.0); Bilirubin, Total 0.3 mg/dL (0.2-1.0); Calcium 8.4 mg/dL (8.7-10.4); Carbon Dioxide 26 mmol/L (20-30); Chloride 99 mmol/L (98-107); Glucose 116 mg/dL (74-106); Potassium 3.6 mmol/L (3.5-5.1); Sodium 137 mmol/L (136-145); Total Protein 5.7 g/dL (5.7-8.2)
[2023-08-29 04:27] LABS: Alanine Aminotransferase < 9 U/L (7-40); Blood Urea Nitrogen 24 mg/dL (9-23)
[2023-08-29 05:02] LABS: Platelet Estimate Adequate
[2023-08-29] MEDS: SODIUM CHL 0.9% 1000 ML BAG XX ONE (07:00)
[2023-08-29 11:11] LABS: Base Excess 1.3 mmol/L (-2.0-2.0)
[2023-08-29] MEDS: EPOETIN ALFA-EPBX 10,000 UNIT/1ML VIAL SC ONE (21:24)
[2023-08-30] VITALS (109 sets, daily range): BP systolic 91–202; BP diastolic 40–86; PULSE 69–128; RESP 11–22; TEMP 97.8–98.9; O2SAT 97–100
[2023-08-30 04:32] LABS: Albumin 3.5 g/dL (3.2-4.8); Alkaline Phosphatase 141 U/L (46-116); Anion Gap 11 (5-15); Aspartate Aminotransferase 14 U/L (13-40); BUN/Creatinine Ratio 4.3 (10.0-20.0); Bilirubin, Total 0.3 mg/dL (0.2-1.0); Blood Urea Nitrogen 20 mg/dL (9-23); Calcium 8.7 mg/dL (8.5-10.1); Carbon Dioxide 26 mmol/L (20-30); Chloride 101 mmol/L (98-107); Glucose 103 mg/dL (74-106); Potassium 3.5 mmol/L (3.5-5.1); Sodium 138 mmol/L (136-145); Total Protein 5.9 g/dL (5.7-8.2)
[2023-08-30 04:34] LABS: Alanine Aminotransferase < 9 U/L (7-40)
[2023-08-30 04:52] LABS: White Blood Cell 7.2 10^3/uL (4.4-10.8)
[2023-08-30 04:54] LABS: Hematocrit 21.3 % (36.0-46.0); Mean Corpuscular Hemoglobin 28.9 pg (28.0-32.0); Mean Corpuscular Hgb Conc. 31.9 g/dL (32.0-36.0); Mean Corpuscular Volume 90.5 fL (80.0-100.0); Red Blood Cells 2.36 10^6/uL (4.0-5.20); Red Cell Distribution Width 17.1 % (11.8-14.3)
[2023-08-30 05:01] LABS: Hemoglobin 6.8 g/dL (12.2-16.2)
[2023-08-30 05:02] LABS: Band Neutrophils % (manual) 0; Basophils % (manual) 0 (0.0-2.0); Blast Cells 0; Promyelocytes % 0; Reactive Lymphocytes 0
[2023-08-30 06:29] LABS: Eosinophils % (manual) 4 (0-7); Lymphocytes % (manual) 15 (10.0-50.0); Metamyelocytes % 1; Monocytes % (manual) 10 (0-12); Myelocytes % 3
[2023-08-30 06:30] LABS: Platelet Estimate Adequate
[2023-08-30 16:57] LABS: Base Excess 1.6 mmol/L (-2.0-2.0)
[2023-08-30] MEDS: hydrALAZINE HCL 20 MG/ML VL IV PRN (17:36)
[2023-08-30] MEDS: EPINEPHrine HCL 0.5 ML NEB ONE (17:47)
[2023-08-30] MEDS: EPINEPHrine HCL 0.5 ML NEB NEB ONE ×2 (17:50→21:01)
[2023-08-30] MEDS: ALBUTEROL SULF 2.5 MG/0.5ML(0.5%) NEB SOLN NEB SCH (22:33)
[2023-08-30] MEDS: IPRATROPIUM BROM 0.5 MG/2.5ML INH SOL NEB SCH (22:33)
[2023-08-31] VITALS (101 sets, daily range): BP systolic 96–170; BP diastolic 49–72; PULSE 84–111; RESP 11–23; TEMP 98–99.7; O2SAT 94–100
[2023-08-31 04:29] LABS: Red Cell Distribution Width 16.8 % (11.8-14.3)
[2023-08-31 04:32] LABS: Hematocrit 21.3 % (36.0-46.0); Mean Corpuscular Hemoglobin 29.3 pg (28.0-32.0); White Blood Cell 9.7 10^3/uL (4.4-10.8)
[2023-08-31 04:44] LABS: Band Neutrophils % (manual) 0; Basophils % (manual) 0 (0.0-2.0); Blast Cells 0; Metamyelocytes % 0; Promyelocytes % 0; Reactive Lymphocytes 0
[2023-08-31 04:59] LABS: Alkaline Phosphatase 141 U/L (46-116); Anion Gap 14 (5-15); BUN/Creatinine Ratio 4.7 (10.0-20.0); Blood Urea Nitrogen 28 mg/dL (9-23); Calcium 8.7 mg/dL (8.7-10.4); Carbon Dioxide 25 mmol/L (20-30); Chloride 99 mmol/L (98-107); Glucose 174 mg/dL (74-106); Potassium 3.7 mmol/L (3.5-5.1); Sodium 138 mmol/L (136-145)
[2023-08-31 05:00] LABS: Magnesium 2.2 mg/dL (1.6-2.6)
[2023-08-31 05:01] LABS: Albumin 3.7 g/dL (3.2-4.8); Aspartate Aminotransferase 12 U/L (13-40); Bilirubin, Total 0.2 mg/dL (0.2-1.0)
[2023-08-31 05:02] LABS: Total Protein 6.4 g/dL (5.7-8.2)
[2023-08-31 05:16] LABS: Alanine Aminotransferase < 9 U/L (7-40)
[2023-08-31 06:49] LABS: Eosinophils % (manual) 1 (0-7); Lymphocytes % (manual) 6 (10.0-50.0); Monocytes % (manual) 8 (0-12); Myelocytes % 2; Platelet Estimate Adequate
[2023-08-31] MEDS: SODIUM CHL 0.9% 1000 ML BAG XX ONE (07:00)
[2023-08-31 07:31] LABS: Base Excess 1.1 mmol/L (-2.0-2.0)
[2023-08-31] MEDS ORDERED: CLINIMIX PER PHARMACY 0 ML IV SCH (15:15)
[2023-08-31] MEDS ORDERED: MORPHINE SULFATE INJ 2 MG/ml SYRG IV PRN (18:30)
[2023-08-31] MEDS: AMINO ACID INFUSION IN D10W 1,000 ML IV SCH (19:48)
[2023-08-31] MEDS: EPOETIN ALFA-EPBX 10,000 UNIT/1ML VIAL SC ONE (21:08)
[2023-09-01] VITALS (70 sets, daily range): BP systolic 119–176; BP diastolic 56–76; PULSE 68–116; RESP 11–28; TEMP 98–99.1; O2SAT 96–100
[2023-09-01 04:46] LABS: Alkaline Phosphatase 141 U/L (46-116); Anion Gap 11 (5-15); Aspartate Aminotransferase 11 U/L (13-40); BUN/Creatinine Ratio 4.4 (10.0-20.0); Blood Urea Nitrogen 20 mg/dL (9-23); Calcium 8.7 mg/dL (8.7-10.4); Carbon Dioxide 27 mmol/L (20-30); Chloride 100 mmol/L (98-107); Glucose 191 mg/dL (74-106); Potassium 3.4 mmol/L (3.5-5.1); Sodium 138 mmol/L (136-145)
[2023-09-01 04:47] LABS: Bilirubin, Total 0.3 mg/dL (0.2-1.0); Phosphorus 2.9 mg/dL (2.4-5.1); Total Protein 6.7 g/dL (5.7-8.2)
[2023-09-01 04:54] LABS: Alanine Aminotransferase < 9 U/L (7-40)
[2023-09-01] MEDS: ENOXAPARIN SOD 30 MG/0.3 ML SYRINGE SC SCH (08:48)
[2023-09-01] MEDS: POTASSIUM CHL 20MEQ/100ML 100 ML IV ONE (14:19)
[2023-09-01] MEDS ORDERED: DEXTROSE (50%) 50ML SYRG IV SCH (18:00)
[2023-09-01] MEDS: InsuLIN REG 1unit/0.01ml Soln (100units/ml) SC SCH (18:22)
[2023-09-01] MEDS: ACCU-CHEK COMFORT CURVE STRIP VI SCH (18:23)
[2023-09-02] VITALS (17 sets, daily range): BP systolic 104–139; BP diastolic 49–86; PULSE 98–118; RESP 16–20; TEMP 97.5–98.4; O2SAT 94–100
[2023-09-02] MEDS: SODIUM CHL 0.9% 1000 ML BAG XX ONE (07:00)
[2023-09-02 09:28] LABS: White Blood Cell 7.4 10^3/uL (4.4-10.8)
[2023-09-02 09:30] LABS: Hematocrit 22.5 % (36.0-46.0); Hemoglobin 7.2 g/dL (12.2-16.2); Mean Corpuscular Hemoglobin 28.7 pg (28.0-32.0); Mean Corpuscular Hgb Conc. 32.2 g/dL (32.0-36.0); Red Blood Cells 2.52 10^6/uL (4.0-5.20)
[2023-09-02 09:33] LABS: Band Neutrophils % (manual) 0; Basophils % (manual) 0 (0.0-2.0); Blast Cells 0; Metamyelocytes % 0; Promyelocytes % 0; Reactive Lymphocytes 0
[2023-09-02 09:48] LABS: Albumin 3.8 g/dL (3.2-4.8); Alkaline Phosphatase 123 U/L (46-116); Anion Gap 8 (5-15); Aspartate Aminotransferase 10 U/L (13-40); BUN/Creatinine Ratio 4.8 (10.0-20.0); Bilirubin, Total 0.2 mg/dL (0.2-1.0); Blood Urea Nitrogen 29 mg/dL (9-23); Calcium 9.3 mg/dL (8.5-10.1); Carbon Dioxide 28 mmol/L (20-30); Chloride 101 mmol/L (98-107); Glucose 213 mg/dL (74-106); Phosphorus 3.5 mg/dL (2.4-5.1); Potassium 3.1 mmol/L (3.5-5.1); Sodium 137 mmol/L (136-145); Total Protein 6.1 g/dL (5.7-8.2)
[2023-09-02 09:52] LABS: Alanine Aminotransferase < 9 U/L (7-40)
[2023-09-02 10:02] LABS: Magnesium 2.1 mg/dL (1.6-2.6)
[2023-09-02] MEDS: METOPROLOL TARTRATE 25 MG TAB PO ONE (12:11)
[2023-09-02 12:42] LABS: Eosinophils % (manual) 3 (0-7); Lymphocytes % (manual) 15 (10.0-50.0); Monocytes % (manual) 4 (0-12); Myelocytes % 1; Platelet Estimate Adequate
[2023-09-02] MEDS: POTASSIUM CHL 20MEQ/100ML 100 ML IV ONE (12:45)
[2023-09-02] MEDS: EPOETIN ALFA-EPBX 10,000 UNIT/1ML VIAL SC ONE (21:57)
[2023-09-02] MEDS: METOPROLOL TARTRATE 25 MG TAB PO SCH (22:11)
[2023-09-03] VITALS (17 sets, daily range): BP systolic 106–123; BP diastolic 46–63; PULSE 101–112; RESP 14–22; TEMP 98–99.7; O2SAT 92–100
[2023-09-03 07:19] LABS: Basophils # (auto) 0.1 10 ^3/uL (0-0.2); Basophils % (auto) 0.9 % (0.0-2.0); Eosinophils # (auto) 0.1 10 ^3/uL (0-0.8); Eosinophils % (auto) 1.5 % (0.0-7.0); Hematocrit 24.9 % (36.0-46.0); Lymphocytes # (auto) 1.1 10 ^3/uL (0.4-5.4); Lymphocytes % (auto) 13.4 % (10.0-50.0); Mean Corpuscular Hemoglobin 28.5 pg (28.0-32.0); Mean Corpuscular Hgb Conc. 32.1 g/dL (32.0-36.0); Mean Corpuscular Volume 88.8 fL (80.0-100.0); Monocytes # (auto) 0.6 10 ^3/uL (0-1.3); Monocytes % (auto) 7.9 % (0.0-12.0); Neutrophils % (auto) 76.3 % (37.0-80.0); Nucleated Red Blood Cells % 0.2 %; Red Blood Cells 2.81 10^6/uL (4.0-5.20); Red Cell Distribution Width 16.6 % (11.8-14.3); White Blood Cell 7.9 10^3/uL (4.4-10.8)
[2023-09-03 07:23] LABS: Alanine Aminotransferase < 9 U/L (7-40); Albumin 4.1 g/dL (3.2-4.8); Alkaline Phosphatase 129 U/L (46-116); Anion Gap 7 (5-15); Aspartate Aminotransferase 8 U/L (13-40); BUN/Creatinine Ratio 4.3 (10.0-20.0); Blood Urea Nitrogen 16 mg/dL (9-23); Calcium 9.3 mg/dL (8.7-10.4); Carbon Dioxide 29 mmol/L (20-30); Chloride 99 mmol/L (98-107); Glucose 266 mg/dL (74-106); Magnesium 1.9 mg/dL (1.6-2.6); Phosphorus 1.8 mg/dL (2.4-5.1); Potassium 3.5 mmol/L (3.5-5.1); Sodium 135 mmol/L (136-145)
[2023-09-03 07:24] LABS: Bilirubin, Total 0.3 mg/dL (0.2-1.0)
[2023-09-03] MEDS: POTASSIUM CHL 20MEQ/100ML 100 ML IV ONE (12:15)
[2023-09-03] MEDS: SODIUM PHOSPHATES 20 MEQ in SODIUM CHL 0.9% 100 ML IV ONE (18:53)
[2023-09-03] MEDS ORDERED: AMINO ACID INFUSION IN D10W 1,000 ML IV SCH (20:00)
[2023-09-03] MEDS: TEMAZEPAM 15 MG CAP PO ONE (23:59)
[2023-09-04] VITALS (19 sets, daily range): BP systolic 124–140; BP diastolic 55–65; PULSE 96–106; RESP 14–20; TEMP 97.4–98.4; O2SAT 94–100
[2023-09-04 06:43] LABS: Albumin 3.8 g/dL (3.2-4.8); Alkaline Phosphatase 121 U/L (46-116); Anion Gap 8 (5-15); Aspartate Aminotransferase 9 U/L (13-40); Calcium 9.1 mg/dL (8.7-10.4); Carbon Dioxide 25 mmol/L (20-30); Chloride 100 mmol/L (98-107); Glucose 249 mg/dL (74-106); Magnesium 1.8 mg/dL (1.6-2.6); Potassium 3.5 mmol/L (3.5-5.1); Sodium 133 mmol/L (136-145)
[2023-09-04 06:44] LABS: Bilirubin, Total 0.2 mg/dL (0.2-1.0); Phosphorus 1.7 mg/dL (2.4-5.1); Total Protein 6.4 g/dL (5.7-8.2)
[2023-09-04 06:45] LABS: Blood Urea Nitrogen 26 mg/dL (9-23)
[2023-09-04 06:46] LABS: Alanine Aminotransferase < 9 U/L (7-40)
[2023-09-04] MEDS: POTASSIUM PHOSPHATE 22 MEQ in SODIUM CHL 0.9% 100 ML IV ONE (18:07)
[2023-09-05] VITALS (12 sets, daily range): BP systolic 124–161; BP diastolic 56–68; PULSE 95–109; RESP 17–22; TEMP 97.3–98.2; O2SAT 98–100
[2023-09-05 05:29] LABS: Potassium 3.6 mmol/L (3.5-5.1)
[2023-09-05 05:31] LABS: Calcium 8.9 mg/dL (8.7-10.4)
[2023-09-05 05:33] LABS: Hematocrit 20.7 % (36.0-46.0)
[2023-09-05 05:35] LABS: BUN/Creatinine Ratio 6.3 (10.0-20.0)
[2023-09-05 05:36] LABS: Magnesium 1.6 mg/dL (1.6-2.6)
[2023-09-05 05:37] LABS: Albumin 3.6 g/dL (3.2-4.8); Phosphorus 1.8 mg/dL (2.4-5.1)
[2023-09-05 05:56] LABS: Hemoglobin 6.9 g/dL (12.2-16.2)
[2023-09-05] MEDS ORDERED: SODIUM CHL 0.9% 1000 ML BAG XX ONE (07:00)
[2023-09-05] MEDS ORDERED: ASPI1TAB20 PO (09:43)
[2023-09-05] MEDS ORDERED: LEVO500T91 PO (09:43)
[2023-09-05] MEDS ORDERED: METO25TA36 PO (09:43)
[2023-09-05] MEDS ORDERED: CLOP75TA28 PO (09:43)
[2023-09-05 09:55] LABS: Base Excess -3.4 mmol/L (-2.0-2.0)
[2023-09-05] MEDS ORDERED: EPOETIN ALFA-EPBX 10,000 UNIT/1ML VIAL SC ONE (21:00)
== END 2023-09-05 15:45 | disposition home or self-care (01) | DRG 871 ==
LOC: ER 04:26 → EDBD 04:26 → TELE 11:25 → ICU WEST 12:47 → TELE-CENTR 09-01 15:24
PROVIDERS: ADMIT Internal Medicine Geriatric Medicine; ATTEND Internal Medicine Geriatric Medicine
PROC: 0BH17EZ Insertion of Endotracheal Airway into Trachea, Via Natural or Artificial Opening (ICD-10-PCS; principal; 2023-08-27)
PROC: 5A1945Z Respiratory Ventilation, 24-96 Consecutive Hours (ICD-10-PCS; 2023-08-27)
PROC: 06HY33Z Insertion of Infusion Device into Lower Vein, Percutaneous Approach (ICD-10-PCS; 2023-08-27)
PROC: 5A1D70Z Performance of Urinary Filtration, Intermittent, Less than 6 Hours Per Day (ICD-10-PCS; 2023-08-28)
PROC: 5A1D70Z Performance of Urinary Filtration, Intermittent, Less than 6 Hours Per Day (ICD-10-PCS; 2023-08-29)
PROC: 5A09357 Assistance with Respiratory Ventilation, Less than 24 Consecutive Hours, Continuous Positive Airway Pressure (ICD-10-PCS; 2023-08-30)
PROC: 5A09357 Assistance with Respiratory Ventilation, Less than 24 Consecutive Hours, Continuous Positive Airway Pressure (ICD-10-PCS; 2023-08-31)
PROC: 5A1D70Z Performance of Urinary Filtration, Intermittent, Less than 6 Hours Per Day (ICD-10-PCS; 2023-08-31)
PROC: 5A1D70Z Performance of Urinary Filtration, Intermittent, Less than 6 Hours Per Day (ICD-10-PCS; 2023-09-02)
PROC: 5A1D70Z Performance of Urinary Filtration, Intermittent, Less than 6 Hours Per Day (ICD-10-PCS; 2023-09-05)
DX: A41.9 Sepsis, unspecified organism (principal); G92.8 Other toxic encephalopathy; J96.01 Acute respiratory failure with hypoxia; N18.6 End stage renal disease; R65.21 Severe sepsis with septic shock; I21.4 Non-ST elevation (NSTEMI) myocardial infarction; J15.5 Pneumonia due to Escherichia coli; I50.33 Acute on chronic diastolic (congestive) heart failure; D62 Acute posthemorrhagic anemia; E87.1 Hypo-osmolality and hyponatremia; E87.4 Mixed disorder of acid-base balance; I13.2 Hypertensive heart and chronic kidney disease with heart failure and with stage 5 chronic kidney disease, or end stage renal disease; N39.0 Urinary tract infection, site not specified; Z16.12 Extended spectrum beta lactamase (ESBL) resistance; D63.1 Anemia in chronic kidney disease; E11.22 Type 2 diabetes mellitus with diabetic chronic kidney disease; E11.65 Type 2 diabetes mellitus with hyperglycemia; E66.9 Obesity, unspecified; G40.901 Epilepsy, unspecified, not intractable, with status epilepticus; I25.10 Atherosclerotic heart disease of native coronary artery without angina pectoris; E87.5 Hyperkalemia; S09.90XA Unspecified injury of head, initial encounter; W18.39XA Other fall on same level, initial encounter; Z78.9 Other specified health status; Z79.02 Long term (current) use of antithrombotics/antiplatelets; Z79.4 Long term (current) use of insulin; Z79.82 Long term (current) use of aspirin; Z79.899 Other long term (current) drug therapy; Z99.2 Dependence on renal dialysis; Z83.3 Family history of diabetes mellitus; Z82.49 Family history of ischemic heart disease and other diseases of the circulatory system; Z83.42 Family history of familial hypercholesterolemia; Z86.74 Personal history of sudden cardiac arrest; Z95.5 Presence of coronary angioplasty implant and graft; Z68.32 Body mass index [BMI] 32.0-32.9, adult; Y93.89 Activity, other specified; Y92.89 Other specified places as the place of occurrence of the external cause; Y99.8 Other external cause status; Z95.1 Presence of aortocoronary bypass graft
CPT/HCPCS: 31500; 36415; 36556; 36600; 70450; 71045; 76604; 80053; 80069; 81001; 82805; 82962; 83605; 83735; 83880; 84100; 84132; 84484; 85007; 85014; 85018; 85025; 85027; 85610; 87070; 87077; 87081; 87086; 87088; 87186; 87205; 87340; 90935; 92610; 93005; 94002; 94003; 94640; 94660; 95819; 96365; 96367; 96368; 97110; 97116; 97163; 97530; 99291; C9113; G0378; J1335; J1642; J1815; J2250; J2543; J2704; J3480; J7060

== ENCOUNTER 2023-12-17 04:34 | Inpatient (IN) | payer OTHER, MEDICAID ==
[2023-12-17] VITALS (10 sets, daily range): BP systolic 150–183; BP diastolic 65–82; PULSE 69–87; RESP 12–16; TEMP 98.4; O2SAT 97–100
[~2023-12-17] VITALS: Ht 157.5 cm; Wt 75.2 kg
[~2023-12-17 04:34] MED LIST changes: +ASPI1TAB20 PO; -ATEN50TA PO; -CARI-277 PO; +CLOP75TA28 PO; +CLOP75TA70 PO; -DIPH25CA66 PO; -LACT10SO70 PO; +LEVO500T91 PO; +METO25TA36 PO; -OMEP-386 PO; -POTA10TA51 PO
[2023-12-17 05:04] LABS: Basophils # (auto) 0.1 10 ^3/uL (0-0.2); Basophils % (auto) 0.4 % (0.0-2.0); Eosinophils # (auto) 0.3 10 ^3/uL (0-0.8); Eosinophils % (auto) 1.6 % (0.0-7.0); Hematocrit 34.3 % (36.0-46.0); Hemoglobin 11.1 g/dL (12.2-16.2); Lymphocytes # (auto) 2.9 10 ^3/uL (0.4-5.4); Lymphocytes % (auto) 18.7 % (10.0-50.0); Mean Corpuscular Hemoglobin 29.4 pg (28.0-32.0); Mean Corpuscular Hgb Conc. 32.3 g/dL (32.0-36.0); Mean Corpuscular Volume 91.1 fL (80.0-100.0); Monocytes # (auto) 0.5 10 ^3/uL (0-1.3); Monocytes % (auto) 3.2 % (0.0-12.0); Neutrophils % (auto) 76.1 % (37.0-80.0); Nucleated Red Blood Cells % 0.1 %; Red Blood Cells 3.76 10^6/uL (4.0-5.20); Red Cell Distribution Width 16.8 % (11.8-14.3); White Blood Cell 15.7 10^3/uL (4.4-10.8)
[2023-12-17 05:20] LABS: INR 1.08 (0.9-1.15); Partial Thromboplastin Time 24.3 SEC (24.5-34.5); Prothrombin Time 11.4 sec (9.3-11.8)
[2023-12-17 05:23] LABS: Alanine Aminotransferase 75 U/L (7-40); Albumin 4.5 g/dL (3.2-4.8); Alkaline Phosphatase 183 U/L (46-116); Anion Gap 18 (5-15); Aspartate Aminotransferase 52 U/L (13-40); BUN/Creatinine Ratio 13.1 (10.0-20.0); Calcium 8.6 mg/dL (8.7-10.4); Carbon Dioxide 21 mmol/L (20-30); Chloride 105 mmol/L (98-107); Glucose 166 mg/dL (74-106); Magnesium 2.6 mg/dL (1.6-2.6); Sodium 144 mmol/L (136-145)
[2023-12-17 05:24] LABS: Bilirubin, Total 0.3 mg/dL (0.2-1.0)
[2023-12-17 05:26] LABS: Blood Urea Nitrogen 133 mg/dL (9-23); Potassium 5.9 mmol/L (3.5-5.1)
[2023-12-17] MEDS: ALBUTEROL SULF 2.5 MG/0.5ML(0.5%) NEB SOLN NEB ONE (07:50)
[2023-12-17] MEDS: SODIUM BICARB 8.4% 50Meq/50ml SYR INJ IV ONE (08:04)
[2023-12-17] MEDS: InsuLIN REG 1unit/0.01ml Soln (100units/ml) IV ONE (08:05)
[2023-12-17] MEDS: DEXTROSE (50%) 50ML SYRG IV ONE (08:16)
[2023-12-17] MEDS: cefTRIAXone 2GM/50ML D5W 50 ML IV ONE (08:17)
[2023-12-17] MEDS: LORazepam 2MG/ML-1ML VIAL IV ONE (10:11)
[2023-12-17] MEDS: AZITHROMYCIN 500MG/ 250ML 250 ML IV ONE (10:37)
[2023-12-17] MEDS ORDERED: NITROGLYCERIN 0.4 MG SL TAB SL PRN (10:45)
[2023-12-17] MEDS ORDERED: MORPHINE SULFATE INJ 2 MG/ml SYRG IV PRN (10:45)
[2023-12-17] MEDS ORDERED: DEXTROSE (50%) 50ML SYRG IV PRN (11:00)
[2023-12-17] MEDS: FUROSEMIDE 40 MG/4 ML VIAL IV ONE (11:07)
[2023-12-17] MEDS: InsuLIN REG 1unit/0.01ml Soln (100units/ml) SC SCH (12:15)
[2023-12-17] MEDS: ACCU-CHEK COMFORT CURVE STRIP VI SCH (12:15)
[2023-12-17 12:29] LABS: Chloride 105 mmol/L (98-107); Sodium 145 mmol/L (136-145)
[2023-12-17 12:30] LABS: Anion Gap 18 (5-15); Carbon Dioxide 22 mmol/L (20-30)
[2023-12-17 12:31] LABS: Calcium 8.2 mg/dL (8.5-10.1)
[2023-12-17] MEDS: ASPirin 81 mg TAB PO ONE (12:34)
[2023-12-17 12:35] LABS: BUN/Creatinine Ratio 12.8 (10.0-20.0); Glucose 126 mg/dL (74-106)
[2023-12-17] MEDS: SEVELAMER 800 MG TAB PO SCH (12:35)
[2023-12-17] MEDS: CLOPIDOGREL BISULFATE 75 MG TAB PO ONE (12:35)
[2023-12-17 12:36] LABS: Magnesium 2.4 mg/dL (1.6-2.6)
[2023-12-17 12:40] LABS: Blood Urea Nitrogen 132 mg/dL (9-23)
[2023-12-17 12:41] LABS: Potassium 6.5 mmol/L (3.5-5.1)
[2023-12-17] MEDS: GABAPENTIN 100 MG CAP PO SCH (14:00)
[2023-12-17] MEDS: CALCIUM ACETATE 667 MG CAP PO SCH (14:00)
[2023-12-17] MEDS: SODIUM CHL 0.9% 1000 ML BAG XX ONE (19:25)
[2023-12-17 19:57] LABS: Chloride 102 mmol/L (98-107); Potassium 4.5 mmol/L (3.5-5.1); Sodium 141 mmol/L (136-145)
[2023-12-17 19:58] LABS: Anion Gap 11 (5-15); Calcium 9.5 mg/dL (8.7-10.4); Carbon Dioxide 28 mmol/L (20-30)
[2023-12-17 20:03] LABS: BUN/Creatinine Ratio 8.6 (10.0-20.0); Glucose 87 mg/dL (74-106)
[2023-12-17 20:09] LABS: Blood Urea Nitrogen 53 mg/dL (9-23)
[2023-12-17] MEDS: hydrALAZINE HCL 20 MG/ML VL IV PRN (22:08)
[2023-12-17] MEDS: ATORVASTATIN 20 MG TAB PO SCH (22:14)
[2023-12-18] VITALS (8 sets, daily range): BP systolic 162–179; BP diastolic 67–86; PULSE 69–80; RESP 11–20; TEMP 97.4–97.9; O2SAT 98–100
[2023-12-18 08:47] LABS: Chloride 102 mmol/L (98-107)
[2023-12-18 08:48] LABS: Anion Gap 10 (5-15); Carbon Dioxide 29 mmol/L (20-30); Sodium 141 mmol/L (136-145)
[2023-12-18 08:49] LABS: Calcium 8.7 mg/dL (8.5-10.1)
[2023-12-18 08:54] LABS: BUN/Creatinine Ratio 9.7 (10.0-20.0); Glucose 108 mg/dL (74-106)
[2023-12-18 08:55] LABS: Blood Urea Nitrogen 71 mg/dL (9-23)
[2023-12-18 08:58] LABS: Potassium 5.8 mmol/L (3.5-5.1)
[2023-12-18] MEDS: PANTOPRAZOLE 40 MG TAB PO SCH (10:32)
[2023-12-18] MEDS: ASPirin 81 mg TAB PO SCH (10:33)
[2023-12-18] MEDS: CLOPIDOGREL BISULFATE 75 MG TAB PO SCH (10:33)
[2023-12-18] MEDS: METOPROLOL SUCCINATE XL 50 MG TAB PO SCH (10:34)
[2023-12-18] MEDS: SODIUM ZIRCONIUM CYCL 10 GM PAK PO ONE (12:00)
[2023-12-18] MEDS ORDERED: SODIUM CHL 0.9% 1000 ML BAG XX ONE (14:45)
[2023-12-18] MEDS: hydrALAZINE HCL 25 MG TAB PO ONE (23:13)
[2023-12-19] VITALS (7 sets, daily range): BP systolic 114–160; BP diastolic 61–71; PULSE 69–88; RESP 16–20; TEMP 97.1–97.9; O2SAT 97–100
[2023-12-19 05:49] LABS: Anion Gap 15 (5-15); Carbon Dioxide 23 mmol/L (20-30); Chloride 98 mmol/L (98-107); Potassium 5.1 mmol/L (3.5-5.1)
[2023-12-19 05:52] LABS: Sodium 136 mmol/L (136-145)
[2023-12-19 05:55] LABS: BUN/Creatinine Ratio 8.2 (10.0-20.0); Blood Urea Nitrogen 72 mg/dL (9-23); Glucose 156 mg/dL (74-106)
[2023-12-19] MEDS: ACETAMINOPHEN 325 MG TAB PO PRN (06:57)
[2023-12-19 09:50] LABS: Hepatitis B Surface Antigen Negative (Negative)
[2023-12-19 10:12] LABS: Hepatitis C Antibody Negative (Negative)
== END 2023-12-19 18:49 | disposition home or self-care (01) | DRG 177 ==
LOC: EDBD 04:34 → ER 04:34 → TELE 10:42 → ER 11:05 → TELE-CENTR 12-18 18:30
PROVIDERS: ADMIT Internal Medicine Geriatric Medicine; ATTEND Internal Medicine Geriatric Medicine
PROC: 5A09357 Assistance with Respiratory Ventilation, Less than 24 Consecutive Hours, Continuous Positive Airway Pressure (ICD-10-PCS; principal; 2023-12-17)
PROC: 5A1D70Z Performance of Urinary Filtration, Intermittent, Less than 6 Hours Per Day (ICD-10-PCS; 2023-12-17)
PROC: 5A1D70Z Performance of Urinary Filtration, Intermittent, Less than 6 Hours Per Day (ICD-10-PCS; 2023-12-19)
DX: J15.69 Pneumonia due to other Gram-negative bacteria (principal); I50.43 Acute on chronic combined systolic (congestive) and diastolic (congestive) heart failure; J96.01 Acute respiratory failure with hypoxia; N18.6 End stage renal disease; I13.2 Hypertensive heart and chronic kidney disease with heart failure and with stage 5 chronic kidney disease, or end stage renal disease; N25.81 Secondary hyperparathyroidism of renal origin; J15.9 Unspecified bacterial pneumonia; E87.5 Hyperkalemia; D63.1 Anemia in chronic kidney disease; E11.22 Type 2 diabetes mellitus with diabetic chronic kidney disease; E83.39 Other disorders of phosphorus metabolism; E78.5 Hyperlipidemia, unspecified; I25.10 Atherosclerotic heart disease of native coronary artery without angina pectoris; Z99.2 Dependence on renal dialysis; Z79.82 Long term (current) use of aspirin; Z79.02 Long term (current) use of antithrombotics/antiplatelets; Z91.199 Patient's noncompliance with other medical treatment and regimen due to unspecified reason; Z82.49 Family history of ischemic heart disease and other diseases of the circulatory system; Z83.3 Family history of diabetes mellitus
CPT/HCPCS: 36415; 36600; 71045; 80048; 80053; 82805; 82962; 83605; 83735; 83880; 84484; 85025; 85610; 85730; 86803; 87040; 87340; 90935; 93005; 94640; 94660; G0378; J1642; J1815

== ENCOUNTER 2024-05-17 18:38 | Emergency (ER) | payer OTHER, MEDICAID ==
[~2024-05-17] VITALS: Ht 160 cm; Wt 77.2 kg
[~2024-05-17 18:38] MED LIST changes: -LEVO500T91 PO
[2024-05-17 19:17] LABS: Basophils # (auto) 0.1 10 ^3/uL (0-0.2); Basophils % (auto) 0.6 % (0.0-2.0); Eosinophils # (auto) 0.1 10 ^3/uL (0-0.8); Eosinophils % (auto) 0.5 % (0.0-7.0); Hematocrit 29.1 % (36.0-46.0); Hemoglobin 9.3 g/dL (12.2-16.2); Lymphocytes # (auto) 1.2 10 ^3/uL (0.4-5.4); Lymphocytes % (auto) 11.1 % (10.0-50.0); Mean Corpuscular Hemoglobin 30.6 pg (28.0-32.0); Mean Corpuscular Hgb Conc. 31.9 g/dL (32.0-36.0); Mean Corpuscular Volume 95.7 fL (80.0-100.0); Monocytes # (auto) 0.8 10 ^3/uL (0-1.3); Monocytes % (auto) 6.8 % (0.0-12.0); Neutrophils # (auto) 9.1 10 ^3/uL (1.6-8.6); Platelet Count (auto) 276 10^3/uL (140-450); Red Blood Cells 3.04 10^6/uL (4.0-5.20); Red Cell Distribution Width 15.4 % (11.8-14.3); White Blood Cell 11.2 10^3/uL (4.4-10.8)
[2024-05-17 19:27] LABS: Chloride 97 mmol/L (98-107); Sodium 141 mmol/L (136-145)
[2024-05-17 19:28] LABS: Anion Gap 16 (5-15); Carbon Dioxide 28 mmol/L (20-31)
[2024-05-17 19:29] LABS: Calcium 8.1 mg/dL (8.7-10.4)
[2024-05-17 19:33] LABS: BUN/Creatinine Ratio 8.1 (10.0-20.0); Blood Urea Nitrogen 60 mg/dL (9-23); Glucose 194 mg/dL (74-106)
[2024-05-17 23:30] VITALS: PULSE 84; RESP 17; O2SAT 100
[2024-05-18] MEDS: cefTRIAXone 1GM/50ML D5W 50 ML IV ONE (02:08)
[2024-05-18] MEDS: metroNIDAZOLE 500MG/100ML 100 ML IV ONE (02:08)
[2024-05-18 02:59] LABS: COVID19 ANTIGEN SOFIA FIA NEGATIVE (NEGATIVE); Rapid Influenza A Negative (Negative); Rapid Influenza B Negative (Negative)
[2024-05-18 08:28] VITALS: PULSE 83; RESP 17; O2SAT 100
[2024-05-18 10:31] LABS: Alanine Aminotransferase 106 U/L (7-40); Albumin 4.5 g/dL (3.2-4.8); Alkaline Phosphatase 198 U/L (46-116); Anion Gap 14 (5-15); Aspartate Aminotransferase 54 U/L (13-40); BUN/Creatinine Ratio 8.8 (10.0-20.0); Bilirubin, Total 0.3 mg/dL (0.2-1.0); Calcium 8.3 mg/dL (8.7-10.4); Carbon Dioxide 28 mmol/L (20-31); Chloride 97 mmol/L (98-107); Glucose 168 mg/dL (74-106); Potassium 4.9 mmol/L (3.5-5.1); Sodium 139 mmol/L (136-145); Total Protein 7.6 g/dL (5.7-8.2)
[2024-05-18 10:33] LABS: Blood Urea Nitrogen 73 mg/dL (9-23)
[2024-05-18 13:28] VITALS: BP 106/46; PULSE 84; RESP 14; TEMP 98.3; O2SAT 100
== END 2024-05-18 03:40 | disposition short-term general hospital (02) ==
LOC: EDBD 18:38 → ER 18:38 → EDUNIT# 18:38 → ER 05-18 03:40
DX: I31.39 Other pericardial effusion (noninflammatory) (principal); D64.9 Anemia, unspecified; K80.21 Calculus of gallbladder without cholecystitis with obstruction; E11.22 Type 2 diabetes mellitus with diabetic chronic kidney disease; I12.0 Hypertensive chronic kidney disease with stage 5 chronic kidney disease or end stage renal disease; N18.6 End stage renal disease; N18.9 Chronic kidney disease, unspecified; I25.10 Atherosclerotic heart disease of native coronary artery without angina pectoris; E78.5 Hyperlipidemia, unspecified; I25.2 Old myocardial infarction; Z99.2 Dependence on renal dialysis; Z98.890 Other specified postprocedural states; Z79.82 Long term (current) use of aspirin; Z79.02 Long term (current) use of antithrombotics/antiplatelets; Z79.899 Other long term (current) drug therapy; Z20.822 Contact with and (suspected) exposure to COVID-19
CPT/HCPCS: 36415; 71045; 74176; 80048; 80053; 83880; 84484; 85025; 87426; 87804; 93005; 96365; 96368; 99291; J0696; J3490

== ENCOUNTER 2025-06-01 06:15 | Inpatient (IN) | payer OTHER, MEDICAID ==
[~2025-06-01] VITALS: Ht 165.1 cm; Wt 86.6 kg
--- NOTE | 2025-06-01 06:29 | ECG ---
[facility] Test Date: 2025-06-01 Test Time: 06:23:28 Pat Name: MANDIE WILSON Department: [facility] ED Room: 0215T Gender: F Store Warehouse Associate: ED : 1955 Requested By: CHELI HAMMOND Order Number: [id number] Reading MD: Paramjit Aguila Measurements Intervals [place] Rate: 61 P: 28 HI: 236 QRS: -61 QRSD: 145 T: 91 QT: 496 QTc: 500 Interpretive Statements Sinus rhythm Prolonged HI interval RBBB and LAFB Probable left ventricular hypertrophy Electronically Signed On 06-04-2025 15:41:45 PST by Paramjit Aguila Please click the below link to view image of tracing.
--- NOTE | 2025-06-01 06:41 | ED.PDOC ---
SOB-HPI HPI Comments 70 year old female with PMHx anemia, CKD, CHF, CKF, DM, ESRD, HLD, HTN, [place] presents to the ED via EMS with a chief complaint of shortness of breath onset today about 1 hour prior to ED arrival. Per EMS, patient woke up her son in law due to her experiencing shortness of breath. Son in law checked patient's O2 sat, was 62% on RA, 911 was called. Patient was placed on2L NC in route to ED, O2 improved to 99%. Patient is a dialysis patient, goes Saturday, , Saturday, recently has been going 4-5 times a week due to increased fluid. Upon ED arrival patient is hypertensive, BP 152/111. Patient is a poor historian. No other symptoms or modifying factors present at this time. 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 History Family History Family History: Unknown, Unobtainable Social History Smoker: Non-Smoker Alcohol: Denies ETOH Use Drugs: Denies Drug Use Lives In: Home Constitutional: denies: chills, diaphoresis, fatigue, fever, malaise, sweats, weakness, others EENTM: denies: blurred vision, double vision, ear bleeding, ear discharge, ear drainage, ear pain, ear ringing, eye pain, eye redness, hearing loss, mouth pain, mouth swelling, nasal discharge, nose bleeding, nose congestion, nose pain, photophobia, tearing, throat pain, throat swelling, voice changes, others Respiratory: reports: shortness of breath; denies: cough, hemoptysis, orthopnea, SOB at rest, SOB with excertion, stridor, wheezing, others Cardiovascular: denies: chest pain, dizzy spells, diaphoresis, Dyspnea on exertion, edema, irregular heart beat, left arm pain, lightheadedness, palpitations, PND, syncope, others Gastrointestinal: denies: abdomen distended, abdominal pain, blood streaked bowels, constipated, diarrhea, dysphagia, difficulty swallowing, hematemesis, melena, nausea, poor appetite, poor fluid intake, rectal bleeding, rectal pain, vomiting, others Genitourinary: denies: abnormal vagina bleeding, burning, dyspareunia, dysuria, flank pain, frequency, hematuria, incontinence, pain, , vagina discharge, urgency, others Neurological: denies: dizziness, fainting, headache, left sided numbness, left sided weakness, numbness, paresthesia, pre-existing deficit, right sided numbness, right sided weakness, seizure, speech problems, tingling, tremors, weakness, others Musculoskeletal: denies: back pain, gout, joint pain, joint swelling, muscle pain, muscle stiffness, neck pain, others Integumetry: denies: bruises, change in color, change in hair/nails, dryness, laceration, lesions, lumps, rash, wounds, others Allergic/Immunocompromised: denies: Difficulty Healing, Frequent Infections, Hives, Itching, others Hematologic/Lymphatic: denies: anemia, blood clots, easy bleeding, easy bruising, swollen glands, others Endocrine: denies: excessive hunger, excessive sweating, excessive thirst, excessive urination, flushing, intolerance to cold, intolerance to heat, unexplained weight gain, unexplained weight loss, others Psychiatric: denies: anxiety, bipolar disorder, depression, hopeless, panic disorder, schizophrenia, sleepless, suicidal, others All Other Systems: Reviewed and Negative Physical Exam General Appearance: Normal HEENT: Normal ENT Inspection, Pharynx Normal, TMs Normal Neck: Full Range of Motion, Non-Tender, Normal, Normal Inspection Respiratory: Chest Non-Tender, Lungs Clear, No Accessory Muscle Use, No Respiratory Distress, Normal Breath Sounds Cardiovascular: No Edema, No JVD, No Murmur, No Gallop, Normal Peripheral Pulses, Regular Rate/Rhythm Breast Exam: Deferred Gastrointestinal: No Organomegaly, Non Tender, No Pulsatile Mass, Normal Bowel Sounds, Soft Genitalia: Deferred Pelvic: Deferred Rectal: Deferred Extremities: No calf tenderness, Normal capillary refill, Normal inspection, Normal range of motion, Non-tender, No pedal edema Musculoskeletal : Apperance: Normal Neurologic: Alert, repair service dispatcher II-XII nml as Tested, No Motor Deficits, Normal Affect, Normal Mood, No Sensory Deficits Cerebellar Function: Normal Reflexes: Normal Skin: Dry, Normal Color, Warm Lymphatic: No Adenopathy Was a procedure done? Was a procedure done?: No Differential Dx Differential Diagnosis: CHF, COPD, Panic Attack, Pneumonia, Respiratory Distress, Sinusitis X-Ray, Labs, Meds, VS Vital Signs Date Time Temp Pulse Resp B/P (MAP) Pulse Ox O2 Delivery O2 Flow Rate FiO2 06/01/25 09:16 58 16 168/59 (95) 100 06/01/25 08:00 59 06/01/25 07:21 100 12 152/78 (102) 98 06/01/25 06:27 98.6 63 14 152/111 99 98.6 06/01/25 06:23 61 Lab Test 06/01/25 09:36 06/01/25 07:37 06/01/25 06:34 Range/Units Troponin I High Sensitivity 13 12 14 </=34 ng/L White Blood Count 7.0 4.4-10.8 10^3/uL Red Blood Count 4.07 4.0-5.20 10^6/uL Hemoglobin 13.1 12.2-16.2 g/dL Hematocrit 39.7 36.0-46.0 % Mean Corpuscular Volume 97.7 80.0-100.0 fL Mean Corpuscular Hemoglobin 32.3 H 28.0-32.0 pg Mean Corpuscular Hemoglobin Concent 33.1 32.0-36.0 g/dL Red Cell Distribution Width 14.8 H 11.8-14.3 % Platelet Count 229 140-450 10^3/uL Mean Platelet Volume 7.2 6.9-10.8 fL Neutrophils (%) (Auto) 69.1 37.0-80.0 % Lymphocytes (%) (Auto) 20.6 10.0-50.0 % Monocytes (%) (Auto) 7.9 0.0-12.0 % Eosinophils (%) (Auto) 1.8 0.0-7.0 % Basophils (%) (Auto) 0.6 0.0-2.0 % Neutrophils # (Auto) 4.8 1.6-8.6 10 ^3/uL Lymphocytes # (Auto) 1.4 0.4-5.4 10 ^3/uL Monocytes # (Auto) 0.5 0-1.3 10 ^3/uL Eosinophils # (Auto) 0.1 0-0.8 10 ^3/uL Basophils # (Auto) 0 0-0.2 10 ^3/uL Nucleated Red Blood Cells 0.1 % Sodium Level 133 L 136-145 mmol/L Potassium Level 7.3 *H 3.5-5.1 mmol/L Chloride Level 95 L 98-107 mmol/L Carbon Dioxide Level 21 20-31 mmol/L Anion Gap 17 H 5-15 Blood Urea Nitrogen 65 H 9-23 mg/dL Creatinine 11.87 *H 0.550-1.02 mg/dL Glomerular Filtration Rate Calc 3 >90 mL/min BUN/Creatinine Ratio 5.5 L 10.0-20.0 Serum Glucose 100 74-106 mg/dL Calcium Level 9.4 8.7-10.4 mg/dL B-Type Natriuretic Peptide 155.36 0-100 pg/mL [place] [address] Ph: [phone] DIAGNOSTIC IMAGING Diagnostic Imaging Report : [id number] Signed PATIENT: MANDIE WILSON GACCT: [id number] UNIT: [id number] : 1955 LOC: ER ROOM / BED: / AGE / SEX: 70 / F ADM STATUS: REG ER SERVICE 4 ORDERING PHYSICIAN: CHELI MCINTOSH MD PROCEDURE(s): CXRP - CHEST PORTABLE REASON: sob ORDER NUMBER(s): [id number], ACCESSION NUMBER(s): [id number] CHEST RADIOGRAPH Indication: sob Technique: Single frontal view of the chest was obtained Comparison: XY CHEST PORTABLE on DOS: 05/17/24, XY CHEST XRAY 1 VIEW on DOS: 12/17/23, XY CHEST PORTABLE on DOS: 08/31/23 FINDINGS: Lines and Tubes: None Lungs: No focal consolidation. Pleura: No effusion. No pneumothorax. Cardiomediastinal contours: Unremarkable Bones: No acute osseous abnormality. IMPRESSION: 1. No acute cardiopulmonary disease. ATED BY: JULI MORTON MD DICTATED DATE/TIME: 06/01/25 0704 SIGNED BY: JULI MORTON MD SIGNED DATE/TIME: 06/01/25 0704 CC: Time of 1ST Reevaluation: 06:55 Reevaluation 1ST: Unchanged Patient Education/Counseling: Diagnosis, Treatment, Prognosis Family Education/Counseling: No Family Present SEPSIS Sepsis Screen Date sepsis recognized/suspect: Jun 01, 2025 Time Sepsis recognized/suspect: 06 Recent Procedure: No On Antibiotic Therapy: No Respiratory Rate >20: No Heart Rate >90: No Temp<36 C (96.8 F) or >38.3 C: No SBP <90 or MAP <65 mmHG: No New Acute Mental Status Change: No Is the patient on CPAP, BIPAP,: No Physician Orders Urinalysis (06/01/25 06:25) Chest Portable (06/01/25 06:25) Electrocardigram (06/01/25 07:25) Electrocardigram (06/01/25 09:25) L Foot 2 View Xray (06/01/25 10:14) Calcium Ivpb (06/01/25 10:45) Sodium Bicarb 50meq/50ml Vial (06/01/25 10:45) Dextrose 50% Syringe (06/01/25 10:45) Insulin R (Human) (Insulin R) (06/01/25 10:45) Vital Signs Date Time Temp Pulse Resp B/P (MAP) Pulse Ox O2 Delivery O2 Flow Rate FiO2 06/01/25 09:16 58 16 168/59 (95) 100 06/01/25 08:00 59 06/01/25 07:21 100 12 152/78 (102) 98 06/01/25 06:27 98.6 63 14 152/111 99 98.6 06/01/25 06:23 61 Laboratory Tests Test 06/01/25 06:34 White Blood Count 7.0 10^3/uL (4.4-10.8) Departure 1 Departure Time of Disposition: 10:47 (Patient with a acute hyperkalemia. We will empirically cover patient with hyper K cocktail and we will admit patient for dialysis.) Impression: Primary Impression: Acute hyperkalemia Additional Impression: Acute dyspnea Disposition: ADMITTED INPATIENT Admit to: Tele Condition: Guarded Critical Care Note Critical Care Time?: Yes Critical care comment: Hyperkalemia Authorized and Performed by: Cheli Mcintosh MD Total critical care time: Approximately 38 minutes Due to a high probability of clinically significant, life threatening deterioration, the patient required my highest level of preparedness to inter vene emergently and I personally spent this critical care time directly and personally managing the patient. This critical care time included obtaining a history; examining the patient; pulse oximetry; ordering and review of studies; arranging urgent treatment with development of a management plan; evaluation of patient's response to treatment; frequent reassessment; and, discussions with other providers. This critical care time was performed to assess and manage the high probability of imminent, life-threatening deterioration that could result in multi-organ failure. It was exclusive of separately billable procedures and treating other patients and teaching time. Please see my other sections and the rest of the note for further information on patient assessment and treatment. Stability Stability form required: No Heart Score Heart Score: Heart Score Response (Comments) Value History N/A 0 EKG N/A 0 Age N/A 0 Risk Factors N/A 0 Troponin N/A 0 Total 0 I personally scribed for CHELI MCINTOSH MD ([email or web address]) on 06/01/25 at 06:41. El ectronically submitted by Grace Hare ([email or web address]). I personally scribed for CHELI MCNITOSH MD ([email or web address]) on 06/01/25 at 07:31. Elect ronically submitted by Grace Hare ([email or web address]). CHELI MCINTOSH MD Jun 01, 2025 06:41
[2025-06-01 06:55] LABS: Hematocrit 39.7 % (36.0-46.0); Hemoglobin 13.1 g/dL (12.2-16.2); Mean Corpuscular Hemoglobin 32.3 pg (28.0-32.0); Mean Corpuscular Volume 97.7 fL (80.0-100.0); Nucleated Red Blood Cells % 0.1 %
[2025-06-01 07:05] LABS: Anion Gap 17 (5-15); Calcium 9.4 mg/dL (8.7-10.4); Carbon Dioxide 21 mmol/L (20-31)
--- NOTE | 2025-06-01 07:07 | DVH ---
CHEST RADIOGRAPH Indication: sob Technique: Single frontal view of the chest was obtained Comparison: XY CHEST PORTABLE on DOS: 05/17/24, XY CHEST XRAY 1 VIEW on DOS: 12/17/23, XY CHEST PORTABLE on DOS: 08/31/23 FINDINGS: Lines and Tubes: None Lungs: No focal consolidation. Pleura: No effusion. No pneumothorax. Cardiomediastinal contours: Unremarkable Bones: No acute osseous abnormality. IMPRESSION: 1. No acute cardiopulmonary disease.
[2025-06-01 07:10] LABS: BUN/Creatinine Ratio 5.5 (10.0-20.0); Glucose 100 mg/dL (74-106)
[2025-06-01 07:33] LABS: Blood Urea Nitrogen 65 mg/dL (9-23); Chloride 95 mmol/L (98-107); Sodium 133 mmol/L (136-145)
[2025-06-01 07:36] LABS: Potassium 7.3 mmol/L (3.5-5.1)
[2025-06-01] MEDS: DEXTROSE (50%) 50ML SYRG IV ONE (11:06)
[2025-06-01] MEDS: SODIUM BICARB 8.4% 50Meq/50ml SYR Vial IV ONE (11:06)
[2025-06-01] MEDS: CALCIUM GLUC 1,000mg/50ml-NS 50 ML IV SCH (11:07)
[2025-06-01] MEDS: InsuLIN REG 1unit/0.01ml Soln (100units/ml) IV ONE (11:09)
--- NOTE | 2025-06-01 11:20 | DVH ---
EXAM: XY L FOOT 2 VIEW XRAY CLINICAL INDICATION: pain TECHNIQUE: XY L FOOT 2 VIEW XRAY Comparison: None FINDINGS/IMPRESSION: Nondisplaced fracture involving the 1st distal phalanx.
[2025-06-01] MEDS ORDERED: NITROGLYCERIN 0.4 MG SL TAB SL PRN (12:00)
[2025-06-01] MEDS ORDERED: ONDANSETRON HCL 4 MG/2 ML VIAL IV PRN (12:00)
[2025-06-01] MEDS ORDERED: MORPHINE SULFATE INJ 2 MG/ml SYRG IV PRN (12:00)
[2025-06-01] MEDS ORDERED: DEXTROSE (50%) 50ML SYRG IV PRN (12:15)
--- NOTE | 2025-06-01 12:27 | DVHHP2 ---
History of Present Illness Reason for Visit: Generalized weakness History of Present Illness Chuyita Herndon is a 70-year-old female with past medical history of ESRD on HD, recently been going 4 days a week due to fluid overload and non compliance with fluid restrictions, CHF, diabetes, hypertension, and hyperlipidemia, who came to the hospital for generalized weakness. Patient states she has been becoming weaker over the last couple of weeks with increased tremors and ataxia. She states she has been needing to go to HD 4 days a week due to fluid overload and has been experiencing intradialytic hypotension. She also had 2 falls yesterday. She states her legs just gave out on her. Denies any dizziness or loss of consciousness. Patient's potassium levels came back 7.3 while in the ER. I spoke with nephrology. They confirmed that she has been requiring HD 4 times a week and that she has been experiencing intradialytic hypotension. Recomindations is to discontinue the gabapentin, and they will do HD today for the elevated potassium levels. They also recommend a neurology consult for the tremors, falls, and ataxia. Cardiovascular: CHF, HTN, hyperipidemia Renal/: Chronic renal failure (on HD T,W,TH,SAT) Endocrine: Diabetes Past Surgical History: Appendectomy, Cholecystectomy Smoke: No ALCOHOL: none Drugs: None Lives: with Family Domestic Violence: Neg Review of Systems Constitutional: Yes: Weakness, Malaise; No: Fever, Chills, Sweats, Other Eyes: No: Pain, Vision change, Conjunctivae inflammation, Eyelid inflammation, Other, Redness ENT: No: Ear pain, Ear discharge, Nose pain, Nose discharge, Nose congestion, Mouth pain, Mouth swelling, Throat pain, Throat swelling, Other Respiratory: No: Cough, Dry, Shortness of breath, SOB with excertion, Wheezing, Hemoptysis, Pleuritic Pain, Sputum, Wheezing, Other Cardiovascular: No: Chest Pain, Palpitations, Orthopnea, Paroxysmal Noc. Dyspnea, Edema, Lt Headedness, Other Gastrointestinal: No: Nausea, Vomiting, Abdominal Pain, Diarrhea, Constipation, Melena, Hematochezia, Other Genitourinary: No Dysuria, No Frequency, No Incontinence, No Hematuria, No Retention, No Other Musculoskeletal: No: other, neck pain, shoulder pain, arm pain, back pain, hand pain, leg pain, foot pain Skin: No: Rash, Lesions, Jaundice, Bruising, Other Neurological: Weakness, Other (multiple falls, tremors, ataxia); No: Numbness, Incoordination, Change in speech, Confusion, Seizures Allergies: Coded Allergies: NO KNOWN ALLERGIES (Unverified , 07/05/22) Exam Vital Signs Vital Signs Date Time Temp Pulse Resp B/P (MAP) Pulse Ox O2 Delivery O2 Flow Rate FiO2 06/01/25 11:00 60 148/62 (90) 100 06/01/25 09:16 16 06/01/25 06:27 98.6 98.6 General Appearance: Alert, Oriented X3, Cooperative, moderate distress HEENT: Atraumatic, PERRLA, Mucous membr. moist/pink Respiratory: Other (Diminished breath sounds) Cardiovascular: Other (SR-SB) Abdominal: Normal bowel sounds, Soft, No tenderness, No hepatospenomegaly Extremities: No clubbing, No cyanosis, Other (left great toe swelling and bruise) Skin: No rashes, No breakdown, No significant lesion (brusie to left side of face) Neuro: Normal speech, Other (generalzied weakness, ataxia, tremors) Psych/Mental Status: Mental status NL Labs/Xrays Labs Test 06/01/25 11:07 06/01/25 09:36 06/01/25 06:34 Range/Units POC Glucose 90 70-106 mg/dl Troponin I High Sensitivity 13 </=34 ng/L White Blood Count 7.0 4.4-10.8 10^3/uL Red Blood Count 4.07 4.0-5.20 10^6/uL Hemoglobin 13.1 12.2-16.2 g/dL Hematocrit 39.7 36.0-46.0 % Mean Corpuscular Volume 97.7 80.0-100.0 fL Mean Corpuscular Hemoglobin 32.3 H 28.0-32.0 pg Mean Corpuscular Hemoglobin Concent 33.1 32.0-36.0 g/dL Red Cell Distribution Width 14.8 H 11.8-14.3 % Platelet Count 229 140-450 10^3/uL Mean Platelet Volume 7.2 6.9-10.8 fL Neutrophils (%) (Auto) 69.1 37.0-80.0 % Lymphocytes (%) (Auto) 20.6 10.0-50.0 % Monocytes (%) (Auto) 7.9 0.0-12.0 % Eosinophils (%) (Auto) 1.8 0.0-7.0 % Basophils (%) (Auto) 0.6 0.0-2.0 % Neutrophils # (Auto) 4.8 1.6-8.6 10 ^3/uL Lymphocytes # (Auto) 1.4 0.4-5.4 10 ^3/uL Monocytes # (Auto) 0.5 0-1.3 10 ^3/uL Eosinophils # (Auto) 0.1 0-0.8 10 ^3/uL Basophils # (Auto) 0 0-0.2 10 ^3/uL Nucleated Red Blood Cells 0.1 % Sodium Level 133 L 136-145 mmol/L Potassium Level 7.3 *H 3.5-5.1 mmol/L Chloride Level 95 L 98-107 mmol/L Carbon Dioxide Level 21 20-31 mmol/L Anion Gap 17 H 5-15 Blood Urea Nitrogen 65 H 9-23 mg/dL Creatinine 11.87 *H 0.550-1.02 mg/dL Glomerular Filtration Rate Calc 3 >90 mL/min BUN/Creatinine Ratio 5.5 L 10.0-20.0 Serum Glucose 100 74-106 mg/dL Calcium Level 9.4 8.7-10.4 mg/dL B-Type Natriuretic Peptide 155.36 0-100 pg/mL CHEST RADIOGRAPH FINDINGS: Lines and Tubes: None Lungs: No focal consolidation. Pleura: No effusion. No pneumothorax. Cardiomediastinal contours: Unremarkable Bones: No acute osseous abnormality. IMPRESSION: 1. No acute cardiopulmonary disease. EXAM: XY L FOOT 2 VIEW XRAY FINDINGS/IMPRESSION: Nondisplaced fracture involving the 1st distal phalanx. SEPSIS Sepsis Screen Date sepsis recognized/suspect: Jun 01, 2025 Time Sepsis recognized/suspect: 0756 Recent Procedure: No On Antibiotic Therapy: No Respiratory Rate >20: Yes Heart Rate >90: No Temp<36 C (96.8 F) or >38.3 C: No SBP <90 or MAP <65 mmHG: No New Acute Mental Status Change: No Is the patient on CPAP, BIPAP,: No Physician Orders Urinalysis (06/01/25 06:25) Chest Portable (06/01/25 06:25) Electrocardigram (06/01/25 07:25) Electrocardigram (06/01/25 09:25) L Foot 2 View Xray (06/01/25 10:14) *Dr. Alexus Alba (06/01/25 11:15) Admit (06/01/25 11:50) Code Status (06/01/25 11:50) Renal Standard(2gna,3gk,Lopho) (06/01/25 Lunch) Sodium Chloride Lock (Saline Lock Ns) (06/01/25 14:00) Hydrocodone-Acet 5/325mg Tab ([place] 5/32 (06/01/25 12:00) Ondansetron Hcl (Zofran) (06/01/25 12:00) Docusate Sodium Capsule (Colace Capsule) (06/01/25 12:00) Fall Risk Precautions In Place QSHIFT (06/01/25 11:50) Complete Blood Count (06/02/25 04:00) Comprehensive Metabolic Panel (06/02/25 04:00) Pt Request For Service (06/01/25 11:50) Condition: Serious (06/01/25 11:50) Acetaminophen Tablet (Tylenol Tablet) (06/01/25 12:00) Nitroglycerin Sublingual (Ntrostat Subli (06/01/25 12:00) Morphine Sulfate Injection (06/01/25 12:00) Stat Ekg For Chest Pain (06/01/25 11:50) Notify Md Of Changes From Base (06/01/25 11:50) Director Outcomes For 24 Hours (06/01/25 11:50) Emergency Dysrhythmia Protocol (06/01/25 11:50) Rhythm Strips Once Every Shift (06/01/25 11:50) Oxygen By Nasal Cannula (06/01/25 11:50) (Nf) Atorvastatin Calcium (06/02/25 10:00) (Nf) Sevelamer Carbonate (06/01/25 14:00) Vital Signs Date Time Temp Pulse Resp B/P (MAP) Pulse Ox O2 Delivery O2 Flow Rate FiO2 06/01/25 11:00 60 148/62 (90) 100 06/01/25 09:16 58 16 168/59 (95) 100 06/01/25 08:00 59 06/01/25 07:21 100 12 152/78 (102) 98 11/11/25 06:27 98.6 63 14 152/111 99 98.6 06/01/25 06:23 61 Laboratory Tests Test 06/01/25 06:34 White Blood Count 7.0 10^3/uL (4.4-10.8) Medications Medications Dose Ordered Sig/Haylie Route Start Time Stop Time Status Last Admin Dose Admin Calcium Gluconate/ Sodium Chloride 50 ml @ 100 mls/hr Q30M IV 06/01/25 10:45 06/01/25 11:44 DC 06/01/25 11:29 100 MLS/HR Dextrose 50 ml ONCE ONCE IV 06/01/25 10:45 06/01/25 10:52 DC 06/01/25 11:06 50 ML Insulin Human Regular 10 units ONCE ONCE IV 06/01/25 10:45 06/01/25 10:52 DC 06/01/25 11:09 10 UNITS Sodium Bicarbonate 100 ml ONCE ONCE IV 06/01/25 10:45 06/01/25 10:52 DC 06/01/25 11:06 100 ML Assessment/Plan Assessment/Plan Assessment: Acute hyperkalemia, Ataxia, Tremors, Intradialytic hypotension, UTI, ESRD on HD, Fluid overload, Fracture of 1st distal phalanx, CHF, Diabetes, Hypertension, Hyperlipidemia, Plan: Admit to Tele, Nephrology consult, Consider neurology consult, Hyperkalemia protocol, IV antibiotics, Fluid restrictions, Daily weight, Home medications reconciled, Home gabapentin stopped, and metoprolol held due to bradycardia and hypotension, Plan discussed with: Patient My Orders Orders - YAMILETH REARDON [employer] Procedure Category Date Status Time *Dr. Alexus Schuler -Da CONS 06/01/25 Transmitted Anjali 11:15 Admit ADMIT 06/01/25 Transmitted 11:50 Code Status CODE 06/01/25 Transmitted 11:50 Renal DIET 06/01/25 Verified Standard(2gna,3gk,Lopho) Lunch Sodium Chloride Lock PHA 06/01/25 Verified (Saline Lock Ns) 14:00 Hydrocodone-Acet PHA 06/01/25 Verified 5/325mg Tab ([place] 12:00 Ondansetron Hcl PHA 06/01/25 Verified (Zofran) 12:00 Docusate Sodium PHA 06/01/25 Verified Capsule (Colace 12:00 Fall Risk Precautions HAI 06/01/[address] 11:50 Complete Blood Count LAB 06/02/25 Verified 04:00 Comprehensive LAB 06/02/25 Verified Metabolic Panel 04:00 Pt Request For Service PT 06/01/25 Verified 11:50 Condition: Serious [facility] 06/01/25 Verified 11:50 Acetaminophen Tablet [facility] 06/01/25 Verified (Tylenol Tablet) 12:00 Nitroglycerin [facility] 06/01/25 Verified Sublingual (Ntrostat 12:00 Morphine Sulfate [facility] 06/01/25 Verified Injection 12:00 Stat Ekg For Chest [facility] 06/01/25 Verified Pain 11:50 Notify Md Of Changes [facility] 06/01/25 Verified From Base 11:50 Director Outcomes For [facility] 06/01/25 Verified 24 Hours 11:50 Emergency Dysrhythmia [facility] 06/01/25 Verified Protocol 11:50 Rhythm Strips Once [facility] 06/01/25 Verified Every Shift 11:50 Oxygen By Nasal RT 06/01/25 Verified Cannula 11:50 (Nf) Atorvastatin PHA 06/02/25 Verified Calcium 10:00 (Nf) Sevelamer [facility] 06/01/25 Verified Carbonate 14:00 Date of Service: Jun 01, 2025 Billing Provider: YAMILETH REARDON Common Visit Codes: [id number] INP/OBS CARE (HIGH) YAMILETH REARDON Jun 01, 2025 12:27
[2025-06-01] MEDS: SODIUM CHL 0.9% 1000 ML BAG XX ONE (13:22)
--- NOTE | 2025-06-01 13:58 | DVHINCON2 ---
Date of service: Jun 01, 2025 Referring Physician SANTOS Loyd. Reason for Consultation Hyperkalemia, end-stage renal disease. History of Present Illness 70-year-old patient with significant history of end-stage renal disease on hemodialysis via right forearm AV fistula on TTS schedule with last dialysis on Saturday, hypertension, diabetes type 2, CAD, hyperlipidemia, history of noncompliance with fluid intake and diet and medications who has required extra dialysis due to fluid overload who presents to the hospital with rather sudden severe generalized weakness best described as my legs could not hold my weight associated with increased tremors and ataxia. Patient does not know what medication she takes at home. She also has had some intra dialytic hypotension and fell twice yesterday. She denies fever chills nausea vomiting or diarrhea. On admission laboratory data revealed hyperkalemia, laboratory findings consis tent with end-stage renal disease. Past Medical History Diabetes type 2, CAD, CHF, hypertension, end-stage renal disease. Past Surgical History Av fistula creation. Allergies: Coded Allergies: NO KNOWN ALLERGIES (Unverified , 07/05/22) Home Meds Active Scripts Clopidogrel Bisulfate (Plavix) 75 Mg Tab, 1 TAB PO DAILY, #30 TAB 0 Refills Prov:MARLENE CHRISTIANSON MD 09/05/23 Aspirin (Aspir-81) 81 Mg Tab, 1 TAB PO DAILY, #90 TAB 0 Refills Prov:MARLENE CHRISTIANSON MD 09/05/23 Metoprolol Succinate (Toprol Xl) 25 Mg Tab, 1 TAB PO DAILY, #30 TAB 0 Refills Prov:MARLENE CHRISTIANSON MD 09/05/23 Pantoprazole Sodium Sesquihydr (Protonix) 40 Mg Tab, 40 MG PO DAILY, #30 TAB Prov:MARLENE CHRISTIANSON MD 07/11/22 Reported Medications Clopidogrel Bisulfate (CLOPIDOGREL) 75 Mg Tab, 1 TAB PO DAILY 08/27/23 Insulin Glargine (Lantus Solostar) 100 Unit/Ml Inj, SC 08/21/23 Gabapentin (Gabapentin) 100 Mg Cap, 1 CAP PO TID 08/21/23 Calcium Acetate (Phosphate Bin (Calcium Acetate) 667 Mg Cap, 2 CAP PO TID 07/05/22 Atorvastatin Calcium (ATORVASTATIN CALCIUM) 40 Mg Tab, 40 TAB PO DAILY 07/05/22 Sevelamer Carbonate (Sevelamer Carbonate) 800 Mg Tab, 800 TAB PO Q8HR PRN 07/05/22 Current Medications Current Medications Medications (Trade) Dose Ordered Sig/Haylie Route PRN Reason Start Time Stop Time Status Last Admin Calcium Gluconate/ Sodium Chloride 50 ml @ 100 mls/hr Q30M IV 06/01/25 10:45 06/01/25 11:44 DC 06/01/25 11:29 Sodium Chloride (Saline Lock Ns) 10 ml Q8HR IV 06/01/25 14:00 Acetaminophen/ Hydrocodone Bitart ([place] 5/325MG Tab) 1 tab Q4HP PRN PO MODERATE PAIN (4-6 PAIN SCALE) 06/01/25 12:00 Ondansetron HCl (Zofran) 4 mg Q4HP PRN IV NAUSEA / VOMITING 06/01/25 12:00 Docusate Sodium (Colace Capsule) 100 mg BIDPRN PRN PO FOR CONSTIPATION 06/01/25 12:00 Acetaminophen (Tylenol Tablet) 650 mg Q6HP PRN PO PAIN SCALE 1-3 OR TEMP>100.4 06/01/25 12:00 Nitroglycerin (Ntrostat Sublingual) 0.4 mg Q5MINP PRN SL FOR CHEST PAIN 06/01/25 12:00 Morphine Sulfate 2 mg Q30M PRN IV FOR CHEST PAIN 06/01/25 12:00 Atorvastatin Calcium (Lipitor) 40 mg HS PO 06/01/25 22:00 Sevelamer HCl (Renagel) 800 mg TIDWM PO 06/01/25 18:00 Diagnostic Test (Pha) (Accu-Chek Comfort Curve T) 1 strip ACHS 06/01/25 17:00 Insulin Human Regular (InsuLIN R) HS SC 06/01/25 22:00 Insulin Human Regular (InsuLIN R) AC SC 06/01/25 17:00 Dextrose 50 ml UD PRN IV Blood Sugar LESS THAN 60 06/01/25 12:15 Family History: Diabetes mellitus G8 MOTHER, Onset:Unknown G8 FATHER Hypercholesterolemia G8 MOTHER G8 FATHER Hypertension G8 MOTHER G8 FATHER Non-contributory 19 CHILD, Name: Roseann (No Known medical HX), Onset:Unknown 19 CHILD, Name: Suzanne (No known medical Hx), Onset:Unknown G8 FATHER, Onset:Unknown Social History Denies smoking alcohol or drug abuse. Review of Systems HEENT: Oral mucosa dry Neck no JVD Cardiovascular: Denies for chest pain denies orthopnea or PND Respiratory: Diminished lung sounds bilaterally Gastrointestinal: Denies for nausea vomiting Musculoskeletal: Denies myalgias Neurological: Denies focal weakness Dermatological: Denies any rash The rest of the review of systems were reviewed pertinent positives and pertinent negatives are as per HPI up to 12 points review of systems H&P Exam Vital Signs/I&O Vital Sign Date Time Temp Pulse Resp B/P (MAP) Pulse Ox O2 Delivery O2 Flow Rate FiO2 06/01/25 13:19 64 11 121/40 (67) 96 06/01/25 06:27 98.6 98.6 Physical Exam HEENT: No evidence of JVD, no oral ulcers. Trace edema noticed in the face Pulmonary: Lungs are clear on auscultation bilaterally Cardiovascular S1-S2, no S3 or S4 Abdomen: Bowel sounds positive, soft no rebound tenderness Skin: No rash Neurological: Alert, oriented, no focal weakness Labs/Diagnostic Data Labs/Diagnostic Data Laboratory Tests Test 06/01/25 11:07 06/01/25 09:36 06/01/25 07:37 06/01/25 06:34 Range/Units POC Glucose 90 70-106 mg/dl Troponin I High Sensitivity 13 12 14 </=34 ng/L White Blood Count 7.0 4.4-10.8 10^3/uL Red Blood Count 4.07 4.0-5.20 10^6/uL Hemoglobin 13.1 12.2-16.2 g/dL Hematocrit 39.7 36.0-46.0 % Mean Corpuscular Volume 97.7 80.0-100.0 fL Mean Corpuscular Hemoglobin 32.3 H 28.0-32.0 pg Mean Corpuscular Hemoglobin Concent 33.1 32.0-36.0 g/dL Red Cell Distribution Width 14.8 H 11.8-14.3 % Platelet Count 229 140-450 10^3/uL Mean Platelet Volume 7.2 6.9-10.8 fL Neutrophils (%) (Auto) 69.1 37.0-80.0 % Lymphocytes (%) (Auto) 20.6 10.0-50.0 % Monocytes (%) (Auto) 7.9 0.0-12.0 % Eosinophils (%) (Auto) 1.8 0.0-7.0 % Basophils (%) (Auto) 0.6 0.0-2.0 % Neutrophils # (Auto) 4.8 1.6-8.6 10 ^3/uL Lymphocytes # (Auto) 1.4 0.4-5.4 10 ^3/uL Monocytes # (Auto) 0.5 0-1.3 10 ^3/uL Eosinophils # (Auto) 0.1 0-0.8 10 ^3/uL Basophils # (Auto) 0 0-0.2 10 ^3/uL Nucleated Red Blood Cells 0.1 % Sodium Level 133 L 136-145 mmol/L Potassium Level 7.3 *H 3.5-5.1 mmol/L Chloride Level 95 L 98-107 mmol/L Carbon Dioxide Level 21 20-31 mmol/L Anion Gap 17 H 5-15 Blood Urea Nitrogen 65 H 9-23 mg/dL Creatinine 11.87 *H 0.550-1.02 mg/dL Glomerular Filtration Rate Calc 3 >90 mL/min BUN/Creatinine Ratio 5.5 L 10.0-20.0 Serum Glucose 100 74-106 mg/dL Calcium Level 9.4 8.7-10.4 mg/dL B-Type Natriuretic Peptide 155.36 0-100 pg/mL No significant abnormality Assessment Assessment: 1. End-stage renal disease on hemodialysis TTS via AV fistula 2. Hyperkalemia 3. Fluid overload 4. Hypertension 5. Diabetes type 2 6. CAD 7. CHF Plan: Stat dialysis today We will repeat dialysis tomorrow for additional UF in view of the history of intra dialytic hypotension Discontinue gabapentin upon discharge. This was emphasized today to the patient Low-potassium, renal diet Fluid restriction less than 1 L per day Guilherme for goal hemoglobin 10 to 11 grams/deciliter Continue phosphate binders Continue midodrine p.r.n. Thank you very much for allowing us to participate in the care of this patient please contact if you have any questions. Plan discussed with: Patient GERMAINE BO MD Jun 01, 2025 13:58
[2025-06-01] MEDS: ALBUMIN 5% 250 ML IV ONE ×2 (14:36→14:52)
[2025-06-01] MEDS: SODIUM CHLOR 0.9% PF (SALINE LOCK) 10ML VIAL/SYR IV SCH (14:57)
[2025-06-01] MEDS: InsuLIN REG 1unit/0.01ml Soln (100units/ml) SC SCH ×2 (17:00→21:02)
[2025-06-01] MEDS: ACCU-CHEK COMFORT CURVE STRIP VI SCH (17:17)
[2025-06-01] MEDS: SEVELAMER 800 MG TAB PO SCH (18:00)
[2025-06-01 18:11] LABS: Hematocrit 37.5 % (36.0-46.0); Hemoglobin 12.5 g/dL (12.2-16.2)
[2025-06-01 19:51] VITALS: PULSE 74; RESP 18; O2SAT 97
[2025-06-01] MEDS: ATORVASTATIN 20 MG TAB PO SCH (20:45)
[2025-06-01] MEDS: HYDROcodone-ACET 5/325MG TAB PO PRN (23:09)
[2025-06-02] VITALS (8 sets, daily range): BP systolic 89–112; BP diastolic 50–66; PULSE 61–92; RESP 14–19; TEMP 97.6–98.3; O2SAT 91–96
[2025-06-02 06:49] LABS: Hematocrit 34.2 % (36.0-46.0); Hemoglobin 11.4 g/dL (12.2-16.2); Mean Corpuscular Hemoglobin 31.8 pg (28.0-32.0); Mean Corpuscular Volume 95.8 fL (80.0-100.0); Nucleated Red Blood Cells % 0.2 %
[2025-06-02 06:56] LABS: Alanine Aminotransferase 16 U/L (7-40); Albumin 4.7 g/dL (3.2-4.8); Alkaline Phosphatase 59 U/L (46-116); Anion Gap 17 (5-15); BUN/Creatinine Ratio 6.3 (10.0-20.0); Calcium 9.4 mg/dL (8.7-10.4); Carbon Dioxide 28 mmol/L (20-31); Sodium 139 mmol/L (136-145); Total Protein 7.2 g/dL (5.7-8.2)
[2025-06-02 06:57] LABS: Bilirubin, Total 0.2 mg/dL (0.2-1.0); Blood Urea Nitrogen 58 mg/dL (9-23); Chloride 94 mmol/L (98-107); Glucose 73 mg/dL (74-106)
[2025-06-02 07:02] LABS: Potassium 5.8 mmol/L (3.5-5.1)
[2025-06-02 08:34] LABS: Urine Protein, UAD 2+ (Negative)
[2025-06-02] MEDS: ACETAMINOPHEN 325 MG TAB PO PRN (08:52)
--- NOTE | 2025-06-02 13:12 | DVHPN2 ---
Reviewed: Care Plan, H&P, Labs, Medications, Previous Orders, Radiology Changes from previous H/P or p: No Changes Eyes: No Pain, No Vision change, No Conjunctivae inflammation, No Eyelid inflammation, No Other, No Redness ENT: No Ear pain, No Ear discharge, No Nose pain, No Nose discharge, No Nose congestion, No Mouth pain, No Mouth swelling, No Throat pain, No Throat swelling, No Other Cardiovascular: No Chest Pain, No Palpitations, No Orthopnea, No Paroxysmal Noc. Dyspnea, No Edema, No Lt Headedness, No Other Respiratory: No Cough, No Dry, No Shortness of breath, No SOB with excertion, No Wheezing, No Hemoptysis, No Pleuritic Pain, No Sputum, No Other Gastrointestinal: No Nausea, No Vomiting, No Abdominal Pain, No Diarrhea, No Constipation, No Melena, No Hematochezia, No Other Genitourinary: No Dysuria, No Frequency, No Incontinence, No Hematuria, No Retention, No Other Musculoskeletal: No other, No neck pain, No shoulder pain, No arm pain, No back pain, No hand pain, No leg pain, No foot pain Skin: No Rash, No Lesions, No Jaundice, No Bruising, No Other Objective Vitals Vital Signs Date Time Temp Pulse Resp B/P (MAP) Pulse Ox O2 Delivery O2 Flow Rate FiO2 06/02/25 12:31 97.6 92 19 89/50 (63) 91 97.6 06/02/25 00:41 Room Air* 0 21 Intake/Output Intake and Output 06/02/25 07:00 Intake Total 0 ml Output Total 0 ml Balance 0 ml Intake Oral 0 ml Output Urine Total 0 ml Stool Total 0 ml Medications Current Medications Medications Dose Ordered Sig/Haylie Route Start Time Stop Time Status Last Admin Dose Admin Sodium Chloride 10 ml Q8HR IV 06/01/25 14:00 06/02/25 06:24 10 ML Acetaminophen/ Hydrocodone Bitart 1 tab Q4HP PRN PO 06/01/25 12:00 06/02/25 05:15 1 TAB Ondansetron HCl 4 mg Q4HP PRN IV 06/01/25 12:00 Docusate Sodium 100 mg BIDPRN PRN PO 06/01/25 12:00 Acetaminophen 650 mg Q6HP PRN PO 06/01/25 12:00 06/02/25 08:52 650 MG Nitroglycerin 0.4 mg Q5MINP PRN SL 06/01/25 12:00 Morphine Sulfate 2 mg Q30M PRN IV 06/01/25 12:00 Atorvastatin Calcium 40 mg HS PO 06/01/25 22:00 06/01/25 20:45 40 MG Sevelamer HCl 800 mg TIDWM PO 06/01/25 18:00 06/02/25 12:19 800 MG Diagnostic Test (Pha) 1 strip ACHS 06/01/25 17:00 06/02/25 11:27 1 STRIP Insulin Human Regular HS SC 06/01/25 22:00 06/01/25 21:02 2 UNITS Insulin Human Regular AC SC 06/01/25 17:00 06/02/25 11:37 3 UNITS Dextrose 50 ml UD PRN IV 06/01/25 12:15 Ceftriaxone Sodium 50 ml @ 100 mls/hr DAILY@09 IV 06/03/25 09:00 Laboratory Results Laboratory Tests 06/02/25 06:05 Chemistry Test 06/02/25 06:05 Albumin 4.7 g/dL (3.2-4.8) Calcium Level 9.4 mg/dL (8.7-10.4) Total Protein 7.2 g/dL (5.7-8.2) LFT Test 06/02/25 06:05 Alanine Aminotransferase (ALT) 16 U/L (7-40) Alkaline Phosphatase 59 U/L (46-116) Aspartate Amino Transferase (AST) 5 U/L (13-40) L Total Bilirubin 0.2 mg/dL (0.2-1.0) Urinalysis Test 06/01/25 08:17 Urine Color Colorless (Yellow) Urine Clarity Turbid (Clear) H Urine pH 7.5 (5.0-9.0) Urine Specific [place] 1.012 (1.001-1.035) Urine Protein 2+ (Negative) H Urine Ketones Negative (Negative) Urine Blood Negative /uL (Negative) Urine Nitrite Negative (Negative) Urine Bilirubin Negative (Negative) Urine Urobilinogen Normal mg/dL (Negative) Urine Leukocyte Esterase 1+ /uL (Negative) Urine RBC 1 /hpf (0 - 4) Urine Microscopic WBC 13 /HPF (0-5) H Urine Squamous Epithelial Cells Mod /hpf (<5) Urine Bacteria Many /hpf (None Seen) H Urine Hyaline Casts Few /lpf (0 - 2) Urine Glucose 1+ mg/dL (Normal) H Labs and/or images reviewed: Labs reviewed by me, Image(s) reviewed by me Assessment/Plan Assessment/Plan Acute hyperkalemia, Ataxia, Tremors, Dialysis disequilibrium syndrome UTI, ESRD on HD, consult for Dr. Vaughan Fluid overload, Fracture of 1st distal phalanx, CHF, Diabetes, Hypertension, Hyperlipidemia, Time spent 70 minutes Advanced care planning time 20 minutes Patient is full code Plan discussed with: Patient Date of Service: Jun 02, 2025 Billing Provider: WANDA BURNETT MD Common Visit Codes: [id number] CARE 30-74 MIN WANDA BURNETT MD Jun 02, 2025 13:12
[2025-06-02] MEDS ORDERED: ALBUMIN 25% 100 ML IV PRN (14:15)
[2025-06-02] MEDS: SODIUM CHL 0.9% 1000 ML BAG XX ONE (14:30)
--- NOTE | 2025-06-02 15:36 | DVHPN2 ---
Progress Note - Dictate Date Seen: Jun 02, 2025 Medical Necessity Reason Pt with a Central, PICC or Fol: Yes Subjective Generalized weakness is improving vital signs Vital Sign Date Time Temp Pulse Resp B/P (MAP) Pulse Ox O2 Delivery O2 Flow Rate FiO2 06/02/25 12:31 97.6 92 19 89/50 (63) 91 97.6 06/02/25 00:41 Room Air* 0 21 Total Intake and Output 06/01/25 06/01/25 06/02/25 15:00 23:00 07:00 Intake Total 0 ml Output Total 0 ml Balance 0 ml medications Current Medications Medications Dose Ordered Sig/Haylie Route Start Time Stop Time Status Last Admin Dose Admin Sodium Chloride 10 ml Q8HR IV 06/01/25 14:00 06/02/25 06:24 10 ML Acetaminophen/ Hydrocodone Bitart 1 tab Q4HP PRN PO 06/01/25 12:00 06/02/25 15:30 1 TAB Ondansetron HCl 4 mg Q4HP PRN IV 06/01/25 12:00 Docusate Sodium 100 mg BIDPRN PRN PO 06/01/25 12:00 Acetaminophen 650 mg Q6HP PRN PO 06/01/25 12:00 06/02/25 08:52 650 MG Nitroglycerin 0.4 mg Q5MINP PRN SL 06/01/25 12:00 Morphine Sulfate 2 mg Q30M PRN IV 06/01/25 12:00 Atorvastatin Calcium 40 mg HS PO 06/01/25 22:00 06/01/25 20:45 40 MG Sevelamer HCl 800 mg TIDWM PO 06/01/25 18:00 06/02/25 12:19 800 MG Diagnostic Test (Pha) 1 strip ACHS 06/01/25 17:00 06/02/25 11:27 1 STRIP Insulin Human Regular HS SC 06/01/25 22:00 06/01/25 21:02 2 UNITS Insulin Human Regular AC SC 06/01/25 17:00 06/02/25 11:37 3 UNITS Dextrose 50 ml UD PRN IV 06/01/25 12:15 Ceftriaxone Sodium 50 ml @ 100 mls/hr DAILY@09 IV 06/03/25 09:00 Albumin Human 100 ml @ 100 mls/hr Q1HR PRN IV 06/02/25 14:15 06/02/25 16:59 objective HEENT: No evidence of JVD, no oral ulcers. Facial edema Pulmonary: Diminished on auscultation bilaterally Cardiovascular S1-S2, no S3 or S4 Abdomen: Bowel sounds positive, soft no rebound tenderness Skin: No rash Neurological: Alert, oriented, no focal weakness laboratory and microbiology Laboratory Tests 06/02/25 06:05 Test 06/02/25 06:05 Range/Units Serum Glucose 73 L 74-106 mg/dL Assessment/Plan Assessment: 1. End-stage renal disease on hemodialysis TTS via AV fistula 2. Hyperkalemia, improving 3. Fluid overload, improved 4. Hypertension 5. Diabetes type 2 6. CAD 7. CHF Plan: Dialysis was performed yesterday. Repeat dialysis today Continue HD TTS Discontinue gabapentin upon discharge. This was emphasized today to the patient Low-potassium, renal diet Fluid restriction less than 1 L per day Guilherme for goal hemoglobin 10 to 11 grams/deciliter Continue phosphate binders Continue midodrine p.r.n. Patient was extensively educated about fluid restriction compliance with diet and fluid restriction Thank you very much for allowing us to participate in the care of this patient please contact if you have any questions. Plan discussed with: Patient GERMAINE BO MD Jun 02, 2025 15:36
[2025-06-02] MEDS: ALBUMIN 25% 100 ML IV PRN (17:00)
[2025-06-02] MEDS ORDERED: EPOETIN ALFA-EPBX 4,000 UNIT/ML VIAL SC ONE (21:00)
[2025-06-03] VITALS (8 sets, daily range): BP systolic 95–116; BP diastolic 46–67; PULSE 59–74; RESP 16–18; TEMP 97.3–98.1; O2SAT 94–100
--- NOTE | 2025-06-03 09:22 | DVHPN2 ---
Reviewed: Care Plan, H&P, Labs, Medications, Previous Orders, Radiology Changes from previous H/P or p: No Changes Eyes: No Pain, No Vision change, No Conjunctivae inflammation, No Eyelid inflammation, No Other, No Redness ENT: No Ear pain, No Ear discharge, No Nose pain, No Nose discharge, No Nose congestion, No Mouth pain, No Mouth swelling, No Throat pain, No Throat swelling, No Other Cardiovascular: No Chest Pain, No Palpitations, No Orthopnea, No Paroxysmal Noc. Dyspnea, No Edema, No Lt Headedness, No Other Respiratory: No Cough, No Dry, No Shortness of breath, No SOB with excertion, No Wheezing, No Hemoptysis, No Pleuritic Pain, No Sputum, No Other Gastrointestinal: No Nausea, No Vomiting, No Abdominal Pain, No Diarrhea, No Constipation, No Melena, No Hematochezia, No Other Genitourinary: No Dysuria, No Frequency, No Incontinence, No Hematuria, No Retention, No Other Musculoskeletal: No other, No neck pain, No shoulder pain, No arm pain, No back pain, No hand pain, No leg pain, No foot pain Skin: No Rash, No Lesions, No Jaundice, No Bruising, No Other Objective Vitals Vital Signs Date Time Temp Pulse Resp B/P (MAP) Pulse Ox O2 Delivery O2 Flow Rate FiO2 06/03/25 08:48 98.1 61 17 116/67 (83) 100 98.1 06/03/25 08:05 Room Air* 0 21 Intake/Output Intake and Output 06/03/25 07:00 Intake Total 1100 ml Balance 1100 ml Intake Oral 1050 ml IV Total 50 ml # Voids 1 # Bowel Movements 1 Medications Current Medications Medications Dose Ordered Sig/Haylie Route Start Time Stop Time Status Last Admin Dose Admin Sodium Chloride 10 ml Q8HR IV 06/01/25 14:00 06/03/25 06:13 10 ML Acetaminophen/ Hydrocodone Bitart 1 tab Q4HP PRN PO 06/01/25 12:00 06/02/25 15:30 1 TAB Ondansetron HCl 4 mg Q4HP PRN IV 06/01/25 12:00 Docusate Sodium 100 mg BIDPRN PRN PO 06/01/25 12:00 Acetaminophen 650 mg Q6HP PRN PO 06/01/25 12:00 06/02/25 08:52 650 MG Nitroglycerin 0.4 mg Q5MINP PRN SL 06/01/25 12:00 Morphine Sulfate 2 mg Q30M PRN IV 06/01/25 12:00 Atorvastatin Calcium 40 mg HS PO 06/01/25 22:00 06/02/25 22:18 40 MG Sevelamer HCl 800 mg TIDWM PO 06/01/25 18:00 06/03/25 08:22 800 MG Diagnostic Test (Pha) 1 strip ACHS 06/01/25 17:00 06/03/25 06:19 1 STRIP Insulin Human Regular HS SC 06/01/25 22:00 06/02/25 22:34 3 UNITS Insulin Human Regular AC SC 06/01/25 17:00 06/02/25 11:37 3 UNITS Dextrose 50 ml UD PRN IV 06/01/25 12:15 Ceftriaxone Sodium 50 ml @ 100 mls/hr DAILY@09 IV 06/03/25 09:00 06/03/25 08:22 100 MLS/HR Laboratory Results Laboratory Tests 06/02/25 06:05 Urinalysis Test 06/01/25 08:17 Urine Color Colorless (Yellow) Urine Clarity Turbid (Clear) H Urine pH 7.5 (5.0-9.0) Urine Specific [place] 1.012 (1.001-1.035) Urine Protein 2+ (Negative) H Urine Ketones Negative (Negative) Urine Blood Negative /uL (Negative) Urine Nitrite Negative (Negative) Urine Bilirubin Negative (Negative) Urine Urobilinogen Normal mg/dL (Negative) Urine Leukocyte Esterase 1+ /uL (Negative) Urine RBC 1 /hpf (0 - 4) Urine Microscopic WBC 13 /HPF (0-5) H Urine Squamous Epithelial Cells Mod /hpf (<5) Urine Bacteria Many /hpf (None Seen) H Urine Hyaline Casts Few /lpf (0 - 2) Urine Glucose 1+ mg/dL (Normal) H Labs and/or images reviewed: Labs reviewed by me, Image(s) reviewed by me Assessment/Plan Assessment/Plan Acute hyperkalemia, Ataxia, Tremors, Dialysis disequilibrium syndrome UTI, : Rocephin ESRD on HD, consult for Dr. Vaughan appreciated, patient received hemodialysis Fluid overload, Fracture of 1st distal phalanx, CHF, Diabetes, Hypertension, Hyperlipidemia, Time spent 50 minutes Advanced care planning time 20 minutes Patient is full code Plan discussed with: Patient Date of Service: Jun 03, 2025 Billing Provider: WANDA BURNETT MD Common Visit Codes: [id number] INP/OBS CARE(HIGH) WANDA BURNETT MD Jun 03, 2025 09:22
--- NOTE | 2025-06-03 15:20 | DVHPN2 ---
Progress Note - Dictate Date Seen: Jun 03, 2025 Medical Necessity Reason Pt with a Central, PICC or Fol: Yes Subjective Patient complains of left great toe discoloration which is improving, complains of pain left side of her neck for a month. Undergoing hemodialysis uneventfully otherwise vital signs Vital Sign Date Time Temp Pulse Resp B/P (MAP) Pulse Ox O2 Delivery O2 Flow Rate FiO2 06/03/25 08:48 98.1 61 17 116/67 (83) 100 98.1 06/03/25 08:05 Room Air* 0 21 Total Intake and Output 06/02/25 06/02/25 06/03/25 15:00 23:00 07:00 Intake Total 50 ml 700 ml 350 ml Balance 50 ml 700 ml 350 ml medications Current Medications Medications Dose Ordered Sig/Haylie Route Start Time Stop Time Status Last Admin Dose Admin Sodium Chloride 10 ml Q8HR IV 06/01/25 14:00 06/03/25 14:25 10 ML Acetaminophen/ Hydrocodone Bitart 1 tab Q4HP PRN PO 06/01/25 12:00 06/02/25 15:30 1 TAB Ondansetron HCl 4 mg Q4HP PRN IV 06/01/25 12:00 Docusate Sodium 100 mg BIDPRN PRN PO 06/01/25 12:00 Acetaminophen 650 mg Q6HP PRN PO 06/01/25 12:00 06/02/25 08:52 650 MG Nitroglycerin 0.4 mg Q5MINP PRN SL 06/01/25 12:00 Morphine Sulfate 2 mg Q30M PRN IV 06/01/25 12:00 Atorvastatin Calcium 40 mg HS PO 06/01/25 22:00 06/02/25 22:18 40 MG Sevelamer HCl 800 mg TIDWM PO 06/01/25 18:00 06/03/25 08:22 800 MG Diagnostic Test (Pha) 1 strip ACHS 06/01/25 17:00 06/03/25 11:08 1 STRIP Insulin Human Regular HS SC 06/01/25 22:00 06/02/25 22:34 3 UNITS Insulin Human Regular AC SC 06/01/25 17:00 06/02/25 11:37 3 UNITS Dextrose 50 ml UD PRN IV 06/01/25 12:15 Ceftriaxone Sodium 50 ml @ 100 mls/hr DAILY@09 IV 06/03/25 09:00 06/03/25 08:22 100 MLS/HR Albumin Human 50 ml @ 100 mls/hr Q1HR PRN IV 06/03/25 14:30 objective HEENT: No evidence of JVD, no oral ulcers. Facial edema Pulmonary: Diminished on auscultation bilaterally Cardiovascular S1-S2, no S3 or S4 Abdomen: Bowel sounds positive, soft no rebound tenderness Skin: No rash Neurological: Alert, oriented, no focal weakness Extremities: Left great toe minimal dark discoloration of the skin but distally no cyanosis and capillary refill less than 2 seconds. laboratory and microbiology Laboratory Tests 06/02/25 06:05 Test 06/02/25 06:05 Range/Units Serum Glucose 73 L 74-106 mg/dL Assessment/Plan Assessment: 1. End-stage renal disease on hemodialysis TTS via AV fistula 2. Hyperkalemia, improving 3. Fluid overload, improved 4. Hypertension 5. Diabetes type 2 6. CAD 7. CHF 8. Chronic neck pain Plan: Dialysis TTS I have discussed with the RN about patient's complains of left-sided neck pain and left great toe discoloration to communicate with primary attending. Ultrasound Doppler arterial phase left leg Discontinue gabapentin upon discharge. This was emphasized today to the patient Low-potassium, renal diet Fluid restriction less than 1 L per day Guilherme for goal hemoglobin 10 to 11 grams/deciliter Continue phosphate binders Continue midodrine p.r.n. Patient is okay to discharge home from Nephrology perspective Thank you very much for allowing us to participate in the care of this patient please contact if you have any questions. Plan discussed with: Patient GERMAINE BO MD Jun 03, 2025 15:20
--- NOTE | 2025-06-03 16:06 | DVH ---
LEFT LOWER EXTREMITY ARTERIAL DUPLEX ULTRASOUND STUDY: REASON FOR EXAM: Arterial ischemia. TECHNIQUE: The full lengths of the arterial segments were evaluated with color- flow Doppler ultrasound. Suspected abnormalities were evaluated with wyatt scale ultrasound. [employer] Weaver spectral Doppler waveforms, with velocity measurements were obtained. Spectral waveforms with velocity measurements were obtained 2 to 4 cm central to any areas of significant stenosis. Common femoral, superficial femoral, popliteal, posterior tibial, anterior tibial, and dorsal pedal arteries were evaluated. FINDINGS: There is moderate diffuse atherosclerotic plaque throughout the left lower extremity. The common femoral artery waveform is multiphasic with a brisk upstroke. The superficial femoral and popliteal arteries are patent with multiphasic waveforms. The posterior tibial, anterior tibial, and dorsalis pedis arteries are patent with multiphasic waveforms. IMPRESSION: No hemodynamically significant stenosis.
[2025-06-03] MEDS: ALBUMIN 25% 50 ML IV PRN (16:18)
[2025-06-03] MEDS: DOCUSATE SOD 100 MG CAP PO PRN (19:51)
[2025-06-04] VITALS (8 sets, daily range): BP systolic 68–110; BP diastolic 33–70; PULSE 62–78; RESP 16–18; TEMP 97.8–98.6; O2SAT 95–100
--- NOTE | 2025-06-04 08:22 | DVHPN2 ---
Reviewed: Care Plan, H&P, Labs, Medications, Previous Orders, Radiology Changes from previous H/P or p: No Changes Eyes: No Pain, No Vision change, No Conjunctivae inflammation, No Eyelid inflammation, No Other, No Redness ENT: No Ear pain, No Ear discharge, No Nose pain, No Nose discharge, No Nose congestion, No Mouth pain, No Mouth swelling, No Throat pain, No Throat swelling, No Other Cardiovascular: No Chest Pain, No Palpitations, No Orthopnea, No Paroxysmal Noc. Dyspnea, No Edema, No Lt Headedness, No Other Respiratory: No Cough, No Dry, No Shortness of breath, No SOB with excertion, No Wheezing, No Hemoptysis, No Pleuritic Pain, No Sputum, No Other Gastrointestinal: No Nausea, No Vomiting, No Abdominal Pain, No Diarrhea, No Constipation, No Melena, No Hematochezia, No Other Genitourinary: No Dysuria, No Frequency, No Incontinence, No Hematuria, No Retention, No Other Musculoskeletal: No other, No neck pain, No shoulder pain, No arm pain, No back pain, No hand pain, No leg pain, No foot pain Skin: No Rash, No Lesions, No Jaundice, No Bruising, No Other Objective Vitals Vital Signs Date Time Temp Pulse Resp B/P (MAP) Pulse Ox O2 Delivery O2 Flow Rate FiO2 06/04/25 05:00 97.9 64 16 110/70 (83) 98 97.9 06/03/25 20:00 Room Air* 0 21 Intake/Output Intake and Output 06/04/25 07:00 Intake Total 900 ml Output Total 20 ml Balance 880 ml Intake Oral 850 ml IV Total 50 ml Output Urine Total 20 ml Medications Current Medications Medications Dose Ordered Sig/Haylie Route Start Time Stop Time Status Last Admin Dose Admin Sodium Chloride 10 ml Q8HR IV 06/01/25 14:00 06/04/25 06:19 10 ML Acetaminophen/ Hydrocodone Bitart 1 tab Q4HP PRN PO 06/01/25 12:00 06/04/25 00:59 1 TAB Ondansetron HCl 4 mg Q4HP PRN IV 06/01/25 12:00 Docusate Sodium 100 mg BIDPRN PRN PO 06/01/25 12:00 06/03/25 19:51 100 MG Acetaminophen 650 mg Q6HP PRN PO 06/01/25 12:00 06/02/25 08:52 650 MG Nitroglycerin 0.4 mg Q5MINP PRN SL 06/01/25 12:00 Morphine Sulfate 2 mg Q30M PRN IV 06/01/25 12:00 Atorvastatin Calcium 40 mg HS PO 06/01/25 22:00 06/03/25 22:31 40 MG Sevelamer HCl 800 mg TIDWM PO 06/01/25 18:00 06/03/25 08:22 800 MG Diagnostic Test (Pha) 1 strip ACHS 06/01/25 17:00 06/04/25 06:20 1 STRIP Insulin Human Regular HS SC 06/01/25 22:00 06/03/25 22:00 2 UNITS Insulin Human Regular AC SC 06/01/25 17:00 06/02/25 11:37 3 UNITS Dextrose 50 ml UD PRN IV 06/01/25 12:15 Ceftriaxone Sodium 50 ml @ 100 mls/hr DAILY@09 IV 06/03/25 09:00 06/03/25 08:22 100 MLS/HR Albumin Human 50 ml @ 100 mls/hr Q1HR PRN IV 06/03/25 14:30 06/03/25 16:28 100 MLS/HR Laboratory Results Laboratory Tests 06/02/25 06:05 Urinalysis Test 06/01/25 08:17 Urine Color Colorless (Yellow) Urine Clarity Turbid (Clear) H Urine pH 7.5 (5.0-9.0) Urine Specific [place] 1.012 (1.001-1.035) Urine Protein 2+ (Negative) H Urine Ketones Negative (Negative) Urine Blood Negative /uL (Negative) Urine Nitrite Negative (Negative) Urine Bilirubin Negative (Negative) Urine Urobilinogen Normal mg/dL (Negative) Urine Leukocyte Esterase 1+ /uL (Negative) Urine RBC 1 /hpf (0 - 4) Urine Microscopic WBC 13 /HPF (0-5) H Urine Squamous Epithelial Cells Mod /hpf (<5) Urine Bacteria Many /hpf (None Seen) H Urine Hyaline Casts Few /lpf (0 - 2) Urine Glucose 1+ mg/dL (Normal) H Labs and/or images reviewed: Labs reviewed by me, Image(s) reviewed by me Assessment/Plan Assessment/Plan Acute hyperkalemia, Ataxia, Tremors, Dialysis disequilibrium syndrome UTI, : Rocephin ESRD on HD, consult for Dr. Vaughan appreciated, patient received hemodialysis Fluid overload, Fracture of 1st distal phalanx, CHF, Diabetes, Hypertension, Hyperlipidemia, Time spent 50 minutes Advanced care planning time 20 minutes Physical Therapy ordered Patient is full code Plan discussed with: Patient Date of Service: Jun 04, 2025 Billing Provider: WANDA BURNETT MD Common Visit Codes: [id number] INP/OBS CARE(HIGH) WANDA BURNETT MD Jun 04, 2025 08:22
[2025-06-04 10:54] LABS: Hematocrit 37.6 % (36.0-46.0); Hemoglobin 12.3 g/dL (12.2-16.2); Mean Corpuscular Hemoglobin 32.4 pg (28.0-32.0); Mean Corpuscular Volume 98.8 fL (80.0-100.0); Nucleated Red Blood Cells % 0.2 %
[2025-06-04 11:12] LABS: Alanine Aminotransferase 17 U/L (7-40); Alkaline Phosphatase 48 U/L (46-116); Anion Gap 17 (5-15); BUN/Creatinine Ratio 4.7 (10.0-20.0); Carbon Dioxide 26 mmol/L (20-31); Glucose 103 mg/dL (74-106); Sodium 139 mmol/L (136-145)
[2025-06-04 11:13] LABS: Bilirubin, Total 0.3 mg/dL (0.2-1.0)
[2025-06-04 11:16] LABS: Blood Urea Nitrogen 38 mg/dL (9-23); Calcium 10.5 mg/dL (8.7-10.4); Chloride 96 mmol/L (98-107); Potassium 5.2 mmol/L (3.5-5.1); Total Protein 9.0 g/dL (5.7-8.2)
[2025-06-04 11:25] LABS: Albumin 5.8 g/dL (3.2-4.8)
--- NOTE | 2025-06-04 15:15 | DVHPN2 ---
Progress Note - Dictate Date Seen: Jun 04, 2025 Medical Necessity Reason Pt with a Central, PICC or Fol: Yes Subjective Patient is requesting a bedside commode and walker. vital signs Vital Sign Date Time Temp Pulse Resp B/P (MAP) Pulse Ox O2 Delivery O2 Flow Rate FiO2 06/04/25 13:00 98.1 66 18 95/49 (64) 97 98.1 06/04/25 07:45 Room Air* 0 21 Total Intake and Output 06/03/25 06/03/25 06/04/25 15:00 23:00 07:00 Intake Total 50 ml 350 ml 500 ml Output Total 20 ml 0 ml Balance 50 ml 330 ml 500 ml medications Current Medications Medications Dose Ordered Sig/Haylie Route Start Time Stop Time Status Last Admin Dose Admin Sodium Chloride 10 ml Q8HR IV 06/01/25 14:00 06/04/25 06:19 10 ML Acetaminophen/ Hydrocodone Bitart 1 tab Q4HP PRN PO 06/01/25 12:00 06/04/25 00:59 1 TAB Ondansetron HCl 4 mg Q4HP PRN IV 06/01/25 12:00 Docusate Sodium 100 mg BIDPRN PRN PO 06/01/25 12:00 06/04/25 10:00 100 MG Acetaminophen 650 mg Q6HP PRN PO 06/01/25 12:00 06/02/25 08:52 650 MG Nitroglycerin 0.4 mg Q5MINP PRN SL 06/01/25 12:00 Morphine Sulfate 2 mg Q30M PRN IV 06/01/25 12:00 Atorvastatin Calcium 40 mg HS PO 06/01/25 22:00 06/03/25 22:31 40 MG Sevelamer HCl 800 mg TIDWM PO 06/01/25 18:00 06/03/25 08:22 800 MG Diagnostic Test (Pha) 1 strip ACHS 06/01/25 17:00 06/04/25 11:30 1 STRIP Insulin Human Regular HS SC 06/01/25 22:00 06/03/25 22:00 2 UNITS Insulin Human Regular AC SC 06/01/25 17:00 06/02/25 11:37 3 UNITS Dextrose 50 ml UD PRN IV 06/01/25 12:15 Ceftriaxone Sodium 50 ml @ 100 mls/hr DAILY@09 IV 06/03/25 09:00 06/04/25 09:59 100 MLS/HR Albumin Human 50 ml @ 100 mls/hr Q1HR PRN IV 06/03/25 14:30 06/03/25 16:28 100 MLS/HR objective HEENT: No evidence of JVD, no oral ulcers. Facial edema Pulmonary: Diminished on auscultation bilaterally Cardiovascular S1-S2, no S3 or S4 Abdomen: Bowel sounds positive, soft no rebound tenderness Skin: No rash Neurological: Alert, oriented, no focal weakness Extremities: Left great toe minimal dark discoloration of the skin but distally no cyanosis and capillary refill less than 2 seconds. laboratory and microbiology Laboratory Tests 06/04/25 10:18 Test 06/04/25 10:18 Range/Units Serum Glucose 103 74-106 mg/dL Assessment/Plan Assessment: 1. End-stage renal disease on hemodialysis TTS via AV fistula 2. Hyperkalemia, improving 3. Fluid overload, improved 4. Hypertension 5. Diabetes type 2 6. CAD 7. CHF 8. Chronic neck pain Plan: Dialysis TTS Discontinue gabapentin upon discharge. This was emphasized today to the patient Low-potassium, renal diet Fluid restriction less than 1 L per day Guilherme for goal hemoglobin 10 to 11 grams/deciliter Continue phosphate binders Continue midodrine p.r.n. Patient is okay to discharge home from Nephrology perspective Thank you very much for allowing us to participate in the care of this patient please contact if you have any questions. Plan discussed with: Patient GERMAINE BO MD Jun 04, 2025 15:15
[2025-06-04] MEDS: SODIUM ZIRCONIUM CYCL 10 GM PAK PO ONE (18:16)
[2025-06-05] VITALS (8 sets, daily range): BP systolic 94–118; BP diastolic 50–68; PULSE 63–76; RESP 14–18; TEMP 97–98.1; O2SAT 94–98
[2025-06-05] MEDS ORDERED: SODIUM CHL 0.9% 1000 ML BAG XX ONE (07:00)
[2025-06-05] MEDS ORDERED: CIPR-173 PO (08:33)
--- NOTE | 2025-06-05 08:34 | DVHPN2 ---
Reviewed: Care Plan, H&P, Labs, Medications, Previous Orders, Radiology Changes from previous H/P or p: No Changes Eyes: No Pain, No Vision change, No Conjunctivae inflammation, No Eyelid inflammation, No Other, No Redness ENT: No Ear pain, No Ear discharge, No Nose pain, No Nose discharge, No Nose congestion, No Mouth pain, No Mouth swelling, No Throat pain, No Throat swelling, No Other Cardiovascular: No Chest Pain, No Palpitations, No Orthopnea, No Paroxysmal Noc. Dyspnea, No Edema, No Lt Headedness, No Other Respiratory: No Cough, No Dry, No Shortness of breath, No SOB with excertion, No Wheezing, No Hemoptysis, No Pleuritic Pain, No Sputum, No Other Gastrointestinal: No Nausea, No Vomiting, No Abdominal Pain, No Diarrhea, No Constipation, No Melena, No Hematochezia, No Other Genitourinary: No Dysuria, No Frequency, No Incontinence, No Hematuria, No Retention, No Other Musculoskeletal: No other, No neck pain, No shoulder pain, No arm pain, No back pain, No hand pain, No leg pain, No foot pain Skin: No Rash, No Lesions, No Jaundice, No Bruising, No Other Objective Vitals Vital Signs Date Time Temp Pulse Resp B/P (MAP) Pulse Ox O2 Delivery O2 Flow Rate FiO2 06/05/25 05:00 98.1 72 17 114/68 (83) 97 98.1 06/04/25 20:00 Room Air* 0 21 Intake/Output Intake and Output 06/05/25 07:00 Intake Total 770 ml Balance 770 ml Intake Oral 720 ml IV Total 50 ml # Voids 1 Medications Current Medications Medications Dose Ordered Sig/Haylie Route Start Time Stop Time Status Last Admin Dose Admin Sodium Chloride 10 ml Q8HR IV 06/01/25 14:00 06/05/25 05:00 10 ML Acetaminophen/ Hydrocodone Bitart 1 tab Q4HP PRN PO 06/01/25 12:00 06/04/25 00:59 1 TAB Ondansetron HCl 4 mg Q4HP PRN IV 06/01/25 12:00 Docusate Sodium 100 mg BIDPRN PRN PO 06/01/25 12:00 06/04/25 10:00 100 MG Acetaminophen 650 mg Q6HP PRN PO 06/01/25 12:00 06/02/25 08:52 650 MG Nitroglycerin 0.4 mg Q5MINP PRN SL 06/01/25 12:00 Morphine Sulfate 2 mg Q30M PRN IV 06/01/25 12:00 Atorvastatin Calcium 40 mg HS PO 06/01/25 22:00 06/04/25 20:47 40 MG Sevelamer HCl 800 mg TIDWM PO 06/01/25 18:00 06/04/25 18:08 800 MG Diagnostic Test (Pha) 1 strip ACHS 06/01/25 17:00 06/05/25 05:02 1 STRIP Insulin Human Regular HS SC 06/01/25 22:00 06/03/25 22:00 2 UNITS Insulin Human Regular AC SC 06/01/25 17:00 06/04/25 18:10 3 UNITS Dextrose 50 ml UD PRN IV 06/01/25 12:15 Ceftriaxone Sodium 50 ml @ 100 mls/hr DAILY@09 IV 06/03/25 09:00 06/04/25 09:59 100 MLS/HR Albumin Human 50 ml @ 100 mls/hr Q1HR PRN IV 06/03/25 14:30 06/03/25 16:28 100 MLS/HR Laboratory Results Laboratory Tests 06/04/25 10:18 Chemistry Test 06/04/25 10:18 Albumin 5.8 g/dL (3.2-4.8) H Calcium Level 10.5 mg/dL (8.7-10.4) H Total Protein 9.0 g/dL (5.7-8.2) H LFT Test 06/04/25 10:18 Alanine Aminotransferase (ALT) 17 U/L (7-40) Alkaline Phosphatase 48 U/L (46-116) Aspartate Amino Transferase (AST) 20 U/L (13-40) Total Bilirubin 0.3 mg/dL (0.2-1.0) Urinalysis Test 06/01/25 08:17 Urine Color Colorless (Yellow) Urine Clarity Turbid (Clear) H Urine pH 7.5 (5.0-9.0) Urine Specific [place] 1.012 (1.001-1.035) Urine Protein 2+ (Negative) H Urine Ketones Negative (Negative) Urine Blood Negative /uL (Negative) Urine Nitrite Negative (Negative) Urine Bilirubin Negative (Negative) Urine Urobilinogen Normal mg/dL (Negative) Urine Leukocyte Esterase 1+ /uL (Negative) Urine RBC 1 /hpf (0 - 4) Urine Microscopic WBC 13 /HPF (0-5) H Urine Squamous Epithelial Cells Mod /hpf (<5) Urine Bacteria Many /hpf (None Seen) H Urine Hyaline Casts Few /lpf (0 - 2) Urine Glucose 1+ mg/dL (Normal) H Labs and/or images reviewed: Labs reviewed by me, Image(s) reviewed by me Assessment/Plan Assessment/Plan Acute hyperkalemia, Ataxia, Tremors, Dialysis disequilibrium syndrome UTI, : Rocephin ESRD on HD, consult for Dr. Vaughan appreciated, patient received hemodialysis Fluid overload, CHF Diabetes, Hypertension, Hyperlipidemia, Patient feels better and wants to go home Plan discussed with: Patient Date of Service: Jun 05, 2025 Billing Provider: WANDA BURNETT MD Common Visit Codes: [id number] INP/OBS CARE(HIGH) WANDA BURNETT MD Jun 05, 2025 08:34
--- NOTE | 2025-06-05 08:38 | DVHDS2 ---
Discharge Summary Date of Admission Jun 01, 2025 at 11:50 Date of Discharge: Jun 05, 2025 Admitting Diagnosis Dizziness Wounds: None Labs/Diagnostic Data: Laboratory Results Test 06/05/25 05:03 06/04/25 10:18 06/02/25 14:46 06/01/25 17:02 POC Glucose 126 mg/dl (70-106) White Blood Count 6.1 10^3/uL (4.4-10.8) Red Blood Count 3.81 10^6/uL (4.0-5.20) Hemoglobin 12.3 g/dL (12.2-16.2) Hematocrit 37.6 % (36.0-46.0) Mean Corpuscular Volume 98.8 fL (80.0-100.0) Mean Corpuscular Hemoglobin 32.4 pg (28.0-32.0) Mean Corpuscular Hemoglobin Concent 32.8 g/dL (32.0-36.0) Red Cell Distribution Width 15.0 % (11.8-14.3) Platelet Count 196 10^3/uL (140-450) Mean Platelet Volume 7.6 fL (6.9-10.8) Neutrophils (%) (Auto) 57.0 % (37.0-80.0) Lymphocytes (%) (Auto) 29.8 % (10.0-50.0) Monocytes (%) (Auto) 10.1 % (0.0-12.0) Eosinophils (%) (Auto) 2.2 % (0.0-7.0) Basophils (%) (Auto) 0.9 % (0.0-2.0) Neutrophils # (Auto) 3.5 10 ^3/uL (1.6-8.6) Lymphocytes # (Auto) 1.8 10 ^3/uL (0.4-5.4) Monocytes # (Auto) 0.6 10 ^3/uL (0-1.3) Eosinophils # (Auto) 0.1 10 ^3/uL (0-0.8) Basophils # (Auto) 0.1 10 ^3/uL (0-0.2) Nucleated Red Blood Cells 0.2 % Sodium Level 139 mmol/L (136-145) Potassium Level 5.2 mmol/L (3.5-5.1) Chloride Level 96 mmol/L (98-107) Carbon Dioxide Level 26 mmol/L (20-31) Anion Gap 17 (5-15) Blood Urea Nitrogen 38 mg/dL (9-23) Creatinine 8.17 mg/dL (0.550-1.02) Glomerular Filtration Rate Calc 5 mL/min (>90) BUN/Creatinine Ratio 4.7 (10.0-20.0) Serum Glucose 103 mg/dL (74-106) Calcium Level 10.5 mg/dL (8.7-10.4) Total Bilirubin 0.3 mg/dL (0.2-1.0) Aspartate Amino Transferase (AST) 20 U/L (13-40) Alanine Aminotransferase (ALT) 17 U/L (7-40) Alkaline Phosphatase 48 U/L (46-116) Total Protein 9.0 g/dL (5.7-8.2) Albumin 5.8 g/dL (3.2-4.8) Hepatitis B Surface Antigen Negative (Negative) Stool Occult Blood Negative (Negative) Stool Occult Blood Sample #3 (Negative) Test 06/01/25 09:36 06/01/25 08:17 06/01/25 06:34 Troponin I High Sensitivity 13 ng/L (</=34) Urine Color Colorless (Yellow) Urine Clarity Turbid (Clear) Urine pH 7.5 (5.0-9.0) Urine Specific [place] 1.012 (1.001-1.035) Urine Protein 2+ (Negative) Urine Ketones Negative (Negative) Urine Blood Negative /uL (Negative) Urine Nitrite Negative (Negative) Urine Bilirubin Negative (Negative) Urine Urobilinogen Normal mg/dL (Negative) Urine Leukocyte Esterase 1+ /uL (Negative) Urine RBC 1 /hpf (0 - 4) Urine Microscopic WBC 13 /HPF (0-5) Urine Squamous Epithelial Cells Mod /hpf (<5) Urine Bacteria Many /hpf (None Seen) Urine Hyaline Casts Few /lpf (0 - 2) Urine Glucose 1+ mg/dL (Normal) B-Type Natriuretic Peptide 155.36 pg/mL (0-100) Other Laboratory Tests 06/04/25 10:18 Brief Hx & Hospital Course: 70-year-old female with a ESRD on hemodialysis CHF diabetes hypertension hyperlipidemia noncompliant came in for dizziness after dialysis. Found to have elevated potassium treated with the medications and improved received hemodialysis by Dr. Vaughan mild UTI treated with the Rocephin patient is being discharged home on Cipro for UTI she will continue to follow up with the primary Dr and practice managers for dialysis .patient was educated about compliance with the dialysis Consults/Reason for consult Nephrology Dr. Vaughan Operations or Procedures Hemodialysis Condition at Discharge: Fair Final Diagnosis/Problems List Acute hyperkalemia, Ataxia, Tremors, Dialysis disequilibrium syndrome UTI, : Rocephin ESRD on HD, consult for Dr. Vaughan appreciated, patient received hemodialysis Fluid overload, CHF Diabetes, Hypertension, Hyperlipidemia, Discharge Disposition: Home Discharge Instruct/Medications Diet: Renal Activity: Light activity Follow Up/Referral: Follow up with the primary Dr Follow up with the practice managers Dr Vaughan for regular dialysis Resume all previous home medications Medications: Cipro Transmitted to pharmacy Scheduled Aspirin (Aspir-81), 1 TAB PO DAILY Atorvastatin Calcium (Atorvastatin Calcium), 40 TAB PO DAILY, (Reported) Calcium Acetate (Phosphate Bin (Calcium Acetate), 2 CAP PO TID, (Reported) Ciprofloxacin Hcl (Cipro), 1 TAB PO BID Clopidogrel Bisulfate (Clopidogrel), 1 TAB PO DAILY, (Reported) Clopidogrel Bisulfate (Plavix), 1 TAB PO DAILY Gabapentin (Gabapentin), 1 CAP PO TID, (Reported) Metoprolol Succinate (Toprol Xl), 1 TAB PO DAILY Pantoprazole Sodium Sesquihydr (Protonix), 40 MG PO DAILY Scheduled PRN Sevelamer Carbonate (Sevelamer Carbonate), 800 TAB PO Q8HR PRN, (Reported) Miscellaneous Medications Insulin Glargine (Lantus Solostar), SC, (Reported) 39 (Time taken for discharge summary 39 minutes) Discharge Statement: "Patient was advised to return to the ER or call 911 if any headaches, dizziness, shortness of breath, chest pain, abdominal pain, bleeding, fevers, or worsening of medical condition. Patient was counseled about treatment plan, medications, possible side effects, patientverbalized understanding. All questions were answered to the best of my ability. This discharge took greater then 30 minutes in planning, reviewing documentation, counseling the patient, and discussing with other team members." ASSESSMENT ASSESSMENT Hospital Course Improved Assessment Acute hyperkalemia, Ataxia, Tremors, Dialysis disequilibrium syndrome UTI, : Rocephin ESRD on HD, consult for Dr. Vaughan appreciated, patient received hemodialysis Fluid overload, CHF Diabetes, Hypertension, Hyperlipidemia, Date of Service: Jun 05, 2025 Billing Provider: WANDA BURNETT MD Common Visit Codes: [id number] DISCH DAY >30min WANDA BURNETT MD Jun 05, 2025 08:38
--- NOTE | 2025-06-05 14:04 | DVHPN2 ---
Progress Note - Dictate Date Seen: Jun 05, 2025 Medical Necessity Reason Pt with a Central, PICC or Fol: Yes Subjective No complaints today vital signs Vital Sign Date Time Temp Pulse Resp B/P (MAP) Pulse Ox O2 Delivery O2 Flow Rate FiO2 06/05/25 13:00 97.0 69 16 98/57 (71) 98 97.0 06/05/25 08:00 Room Air* 0 21 Total Intake and Output 06/04/25 06/04/25 06/05/25 15:00 23:00 07:00 Intake Total 170 ml 400 ml 200 ml Balance 170 ml 400 ml 200 ml medications Current Medications Medications Dose Ordered Sig/Haylie Route Start Time Stop Time Status Last Admin Dose Admin Sodium Chloride 10 ml Q8HR IV 06/01/25 14:00 06/05/25 13:05 10 ML Acetaminophen/ Hydrocodone Bitart 1 tab Q4HP PRN PO 06/01/25 12:00 06/05/25 09:01 1 TAB Ondansetron HCl 4 mg Q4HP PRN IV 06/01/25 12:00 Docusate Sodium 100 mg BIDPRN PRN PO 06/01/25 12:00 06/04/25 10:00 100 MG Acetaminophen 650 mg Q6HP PRN PO 06/01/25 12:00 06/02/25 08:52 650 MG Nitroglycerin 0.4 mg Q5MINP PRN SL 06/01/25 12:00 Morphine Sulfate 2 mg Q30M PRN IV 06/01/25 12:00 Atorvastatin Calcium 40 mg HS PO 06/01/25 22:00 06/04/25 20:47 40 MG Sevelamer HCl 800 mg TIDWM PO 06/01/25 18:00 06/05/25 12:38 800 MG Diagnostic Test (Pha) 1 strip ACHS 06/01/25 17:00 06/05/25 12:31 1 STRIP Insulin Human Regular HS SC 06/01/25 22:00 06/03/25 22:00 2 UNITS Insulin Human Regular AC SC 06/01/25 17:00 06/05/25 12:32 3 UNITS Dextrose 50 ml UD PRN IV 06/01/25 12:15 Ceftriaxone Sodium 50 ml @ 100 mls/hr DAILY@09 IV 06/03/25 09:00 06/05/25 08:53 100 MLS/HR Albumin Human 50 ml @ 100 mls/hr Q1HR PRN IV 06/03/25 14:30 06/03/25 16:28 100 MLS/HR objective HEENT: No evidence of JVD, no oral ulcers. Facial edema Pulmonary: Diminished on auscultation bilaterally Cardiovascular S1-S2, no S3 or S4 Abdomen: Bowel sounds positive, soft no rebound tenderness Skin: No rash Neurological: Alert, oriented, no focal weakness Extremities: Left great toe minimal dark discoloration of the skin but distally no cyanosis and capillary refill less than 2 seconds. laboratory and microbiology Laboratory Tests 06/04/25 10:18 Test 06/04/25 10:18 Range/Units Serum Glucose 103 74-106 mg/dL Assessment/Plan Assessment: 1. End-stage renal disease on hemodialysis TTS via AV fistula 2. Hyperkalemia, improving 3. Fluid overload, improved 4. Hypertension 5. Diabetes type 2 6. CAD 7. CHF 8. Chronic neck pain Plan: Dialysis TTS, pending to be dialyzed today per [facility] Low-potassium, renal diet Fluid restriction less than 1 L per day Guilherme for goal hemoglobin 10 to 11 grams/deciliter Continue phosphate binders Continue midodrine p.r.n. Thank you very much for allowing us to participate in the care of this patient please contact if you have any questions. Plan discussed with: Patient GERMAINE BO MD Jun 05, 2025 14:04
[2025-06-05] MEDS: SODIUM ZIRCONIUM CYCL 10 GM PAK PO ONE (17:14)
[2025-06-06 01:00] VITALS: BP 111/61; PULSE 80; RESP 18; TEMP 97.3; O2SAT 98
[2025-06-06 05:00] VITALS: BP 109/65; PULSE 82; RESP 17; TEMP 97.1; O2SAT 97
[2025-06-06 08:00] VITALS: PULSE 61
--- NOTE | 2025-06-06 08:15 | DVHPN2 ---
Reviewed: Care Plan, H&P, Labs, Medications, Previous Orders, Radiology Changes from previous H/P or p: No Changes Eyes: No Pain, No Vision change, No Conjunctivae inflammation, No Eyelid inflammation, No Other, No Redness ENT: No Ear pain, No Ear discharge, No Nose pain, No Nose discharge, No Nose congestion, No Mouth pain, No Mouth swelling, No Throat pain, No Throat swelling, No Other Cardiovascular: No Chest Pain, No Palpitations, No Orthopnea, No Paroxysmal Noc. Dyspnea, No Edema, No Lt Headedness, No Other Respiratory: No Cough, No Dry, No Shortness of breath, No SOB with excertion, No Wheezing, No Hemoptysis, No Pleuritic Pain, No Sputum, No Other Gastrointestinal: No Nausea, No Vomiting, No Abdominal Pain, No Diarrhea, No Constipation, No Melena, No Hematochezia, No Other Genitourinary: No Dysuria, No Frequency, No Incontinence, No Hematuria, No Retention, No Other Musculoskeletal: No other, No neck pain, No shoulder pain, No arm pain, No back pain, No hand pain, No leg pain, No foot pain Skin: No Rash, No Lesions, No Jaundice, No Bruising, No Other Objective Vitals Vital Signs Date Time Temp Pulse Resp B/P (MAP) Pulse Ox O2 Delivery O2 Flow Rate FiO2 06/06/25 05:00 97.1 82 17 109/65 (80) 97 97.1 06/05/25 20:00 Room Air* 0 21 Intake/Output Intake and Output 06/06/25 07:00 Intake Total 1050 ml Output Total 1 ml Balance 1049 ml Intake Oral 1000 ml IV Total 50 ml Output Urine Total 1 ml Stool Total 0 ml # Bowel Movements 1 Medications Current Medications Medications Dose Ordered Sig/Haylie Route Start Time Stop Time Status Last Admin Dose Admin Sodium Chloride 10 ml Q8HR IV 06/01/25 14:00 06/06/25 04:57 10 ML Acetaminophen/ Hydrocodone Bitart 1 tab Q4HP PRN PO 06/01/25 12:00 06/05/25 09:01 1 TAB Ondansetron HCl 4 mg Q4HP PRN IV 06/01/25 12:00 Docusate Sodium 100 mg BIDPRN PRN PO 06/01/25 12:00 06/05/25 17:14 100 MG Acetaminophen 650 mg Q6HP PRN PO 06/01/25 12:00 06/02/25 08:52 650 MG Nitroglycerin 0.4 mg Q5MINP PRN SL 06/01/25 12:00 Morphine Sulfate 2 mg Q30M PRN IV 06/01/25 12:00 Atorvastatin Calcium 40 mg HS PO 06/01/25 22:00 06/05/25 21:07 40 MG Sevelamer HCl 800 mg TIDWM PO 06/01/25 18:00 06/05/25 17:14 800 MG Diagnostic Test (Pha) 1 strip ACHS 06/01/25 17:00 06/06/25 04:58 1 STRIP Insulin Human Regular HS SC 06/01/25 22:00 06/05/25 21:12 3 UNITS Insulin Human Regular AC SC 06/01/25 17:00 06/05/25 17:08 2 UNITS Dextrose 50 ml UD PRN IV 06/01/25 12:15 Ceftriaxone Sodium 50 ml @ 100 mls/hr DAILY@09 IV 06/03/25 09:00 06/05/25 08:53 100 MLS/HR Albumin Human 50 ml @ 100 mls/hr Q1HR PRN IV 06/03/25 14:30 06/03/25 16:28 100 MLS/HR Laboratory Results Laboratory Tests 06/04/25 10:18 Urinalysis Test 06/01/25 08:17 Urine Color Colorless (Yellow) Urine Clarity Turbid (Clear) H Urine pH 7.5 (5.0-9.0) Urine Specific [place] 1.012 (1.001-1.035) Urine Protein 2+ (Negative) H Urine Ketones Negative (Negative) Urine Blood Negative /uL (Negative) Urine Nitrite Negative (Negative) Urine Bilirubin Negative (Negative) Urine Urobilinogen Normal mg/dL (Negative) Urine Leukocyte Esterase 1+ /uL (Negative) Urine RBC 1 /hpf (0 - 4) Urine Microscopic WBC 13 /HPF (0-5) H Urine Squamous Epithelial Cells Mod /hpf (<5) Urine Bacteria Many /hpf (None Seen) H Urine Hyaline Casts Few /lpf (0 - 2) Urine Glucose 1+ mg/dL (Normal) H Labs and/or images reviewed: Labs reviewed by me, Image(s) reviewed by me Assessment/Plan Assessment/Plan Acute hyperkalemia, Ataxia, Tremors, Dialysis disequilibrium syndrome UTI, : Rocephin ESRD on HD, consult for Dr. Vaughan appreciated, patient received hemodialysis Fluid overload, CHF Diabetes, Hypertension, Hyperlipidemia, Patient was discharged home on 06/05/2025 after dialysis, but patient did not get dialysis and waiting for dialysis today Will Go home after commercial real estate assistant Kaitlyn at bedside Plan discussed with: Patient My Orders Orders - WANDA BURNETT MD Procedure Category Date Status Time Discharge DISCHARGE 06/05/25 Transmitted 08:34 Date of Service: Jun 06, 2025 Billing Provider: WANDA BURNETT MD Common Visit Codes: [id number] INP/OBS CARE(HIGH) WANDA BURNETT MD Jun 06, 2025 08:15
[2025-06-06 09:00] VITALS: BP 84/45; PULSE 75; RESP 18; TEMP 97.9; O2SAT 98
[2025-06-06 10:41] VITALS: TEMP 36.6
[2025-06-06 12:44] VITALS: BP 125/79; PULSE 59; RESP 18; TEMP 97.9; O2SAT 98
--- NOTE | 2025-06-06 14:18 | DVHPN2 ---
Progress Note - Dictate Date Seen: Jun 06, 2025 Medical Necessity Reason Pt with a Central, PICC or Fol: Yes Subjective Patient feels better she wants to go home vital signs Vital Sign Date Time Temp Pulse Resp B/P (MAP) Pulse Ox O2 Delivery O2 Flow Rate FiO2 06/06/25 12:44 97.9 59 18 125/79 (94) 98 97.9 06/06/25 08:00 Room Air* 0 21 Total Intake and Output 06/05/25 06/05/25 06/06/25 15:00 23:00 07:00 Intake Total 50 ml 600 ml 400 ml Output Total 0 ml 1 ml Balance 50 ml 600 ml 399 ml medications Current Medications Medications Dose Ordered Sig/Haylie Route Start Time Stop Time Status Last Admin Dose Admin Sodium Chloride 10 ml Q8HR IV 06/01/25 14:00 06/06/25 11:49 10 ML Acetaminophen/ Hydrocodone Bitart 1 tab Q4HP PRN PO 06/01/25 12:00 06/05/25 09:01 1 TAB Ondansetron HCl 4 mg Q4HP PRN IV 06/01/25 12:00 Docusate Sodium 100 mg BIDPRN PRN PO 06/01/25 12:00 06/06/25 08:56 100 MG Acetaminophen 650 mg Q6HP PRN PO 06/01/25 12:00 06/02/25 08:52 650 MG Nitroglycerin 0.4 mg Q5MINP PRN SL 06/01/25 12:00 Morphine Sulfate 2 mg Q30M PRN IV 06/01/25 12:00 Atorvastatin Calcium 40 mg HS PO 06/01/25 22:00 06/05/25 21:07 40 MG Sevelamer HCl 800 mg TIDWM PO 06/01/25 18:00 06/06/25 11:49 800 MG Diagnostic Test (Pha) 1 strip ACHS 06/01/25 17:00 06/06/25 11:38 1 STRIP Insulin Human Regular HS SC 06/01/25 22:00 06/05/25 21:12 3 UNITS Insulin Human Regular AC SC 06/01/25 17:00 06/05/25 17:08 2 UNITS Dextrose 50 ml UD PRN IV 06/01/25 12:15 Ceftriaxone Sodium 50 ml @ 100 mls/hr DAILY@09 IV 06/03/25 09:00 06/05/25 08:53 100 MLS/HR Albumin Human 50 ml @ 100 mls/hr Q1HR PRN IV 06/03/25 14:30 06/03/25 16:28 100 MLS/HR objective HEENT: No evidence of JVD, no oral ulcers. Facial edema Pulmonary: Diminished on auscultation bilaterally Cardiovascular S1-S2, no S3 or S4 Abdomen: Bowel sounds positive, soft no rebound tenderness Skin: No rash Neurological: Alert, oriented, no focal weakness Extremities: Left great toe minimal dark discoloration of the skin but distally no cyanosis and capillary refill less than 2 seconds. laboratory and microbiology Laboratory Tests 06/04/25 10:18 Test 06/04/25 10:18 Range/Units Serum Glucose 103 74-106 mg/dL Assessment/Plan Assessment: 1. End-stage renal disease on hemodialysis TTS via AV fistula 2. Hyperkalemia, improved with dialysis 3. Fluid overload, improved with dialysis 4. Hypertension 5. Diabetes type 2 6. CAD 7. CHF 8. Chronic neck pain Plan: Patient is being dialyzed at this time Low-potassium, renal diet Fluid restriction less than 1 L per day Guilherme for goal hemoglobin 10 to 11 grams/deciliter Continue phosphate binders Continue midodrine p.r.n. Okay to discharge after dialysis Thank you very much for allowing us to participate in the care of this patient please contact if you have any questions. Plan discussed with: Patient GERMAINE BO MD Jun 06, 2025 14:18
== END 2025-06-06 15:17 | disposition home or self-care (01) | DRG 640 ==
LOC: EDBD 06:15 → ER 06:15 → OVERFLOW 11:50 → TELE-CENTR 23:46
PROVIDERS: ADMIT Family Medicine; ATTEND Family Medicine
PROC: 5A1D70Z Performance of Urinary Filtration, Intermittent, Less than 6 Hours Per Day (ICD-10-PCS; principal; 2025-06-01)
PROC: 5A1D70Z Performance of Urinary Filtration, Intermittent, Less than 6 Hours Per Day (ICD-10-PCS; 2025-06-02)
PROC: 5A1D70Z Performance of Urinary Filtration, Intermittent, Less than 6 Hours Per Day (ICD-10-PCS; 2025-06-03)
PROC: 5A1D70Z Performance of Urinary Filtration, Intermittent, Less than 6 Hours Per Day (ICD-10-PCS; 2025-06-06)
DX: E87.5 Hyperkalemia (principal); N18.6 End stage renal disease; I13.2 Hypertensive heart and chronic kidney disease with heart failure and with stage 5 chronic kidney disease, or end stage renal disease; N39.0 Urinary tract infection, site not specified; Z99.2 Dependence on renal dialysis; E11.22 Type 2 diabetes mellitus with diabetic chronic kidney disease; E87.70 Fluid overload, unspecified; I95.3 Hypotension of hemodialysis; I25.10 Atherosclerotic heart disease of native coronary artery without angina pectoris; E78.5 Hyperlipidemia, unspecified; I50.9 Heart failure, unspecified; G89.29 Other chronic pain; E87.8 Other disorders of electrolyte and fluid balance, not elsewhere classified; M54.2 Cervicalgia; R25.1 Tremor, unspecified; R27.0 Ataxia, unspecified; S92.912A Unspecified fracture of left toe(s), initial encounter for closed fracture; Z82.49 Family history of ischemic heart disease and other diseases of the circulatory system; Z83.3 Family history of diabetes mellitus; Z91.119 Patient's noncompliance with dietary regimen due to unspecified reason; X58.XXXA Exposure to other specified factors, initial encounter; Y93.89 Activity, other specified; Y92.89 Other specified places as the place of occurrence of the external cause; Y99.8 Other external cause status
CPT/HCPCS: 36415; 71045; 73620; 80048; 80053; 81001; 82270; 82962; 83880; 84484; 85014; 85018; 85025; 87340; 90935; 93005; 93926; 96365; 96375; 97110; 97116; 97163; 97530; 99291; G0378; J1815; P9047